=== PATIENT | male | born 1950 | race Caucasian/White ===

== ENCOUNTER 2016-08-31 18:59 | Emergency (ER) | payer MEDICARE, OTHER ==
[2016-08-31 19:30] LABS: Urine Bilirubin Negative (NEGATIVE); Urine Blood 250 /ul (NEGATIVE); Urine Ketone 5 mg/dL (NEGATIVE); Urine Nitrite Negative (NEGATIVE); Urine Protein 100 mg/dL (NEGATIVE); Urine Specific Gravity >=1.030 SP.GR. (1.005-1.030); Urine Urobilinogen Normal (NORMAL)
[2016-08-31 19:42] LABS: Urine Appearance Turbid; Urine Bacteria TRACE; Urine Color Yellow; Urine WBC >50 /hpf (0-5)
--- NOTE | 2016-08-31 19:43 | ERNOTE ---
ER Male HPI Date of Service: 08/31/16 Stated Complaint: UTI Time Seen by Provider: 08/31/16 19:22 Source: patient Exam Limitations: no limitations Immunizations: IMMUNIZATION HX Immunizations Up to Date Yes History of Influenza Vaccine No Hx Pneumococcal Vaccination No Allergies/Adverse Reactions: Allergies No Known Allergies Allergy (Verified 01/14/15 07:49) Home Medications: HOME MEDICATIONS Tamsulosin HCl [Flomax] 0.4 mg PO HS 11/07/13 [Last Taken Unknown] Propranolol HCl [Inderal] 15 mg PO BID 06/21/14 [Last Taken 01/14/15 05:00 10 mg ] Blood Sugar Diagnostic, Drum [Accu-Chek Compact] 1 each MC DAILY 01/08/15 [Last Taken Unknown] Primidone [Mysoline] 25 mg PO DAILY 01/08/15 [Last Taken Unknown] metFORMIN HCL [Glucophage] 850 mg PO BIDWM 01/08/15 [Last Taken Unknown] oxyCODONE HCL [Oxycontin] 10 mg PO BID #20 tab.sr.12h 01/17/15 [Last Taken Unknown] Sulfamethoxazole/Trimethoprim [Bactrim Ds] 1 tab PO BID #28 tab 08/31/16 [Last Taken Unknown] - History of Present Illness Narrative: Pt. comes in with c/o dysuria, frequency, and retention for four days. Pt. states that he has vague R flank pain since this morning as well. Pt. denies any SOB, wheezing, NVD, but does state that he has bladder pain that is unrelieved as he has difficulty urinating and states that if he could urinate it would be better. Review of Systems - Review of Systems Constitutional: Present: no symptoms reported. Absent: recent illness, fever, chills, fatigue, malaise EYE: Present: no symptoms reported ENT: Present: no symptoms reported Respiratory: Present: no symptoms reported. Absent: shortness of breath, cough , wheezing Cardiology: Present: no symptoms reported. Absent: chest pain, palpitations, edema Gastrointestinal/Abdominal: Present: no symptoms reported. Absent: nausea, vomiting, diarrhea, abdominal pain Genitourinary: Present: frequency, pain, dysuria, decreased urinary output, discharge. Absent: hematuria Musculoskeletal: Present: no symptoms reported. Absent: back pain, joint pain Skin: Present: no symptoms reported Neurological: Present: no symptoms reported All Other Systems: All systems neg except as marked - Patient's Past Medical History Patient History - Medical: Chronic Pain, Diabetes Type 2, Kidney stone, Osteoarthritis Patient History - Cancer: No Hx of Cancer Patient History - Surgical Procedures: Amputation, Gastric Bypass - Family History Mother Family History - Medical: Diabetes Type 2 Family History - Cardiac/Respiratory: No pertinent hx Father Family History - Medical: Family History - Cardiac/Respiratory: Coronary Heart Disease, COPD Grandmother-Paternal Family History - Medical: , Diabetes Type 2 Family History - Cardiac/Respiratory: No pertinent hx Grandmother-Maternal Family History - Medical: , Diabetes Type 2 Family History - Cardiac/Respiratory: No pertinent hx - Social History Living Situations: home Smoking Status: Former smoker Alcohol Use: rarely Physical Exam - Physical Exam General Appearance: Present: wd/wn, alert, no apparent distress Eye Exam: Normal inspection: bilateral, PERRL: bilateral, EOMI: bilateral Ears, Nose, Throat: Present: normal ENT inspection, hearing grossly normal, normal pharynx Neck: Present: normal inspection, nontender. Absent: lymphadenopathy (R), lymphadenopathy (L) Respiratory: Present: no respiratory distress, normal breath sounds, no accessory muscle use, chest nontender, lungs clear Cardiovascular/Chest: Present: regular rate, rhythm, normal peripheral pulses, systolic murmur Male Genitals Exam: Present: normal genitalia, no hernia, high riding prostate. Absent: epididymal tenderness, scrotum tenderness (R), scrotum tenderness (L) , testicular tenderness (R), testicular tenderness (L), urethral discharge Back Exam: Present: normal range of motion, no vertebral tenderness, CVA tenderness (R) Extremity Exam: Present: normal inspection Neurological Exam: Present: alert, oriented, normal mood/affect, no motor/ sensory deficits Skin Exam: Present: normal color, warm/dry. Absent: pallor, skin rash ED Progress - Results and Orders Patient's Lab Results:: I have reviewed the patient's lab results. - Vital Signs Patient's Vital Signs:: I have reviewed the patient's vital signs. Vital Signs: Vital Signs 08/31/16 19:17 Temperature 36.7 C Pulse Rate 71 Respiratory 16 Rate Blood Pressure 139/73 O2 Sat by Pulse 97 Oximetry - CT/Ultrasound CT/Ultrasound Narrative: CT scan notable to not have any renal stones but with R hydronephrosis and hydroureter with bladder wall thickening - Progress/Reassessment Chief Complaint: Genitourinary Problem Plan - Plan Plan: Cystitis- Will treat as infectious with Bactrim and have pt. follow up with his PCP for further evaluation of his urinary system Departure Clinical Impression: Cystitis, Pyelonephritis, acute Prostatitis Qualifiers: Prostatitis type: acute Qualified Code(s): N41.0 - Acute prostatitis - Departure Disposition: Home self-care Condition: Good Instructions: Prostatitis, [id number] Additional Instructions: Please follow up with primary provider in 2-3 days to discuss further workup. Referrals: Carlos Luo DO [Primary Care Provider] - Prescriptions: Sulfamethoxazole/Trimethoprim [Bactrim Ds] 1 tab PO BID #28 tab
[2016-08-31 20:14] LABS: Hemoglobin 11.4 gm/dL (13.5-18.0); Mean Cell Volume 77.1 fl (78-100); Mean Corpuscular Hemoglobin 24.4 pg (27-31); Mean Corpuscular Hgb Conc 31.7 g/dl (32-36); Mean Platelet Volume 8.1 fl (6.0-9.5); Neutrophil # 5.8 K/mm3 (1.3-6.0); Neutrophil % 66.9 % (42-75.0); Platelet Count 270 K/mm3 (150-450); Red Blood Count 4.67 M/mm3 (4.7-6.0); Red Cell Distribution Width 15.9 % (11.5-14.0); White Blood Count 8.6 K/mm3 (4.0-10.5)
[2016-08-31 20:27] LABS: Albumin * 3.3 gm/dl (3.4-5.0); Anion Gap 15.2 mmol/L (6.8-13.8); BUN/Creatinine Ratio 18.8 (9.0-21.6); Bilirubin, Total 0.2 mg/dL (0.0-1.1); Ca. Corrected For Albumin 8.6 mg/dL (8.4-10.2); Calcium * 8.4 mg/dL (7.9-10.9); Carbon Dioxide 27.5 mmol/L (24-32.6); Potassium 4.7 mmol/L (3.4-4.6); Total Protein 7.6 gm/dL (6.2-8.2)
[2016-08-31 20:51] VITALS: BP 127/71
[2016-08-31] MEDS ORDERED: SULFAMETHOXAZOLE/TRIMETHOPRIM 1 TAB TABLET PO ONE (21:31)
[2016-08-31] MEDS ORDERED: SULFAMETHOXAZOLE/TRIMETHOPRIM 1 TAB TABLET ONE (21:31)
== END 2016-08-31 21:36 | disposition home or self-care (01) ==
LOC: ER 18:59
PROC: BT40ZZZ Ultrasonography of Bladder (ICD-10-PCS; principal; 2016-08-31)
DX: N30.00 Acute cystitis without hematuria (principal); N10 Acute pyelonephritis; N41.0 Acute prostatitis; Z87.891 Personal history of nicotine dependence; E11.9 Type 2 diabetes mellitus without complications; Z87.442 Personal history of urinary calculi

== ENCOUNTER 2016-09-08 13:07 | Observation (INO) | payer MEDICARE, OTHER ==
[2016-09-08 13:48] LABS: Hemoglobin 10.5 gm/dL (13.5-18.0); Mean Cell Volume 77.8 fl (78-100); Mean Corpuscular Hgb Conc 30.9 g/dl (32-36); Mean Platelet Volume 8.2 fl (6.0-9.5); Neutrophil # 7.9 K/mm3 (1.3-6.0); Neutrophil % 72.9 % (42-75.0); Platelet Count 270 K/mm3 (150-450); Red Blood Count 4.37 M/mm3 (4.7-6.0); Red Cell Distribution Width 16.4 % (11.5-14.0); White Blood Count 10.8 K/mm3 (4.0-10.5)
[2016-09-08 14:02] LABS: Albumin * 3.4 gm/dl (3.4-5.0); Anion Gap 18.1 mmol/L (6.8-13.8); BUN/Creatinine Ratio 12.8 (9.0-21.6); Bilirubin, Total 0.2 mg/dL (0.0-1.1); Ca. Corrected For Albumin 9.2 mg/dL (8.4-10.2); Carbon Dioxide 21.6 mmol/L (24-32.6); Potassium 5.7 mmol/L (3.4-4.6); Total Protein 7.3 gm/dL (6.2-8.2)
[2016-09-08] MEDS ORDERED: NORMAL SALINE 1,000 ML IV ONE (14:36)
[2016-09-08] MEDS ORDERED: SODIUM POLYSTYRENE SULFON/SORB 15 G/60 ML BTL PO ONE ×2 (14:48→20:28)
--- NOTE | 2016-09-08 14:49 | ERNOTE ---
Medical Problem HPI - Narrative Date of Service: 09/08/16 - General Chief Complaint: General Assessment Time Seen by Provider: 09/08/16 14:15 Source: patient Exam Limitations: no limitations - Immun/Allergies/Home Medications Immunizations: IMMUNIZATION HX Immunizations Up to Date Yes History of Influenza Vaccine No Hx Pneumococcal Vaccination No Allergies/Adverse Reactions: Allergies Influenza Virus Vaccines Adverse Reaction (Verified 09/08/16 13:26) Vomiting Home Medications: HOME MEDICATIONS Tamsulosin HCl [Flomax] 0.4 mg PO HS 11/07/13 [Last Taken Unknown] Propranolol HCl [Inderal] 15 mg PO BID 06/21/14 [Last Taken 01/14/15 05:00 10 mg ] Blood Sugar Diagnostic, Drum [Accu-Chek Compact] 1 each MC DAILY 01/08/15 [Last Taken Unknown] Primidone [Mysoline] 25 mg PO DAILY 01/08/15 [Last Taken Unknown] metFORMIN HCL [Glucophage] 850 mg PO BIDWM 01/08/15 [Last Taken Unknown] oxyCODONE HCL [Oxycontin] 10 mg PO BID #20 tab.sr.12h 01/17/15 [Last Taken Unknown] Sulfamethoxazole/Trimethoprim [Bactrim Ds] 1 tab PO BID #28 tab 08/31/16 [Last Taken Unknown] - History of Present History Narrative: Pt. comes in with c/o being notified of an elevated potassium by his urology office during a follow up exam for catheter removal. Pt. was recently treated for acute urinary retention. Pt. denies any symptoms as CP, palpitations, SOB, NVD, dysuria but does state that he has had some blood in his urine since this morning when he had a catheter removed. Review of Systems - Review of Systems Constitutional: Present: no symptoms reported. Absent: recent illness, fever, chills, weakness, fatigue, malaise EYE: Present: no symptoms reported ENT: Present: no symptoms reported Respiratory: Present: no symptoms reported. Absent: shortness of breath, cough , wheezing Cardiology: Present: no symptoms reported. Absent: chest pain, palpitations, edema Gastrointestinal/Abdominal: Present: no symptoms reported. Absent: nausea, vomiting, diarrhea Genitourinary: Present: hematuria. Absent: frequency, pain, dysuria, decreased urinary output Musculoskeletal: Present: no symptoms reported. Absent: back pain, joint pain Skin: Present: no symptoms reported Neurological: Present: no symptoms reported. Absent: headache, dizziness/light- headedness, numbness, tingling All Other Systems: All systems neg except as marked - Patient's Past Medical History Patient History - Medical: Chronic Pain, Diabetes Type 2, Kidney stone, Osteoarthritis Patient History - Cancer: No Hx of Cancer Patient History - Surgical Procedures: Amputation, Gastric Bypass - Family History Mother Family History - Medical: Diabetes Type 2 Family History - Cardiac/Respiratory: No pertinent hx Father Family History - Medical: Family History - Cardiac/Respiratory: Coronary Heart Disease, COPD Grandmother-Paternal Family History - Medical: , Diabetes Type 2 Family History - Cardiac/Respiratory: No pertinent hx Grandmother-Maternal Family History - Medical: , Diabetes Type 2 Family History - Cardiac/Respiratory: No pertinent hx - Social History Living Situations: home Smoking Status: Former smoker Have you smoked in the past 12 months: No Alcohol Use: rarely Physical Exam - Physical Exam General Appearance: Present: wd/wn, alert, no apparent distress Eye Exam: Normal inspection: bilateral, PERRL: bilateral, EOMI: bilateral Ears, Nose, Throat: Present: normal ENT inspection, hearing grossly normal, normal pharynx Neck: Present: normal inspection, nontender. Absent: lymphadenopathy (R), lymphadenopathy (L) Respiratory: Present: no respiratory distress, normal breath sounds, no accessory muscle use, chest nontender, lungs clear Cardiovascular/Chest: Present: regular rate, rhythm, no murmur, normal peripheral pulses Gastrointestinal/Abdominal: Present: normal bowel sounds, nontender, nondistended, soft, no organomegaly Back Exam: Present: normal inspection, normal range of motion, no CVA tenderness , no vertebral tenderness Extremity Exam: Present: normal inspection, non-tender, no edema, normal range of motion Neurological Exam: Present: alert, oriented, normal mood/affect, no motor/ sensory deficits, 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 Absent: pallor, skin rash ED Progress - Date and Time Seen: Date and Time: 09/08/16 15:[address] Aldana and he would like us to re-CT pt. to evaluate for acute obstruction. Discussed results with Dr Aldana and he recommends admission to monitor for potassium levels and hydration. 09/08/16 16:[address] Luo and he accepts admission of pt. for hyperkalemia and AMBERLY - Results and Orders Patient's Lab Results:: I have reviewed the patient's lab results. - Vital Signs Patient's Vital Signs:: I have reviewed the patient's vital signs. Vital Signs: Vital Signs 09/08/16 09/08/16 13:23 14:08 Temperature 36.4 C L Pulse Rate 65 64 Respiratory 12 16 Rate Blood Pressure 102/59 O2 Sat by Pulse 97 98 Oximetry - EKG EKG: other - Sinus herlinda, no U waves or peaked Ts - CT/Ultrasound CT/Ultrasound Narrative: CT pelvis with resolving R sided hydronephrosis and new L sided pelviectasis. - Progress/Reassessment Chief Complaint: General Assessment Departure - Departure Clinical Impression: Hyperkalemia, Acute renal insufficiency Disposition: [facility] Condition: Fair
[2016-09-08] MEDS ORDERED: SODIUM POLYSTYRENE SULFON/SORB 15 G/60 ML BTL ONE (15:47)
[2016-09-08] MEDS: NORMAL SALINE 1,000 ML IV PRN (17:10)
[2016-09-08] MEDS ORDERED: TAMSULOSIN HCL 0.4 MG CAP.SR.24H PO SCH (21:00)
--- NOTE | 2016-09-08 21:23 | HP ---
Chief Complaint - Chief Complaint Date of Service: 09/08/16 Time of Service: 21:22 Chief Complaint: ' HOWARD, Hyperkalemia'. Source- Pt; reliable, ER provider notes , Pt's EMR. History of Present Illness: Mr. Bhandari is a 65-yr-old WM pt of Dr Carlos Luo with a PMH of: DM II, DVT, HTN, Kidney Stones, ALEJANDRO & Osteoathritis. Pt has been seeing Urology ( Dr. Soto) for urinary retention. He was treated recently for Hydronephrosis and his indwelling arias catheter was removed today at the urologist's office during a follow-up visit at the [facility]. Pt was referred to come to the [facility] ER today following abdominal labs that were drawn at Dr. Soto's office. His Potassium level was specifically found to be elevated at 5.7. The laboratory work in the ER showed HOWARD with a BUN/creatinine of 25/ 1.95. Pt denies fever & chills. He also denies n/v, diarrhea & Dysuria. Pt will be admitted under observation status due to HOWARD, & Hyperkalemia which will require correction with IVF hydration. 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 - Family History Mother Family History - Medical: , Diabetes Type 2 Family History - Cardiac/Respiratory: No pertinent hx Father Family History - Medical: Family History - Cardiac/Respiratory: Coronary Heart Disease, COPD Grandmother-Paternal Family History - Medical: , Diabetes Type 2 Family History - Cardiac/Respiratory: No pertinent hx Grandmother-Maternal Family History - Medical: , Diabetes Type 2 Family History - Cardiac/Respiratory: No pertinent hx - Social History Living Situations: home Smoking Status: Former smoker Have you smoked in the past 12 months: No Do you dip or chew tobacco: No Patient requests Smoking Cessation Consult: No Initiate information on Smoking Cessation: No Alcohol Use: rarely - Immunizations Immunizations Up to Date: Yes Hx Pneumococcal Vaccination: Yes History of Influenza Vaccine: Yes Review Of Systems (GEN) - Review of Systems Generalized/Overall Review: Absent: Weakness, Chills, Fever EENTM: Absent: Eye Pain, Blurred Vision, Double Vision, Nose Congestion Respiratory: Absent: Cough, Shortness of Breath Cardiac: Absent: Chest Pain, Edema, Palpitations Abdominal: Absent: Nausea, Vomiting, Abdominal Pain, Diarrhea Genitourinary: Absent: Burning, Itching Musculoskeletal: Absent: Joint Pain, Back Pain, Joint Swelling Neurological: Absent: Headache, Anxiety, Depressed, Tremors Skin: Absent: Dryness, Lesions, Lumps Endocrine: Absent: Intolerance to Cold, Intolerance to Heat, Increased Thirst Misc: All systems neg except as marked Allergies/Adverse Reactions: Allergies Allergy/AdvReac Type Severity Reaction Status Date / Time Influenza Virus Vaccines AdvReac Vomiting Verified 09/08/16 18:07 Home Medications: HOME MEDICATIONS Tamsulosin HCl [Flomax] 0.4 mg PO HS 11/07/13 [Last Taken Unknown] Propranolol HCl [Inderal] 15 mg PO BID 06/21/14 [Last Taken 09/08/16] Blood Sugar Diagnostic, Drum [Accu-Chek Compact] 1 each MC DAILY 01/08/15 [Last Taken Unknown] Primidone [Mysoline] 150 mg PO TID 01/08/15 [Last Taken 09/08/16] metFORMIN HCL [Glucophage] 850 mg PO BIDWM 01/08/15 [Last Taken 09/08/16] Sulfamethoxazole/Trimethoprim [Bactrim Ds] 1 tab PO BID #28 tab 08/31/16 [Last Taken 09/08/16] oxyCODONE HCL [Oxycontin] 10 mg PO BID PRN 09/08/16 [Last Taken Unknown] Exam - Exam Vital Signs: Vital Signs - Last Taken Temp 36.8 C 09/08/16 17:17 Pulse 71 09/08/16 17:17 Resp 16 09/08/16 17:17 BP 132/60 09/08/16 17:17 Pulse Ox 98 09/08/16 17:17 Constitutional: Present: Alert, Oriented x3, No distress ENT Exam: Present: normal ENT inspection, hearing grossly normal. Absent: nasal congestion, nasal drainage Eye Exam: bilateral eye: normal inspection, PERRL Neck: Present: full range of motion Back Exam: Present: normal inspection, no CVA tenderness Breasts: Present: Exam deferred Respiratory: Present: lungs clear, no accessory muscle use, No wheezing Cardiovascular/Chest: Present: regular rate, rhythm, no murmur Abdomen: Present: Normal bowel sounds, soft, nontender /Rectal: Present: Exam deferred Extremity: Present: normal range of motion, non-tender, no calf tenderness, other - RT AKA Skin Exam: Present: warm/dry, no cyanosis, cool/dry Neurologic: Present: no motor/sensory deficits, alert, oriented x 3 Appearance: Present: appropriate appearance, appropriate insight Eye contact: Present: cooperative, good eye contact, normal speech Thoughts: Present: normal thought pattern, no apparent hallucination Diagnostic Studies: Laboratory Results WBC 10.8 K/mm3 (4.0-10.5) H 09/08/16 13:44 Corrected WBC (auto) Ag[employer] 09/08/16 13:44 RBC 4.37 M/mm3 (4.7-6.0) L 09/08/16 13:44 Hgb 10.5 gm/dL (13.5-18.0) L 09/08/16 13:44 Hct 34.0 % (42.0-52.0) L 09/08/16 13:44 MCV 77.8 fl (78-100) L 09/08/16 13:44 MCH 24.0 pg (27-31) L 09/08/16 13:44 MCHC 30.9 g/dl (32-36) L 09/08/16 13:44 RDW 16.4 % (11.5-14.0) H 09/08/16 13:44 Plt Count 270 K/mm3 (150-450) 09/08/16 13:44 MPV 8.2 fl (6.0-9.5) 09/08/16 13:44 Immature Gran % (Auto) 0.60 % (0.001-0.429) H 09/08/16 13:44 Immature Gran # (Auto) 0.06 K/mm3 (0.000-0.0310) H 09/08/16 13:44 Add Manual Diff Cancelled 09/08/16 13:44 Neutrophils % 72.9 % (42-75.0) 09/08/16 13:44 Lymphocytes % 18.8 % (20-51) L 09/08/16 13:44 Monocytes % 4.5 % (0.0-9) 09/08/16 13:44 Eosinophils % 2.4 % (0.0-3.0) 09/08/16 13:44 Basophils % 0.8 % (0.0-1.0) 09/08/16 13:44 Nucleated RBC % 0.0 k/mm3 (0-1) 09/08/16 13:44 Neutrophils # 7.9 K/mm3 (1.3-6.0) H 09/08/16 13:44 Lymphocytes # 2.0 k/mm3 (1.5-3.5) 09/08/16 13:44 Monocytes # 0.5 k/mm3 (0.0-1.0) 09/08/16 13:44 Eosinophils # 0.3 k/mm3 (0.0-0.7) 09/08/16 13:44 Absolute Basophils 0.1 k/mm3 (0.0-0.1) 09/08/16 13:44 Sodium 132 mmol/L (132-142) 09/08/16 13:44 Plasma Sodium 132 mmol/L (130-142) 09/08/16 13:44 Potassium 5.7 mmol/L (3.4-4.6) H D 09/08/16 13:44 Chloride 98 mmol/L (97-106) 09/08/16 13:44 Carbon Dioxide 21.6 mmol/L (24-32.6) L 09/08/16 13:44 Anion Gap 18.1 mmol/L (6.8-13.8) H 09/08/16 13:44 BUN 25 mg/dL (6-23) H D 09/08/16 13:44 Creatinine 1.95 mg/dL (0.4-1.4) H D 09/08/16 13:44 Est GFR (Non-Af Amer) 37 mL/min (60-130) L D 09/08/16 13:44 BUN/Creatinine Ratio 12.8 (9.0-21.6) 09/08/16 13:44 Random Glucose 98 mg/dL (70-110) 09/08/16 13:44 Calcium 9.0 mg/dL (7.9-10.9) 09/08/16 13:44 Calcium Adj for Albumin 9.2 mg/dL (8.4-10.2) 09/08/16 13:44 Total Bilirubin 0.2 mg/dL (0.0-1.1) 09/08/16 13:44 AST 20 U/L (0-48) 09/08/16 13:44 ALT 20 U/L (19-67) 09/08/16 13:44 Alkaline Phosphatase 110 U/L (50-170) 09/08/16 13:44 Total Protein 7.3 gm/dL (6.2-8.2) 09/08/16 13:44 Albumin 3.4 gm/dl (3.4-5.0) 09/08/16 13:44 Assessment/Plan - Assessment/Plan (1) Acute kidney failure Assessment: Mr. Bhandari is a 65-yr-old WM with known history of Kidney stones who was seen recently by Urology for Hydronephrosis. I do not have access to the Urologist's notes to determine the course of events and interventions. It does appear from clinical presentation today that he had signs of HOWARD. His base line Cr is usually under 1.00, whereas with today's electrolyte labs, it was 1.95. He is not on any nephrotoxic drugs & he does not have any sign of volume overload. His HOWARD dose not seem to have any prerenal causes as is there is no volume depletion from diarrhea, or diuretics or signs of hemorrhage. I suspect that his HOWARD is likely post-renal but with his catheter being removed on by the urolology, am uncertain if there is extrarenal or intrarenal obstruction. Will provide aggressive hydration with IVF and consult Urology again in am. Monitor labs in am Problem: Acute (2) Hyperkalemia Assessment: Received Kayexalate in ER. Will place on Remote telemetry monitoring, IVF hydration. Labs in am. Problem: Acute (3) HTN (hypertension) Problem: Chronic Qualifiers: Hypertension type: essential hypertension Qualified Code(s): I10 - Essential (primary) hypertension (4) Diabetes mellitus Problem: Chronic Qualifiers: Diabetes mellitus type: type 2
[2016-09-08] MEDS: PRIMIDONE 50 MG TABLET PO SCH (21:25)
[2016-09-08] MEDS: PROPRANOLOL HCL 10 MG TABLET PO SCH (21:25)
[2016-09-08 23:25] LABS: Urine Bilirubin Negative (NEGATIVE); Urine Blood 250 /ul (NEGATIVE); Urine Ketone Negative (NEGATIVE); Urine Nitrite Negative (NEGATIVE); Urine Protein 100 mg/dL (NEGATIVE); Urine Specific Gravity 1.015 SP.GR. (1.005-1.030); Urine Urobilinogen Normal (NORMAL)
[2016-09-08 23:40] LABS: Urine Appearance Turbid; Urine Bacteria TRACE; Urine Color Red; Urine RBC >50 /hpf (0-5); Urine WBC 0-5 /hpf (0-5)
[2016-09-09] MEDS: NORMAL SALINE 1,000 ML IV PRN ×2 (01:22→09:30)
[2016-09-09 05:36] LABS: Hemoglobin 9.8 gm/dL (13.5-18.0); Mean Cell Volume 76.5 fl (78-100); Mean Corpuscular Hemoglobin 24.2 pg (27-31); Mean Corpuscular Hgb Conc 31.6 g/dl (32-36); Mean Platelet Volume 8.5 fl (6.0-9.5); Neutrophil # 4.6 K/mm3 (1.3-6.0); Neutrophil % 65.9 % (42-75.0); Platelet Count 228 K/mm3 (150-450); Red Blood Count 4.05 M/mm3 (4.7-6.0); Red Cell Distribution Width 16.1 % (11.5-14.0)
[2016-09-09 05:51] LABS: Anion Gap 12.7 mmol/L (6.8-13.8); BUN/Creatinine Ratio 15.1 (9.0-21.6); Calcium * 8.5 mg/dL (7.9-10.9); Carbon Dioxide 24.3 mmol/L (24-32.6); Estimated Creat Clear 78.3
[2016-09-09] MEDS: PROPRANOLOL HCL 10 MG TABLET PO SCH (09:31)
[2016-09-09] MEDS: PRIMIDONE 50 MG TABLET PO SCH ×3 (09:31→17:14)
--- NOTE | 2016-09-09 17:01 | DS ---
(1) Acute kidney failure Diagnosis(s): Secondary to prerenal dehydration. Corrected with IVF and normalized at discharge. Problem: Suspected (2) Hyperkalemia Diagnosis(s): Resolved with IVF. Problem: Acute Procedures Performed: none Discharge Disposition: Home self care Disposition: Home self-care Condition: Good Discharge Activity: Activity as tolerated Discharge Diet: Consistent carbs Referrals: Jovan Hamlin MD [Associate] - 09/22/16 ([facility] ( Already scheduled) They will call prior to appointment to report a time.) Problem Oriented Discharge Instructions to Patient/Family: Acute Kidney Injury , Hyperkalemia, [id number], Potassium Content of Foods Additional Patient Instructions (free text): 1) Limit foods high in potassium 2) Will recheck bloodwork 09/11/15 3) Drink lots of water LAB - BMP 09/11 Complete Home Medications List: Complete Home Medication List: Tamsulosin HCl [Flomax] 0.4 mg PO HS 11/07/13 Propranolol HCl [Inderal] 15 mg PO BID 06/21/14 Blood Sugar Diagnostic, Drum [Accu-Chek Compact] 1 each MC DAILY 01/08/15 Primidone [Mysoline] 150 mg PO TID 01/08/15 metFORMIN HCL [Glucophage] 850 mg PO BIDWM 01/08/15 Sulfamethoxazole/Trimethoprim [Bactrim Ds] 1 tab PO BID #28 tab 08/31/16 oxyCODONE HCL [Oxycontin] 10 mg PO BID PRN 09/08/16 Amb Orders for Discharge: Basic Metabolic Panel Time Frame: 09/11/16, Facility: [facility], Location: Laboratory
[2016-09-09 18:17] VITALS: BP 122/49
== END 2016-09-09 18:45 | disposition home or self-care (01) ==
LOC: ER 13:07 → MS 16:23
PROVIDERS: ADMIT Family Medicine; ATTEND Family Medicine
DX: N17.9 Acute kidney failure, unspecified (principal); E87.5 Hyperkalemia; E86.0 Dehydration; E11.9 Type 2 diabetes mellitus without complications; I10 Essential (primary) hypertension; Z87.442 Personal history of urinary calculi; Z87.891 Personal history of nicotine dependence
CPT/HCPCS: 36415; 74176; 80048; 80053; 81001; 85025; 87081; 87086; 93005; 99283; G0378

== ENCOUNTER 2016-09-11 22:53 | Emergency (ER) | payer MEDICARE, OTHER ==
[2016-09-11 23:41] LABS: Hematocrit 31.2 % (42.0-52.0); Hemoglobin 9.9 gm/dL (13.5-18.0); Mean Cell Volume 77.4 fl (78-100); Mean Corpuscular Hemoglobin 24.6 pg (27-31); Mean Corpuscular Hgb Conc 31.7 g/dl (32-36); Mean Platelet Volume 8.4 fl (6.0-9.5); Neutrophil # 5.2 K/mm3 (1.3-6.0); Neutrophil % 60.2 % (42-75.0); Platelet Count 276 K/mm3 (150-450); Red Blood Count 4.03 M/mm3 (4.7-6.0); Red Cell Distribution Width 16.5 % (11.5-14.0); White Blood Count 8.6 K/mm3 (4.0-10.5)
[2016-09-11 23:49] LABS: Urine Bilirubin 1 mg/dl (NEGATIVE); Urine Blood 250 /ul (NEGATIVE); Urine Ketone Negative (NEGATIVE); Urine Nitrite Negative (NEGATIVE); Urine Protein 100 mg/dL (NEGATIVE); Urine Specific Gravity >=1.030 SP.GR. (1.005-1.030); Urine Urobilinogen Normal (NORMAL)
[2016-09-11 23:54] LABS: BUN/Creatinine Ratio 11.4 (9.0-21.6); Carbon Dioxide 23.2 mmol/L (24-32.6); Potassium 4.7 mmol/L (3.4-4.6)
[2016-09-11 23:55] LABS: Albumin * 3.2 gm/dl (3.4-5.0); Anion Gap 6.5 mmol/L (6.8-13.8); Bilirubin, Total 0.2 mg/dL (0.0-1.1); Ca. Corrected For Albumin 9.2 mg/dL (8.4-10.2); Calcium * 8.9 mg/dL (7.9-10.9); Total Protein 7.2 gm/dL (6.2-8.2)
[2016-09-12 00:03] LABS: Urine Appearance Turbid; Urine Bacteria 2+; Urine Color Brown; Urine Hyaline Cast 0-5 /LPF; Urine Other Crystal Few - 1+ /hpf; Urine RBC >50 /hpf (0-5)
[2016-09-12] MEDS ORDERED: NORMAL SALINE 1,000 ML IV ONE ×2 (00:08→01:21)
--- NOTE | 2016-09-12 02:18 | ERNOTE ---
Medical Problem HPI - Narrative Date of Service: 09/12/16 - General Chief Complaint: General Assessment Time Seen by Provider: 09/11/16 23:35 Source: patient, family - Immun/Allergies/Home Medications Immunizations: IMMUNIZATION HX Immunizations Up to Date Yes History of Influenza Vaccine No Hx Pneumococcal Vaccination No Allergies/Adverse Reactions: Allergies Influenza Virus Vaccines Adverse Reaction (Verified 09/08/16 18:07) Vomiting Home Medications: HOME MEDICATIONS Tamsulosin HCl [Flomax] 0.4 mg PO HS 11/07/13 [Last Taken Unknown] Propranolol HCl [Inderal] 15 mg PO BID 06/21/14 [Last Taken 09/08/16] Blood Sugar Diagnostic, Drum [Accu-Chek Compact] 1 each MC DAILY 01/08/15 [Last Taken Unknown] Primidone [Mysoline] 150 mg PO TID 01/08/15 [Last Taken 09/08/16] metFORMIN HCL [Glucophage] 850 mg PO BIDWM 01/08/15 [Last Taken 09/08/16] Sulfamethoxazole/Trimethoprim [Bactrim Ds] 1 tab PO BID #28 tab 08/31/16 [Last Taken 09/08/16] oxyCODONE HCL [Oxycontin] 10 mg PO BID PRN 09/08/16 [Last Taken Unknown] - History of Present History Narrative: Here for feeling weak and dehydrated, also complains of Dysuria on BactrimDS Review of Systems - Review of Systems Constitutional: Present: fatigue, malaise EYE: Present: no symptoms reported ENT: Present: no symptoms reported Respiratory: Present: no symptoms reported Cardiology: Present: no symptoms reported Gastrointestinal/Abdominal: Present: no symptoms reported Skin: Present: no symptoms reported - Patient's Past Medical History Patient History - Medical: Chronic Pain, Diabetes Type 2, Kidney stone, Osteoarthritis, Other Patient History - Cardiac/Respiratory: Deep Vein Thrombosis, Hypertension, Other - Kidney Stones Patient History - Cancer: No Hx of Cancer Patient History - Surgical Procedures: Amputation, Gastric Bypass, Total Knee Replacement - Family History Mother Family History - Medical: , Diabetes Type 2 Family History - Cardiac/Respiratory: No pertinent hx Father Family History - Medical: Family History - Cardiac/Respiratory: Coronary Heart Disease, COPD Grandmother-Paternal Family History - Medical: , Diabetes Type 2 Family History - Cardiac/Respiratory: No pertinent hx Grandmother-Maternal Family History - Medical: , Diabetes Type 2 Family History - Cardiac/Respiratory: No pertinent hx - Social History Living Situations: home Smoking Status: Never smoker Have you smoked in the past 12 months: No Do you dip or chew tobacco: No Patient requests Smoking Cessation Consult: No Alcohol Use: rarely Drug Use: none Physical Exam - Physical Exam General Appearance: Present: wd/wn, alert, no apparent distress Neck: Present: normal inspection, nontender Respiratory: Present: no respiratory distress, normal breath sounds, no accessory muscle use, chest nontender, lungs clear Cardiovascular/Chest: Present: regular rate, rhythm, no murmur, normal peripheral pulses ED Progress - Results and Orders Patient's Lab Results:: I have reviewed the patient's lab results. - patient's urine is very concentrated and pt appears dehydrated - Vital Signs Patient's Vital Signs:: I have reviewed the patient's vital signs. Vital Signs: Vital Signs 09/11/16 09/12/16 22:57 00:57 Temperature 36.9 C Pulse Rate 67 55 L Respiratory 16 18 Rate Blood Pressure 114/68 136/76 O2 Sat by Pulse 97 100 Oximetry - Progress/Reassessment Chief Complaint: General Assessment Progress:: Improved Departure - Departure Clinical Impression: Dehydration Disposition: Home self-care Condition: Good Instructions: Rehydration, Adult
[2016-09-12 02:30] VITALS: BP 149/75
== END 2016-09-12 02:35 | disposition home or self-care (01) ==
LOC: ER 22:53
DX: E86.0 Dehydration (principal)

== ENCOUNTER 2016-12-28 15:26 | Emergency (ER) | payer MEDICARE, OTHER ==
[2016-12-28 15:26] VITALS: BP 149/75
--- OUTSIDE RECORDS SUMMARY | 2016-12-28 15:40 | XMS REPORT | Continuity of Care Document ---
:1950 Author Organization [facility] ([facility]) Address [address] [place] [address] Phone [phone] Care Team Providers Name Role Phone Carlos Luo Primary Care Provider [phone] Source Comments This disclosure is being made pursuant to the Care Everywhere program, applicable federal and state laws, and may not contain all informaitonavailable regarding this patient.[facility] ([facility]) Active Allergies and Adverse Reactions No Known Allergies Current Medications Prescription Sig. Disp. Refills Start End Date Status Date metFORMIN Take 850 mg by Active (GLUCOPHAGE) 850 mouth 2 times mg tablet daily. tamsulosin 0.4 mg Take 0.4 mg by Active ER capsule mouth at bedtime. sildenafil Take 1 Tab (100 mg 6 Tab Active (VIAGRA) 100 mg total) by mouth as 5 tablet needed Take 1 hour prior to sexual activity. primidone 50 mg Take 100 mg by Active tablet mouth 3 times daily. bacitracin topical Apply topically 3 15 g Active ointment times daily. 7 docusate 100 mg Take 1 capsule 60 capsule Active capsule (100 mg total) by 7 mouth 2 times daily. oxyCODONE 5 mg Take 1-2 tablets 90 tablet 0 Active immediate release (5-10 mg total) by 7 tablet mouth every 4 hours as needed for pain. sennosides 8.6 mg Take 1-2 tablets 60 tablet 10 Active tablet (8.6-17.2 mg 7 total) by mouth daily. oxyCODONE-acetamin Take 1-2 tablets 90 tablet 0 Active ophen 5-325 mg per by mouth every 4 7 tablet hours as needed. HYDROmorphone 2 mg Take 1-2 Tabs by 30 Tab 0 12/16/19 Discontinued tablet mouth 4 times 4 17 daily as needed (surgical pain). Indications: PAIN oxyCODONE-acetamin Take 1-2 Tabs by 40 Tab 0 12/16/19 Discontinued ophen 5-325 mg per mouth every 6 4 17 tablet hours as needed. Do Not exceed 4000 mg of acetaminophen per 24 hours. Indications: PAIN propranolol 10 mg Take 20 mg by 12/11/19 Discontinued tablet mouth 3 times 17 daily. cephalexin 500 mg Take 1 capsule 4 capsule 0 12/26/19 capsule (500 mg total) by 7 17 mouth 4 times daily for 1 day. Active Problems Problem Noted Date Essential tremor 11/26/2016 Bariatric surgery status 11/19/2016 Hypertension, essential, benign 03/05/2014 Overview: Chronic issue, monitoring Blood pressure, will restart home medications when able. Obstructive sleep apnea 03/05/2014 Hypercholesterolemia 03/05/2014 Overview: On medication Osteoarthrosis, localized, primary, involving lower leg 03/05/2014 Overview: Involved joints include hip and knee. On cymbalta Personal history of pulmonary embolism 03/05/2014 Overview: 2008 after multiple rib fractures, Urethral stricture 12/13/2013 DMII (diabetes mellitus, type 2) 12/13/2013 Overview: Chronic issue, monitoring Blood sugars, on sliding scale to control. S/P below knee amputation 03/04/2012 Resolved Problems Problem Noted Date Resolved Date Obesity (BMI 30-39.9) 03/27/2014 05/09/2015 Overview: Sp gastric bypass on 05/02/14. Obesity hypoventilation syndrome 03/05/2014 11/19/2016 Overview: Obstructive sleep apnea with need for BiPAP. Monitoring in hospital with spO2 and O2 PRN. Most Recent Encounters Date Type Specialty Providers Description 12/25/2016 Nurse Triage General Surgery Ramona Prater Chief Comp: IP Demetria, marketing analytics specialist Follow-up Call 12/24/2016 [facility] Ronny Chapa Dx: Essential tremor Encounter MD Treva (Primary Dx) 12/24/2016 [facility] Ronny Chapa DEEP BRAIN STIMULATOR MD Treva GENERATOR IMPLANTATION (STAGE 2) 12/19/2016 [facility] Emergency Medicine Gayatri Smith MD Dx: Head injury, Encounter initial encounter (Primary Dx) 12/19/2016 Telephone Neurosurgery Tad Mendez, Chief Comp: Advice Only 12/16/2016 Anesthesia Event General Surgery Joycelyn Farnsworth, [place]QU[place] 12/16/2016 Pharmacy Visit 12/15/2016 [facility] Radiology Ronny Chapa Dx: Essential tremor Encounter [facility]il[facility]: [facility] 12/16/2016 Encounter Inpatient - Adult MD Treva (Primary Dx) 12/15/2016 Surgery General Surgery Ronny Chapa STEREOTAXIC DEEP MD Treva BRAIN STIMULATOR, VIM THALAMUS (STAGE 1) 12/14/2016 [facility] Radiology Ernesto Jang Dx: Essential tremor Polina Augustin MD 12/10/2016 Anesthesia Event General Surgery Joycelyn Farnsworth, PASQUALE 12/02/2016 Office Visit Neurosurgery Ronny Chapa Subj: Appointment MD Treva Scheduled 11/26/2016 Office Visit Neurosurgery Ronny Chapa Dx: Essential tremor MD Treva 11/26/2016 Office Visit Neurology Paola Flores, Dx: Essential tremor (Primary Dx) 11/19/2016 Office Visit [facility], Subj: Upcoming Appt Jana Hardin PA-C Reminder Nathalia Garcia MD 11/19/2016 Office Visit [facility], Dx: Bariatric surgery Jana Hardin PA-C status (Primary Dx) Nathalia Garcia MD 10/28/2016 Office Visit Urology René, Subj: Upcoming Appt Amber Augustin MD Reminder 10/15/2016 Office Visit [facility], Dx: Postsurgical Jana Hardin PA-C malabsorption, not Nathalia Garcia MD (Primary Dx) 10/15/2016 Office Visit [facility], Subj: Upcoming Appt Jana Hardin PA-C Reminder Nathalia Garcia MD 10/12/2016 [facility] Radiology René, Subj: Appointment Encounter Amber Augustin MD Scheduled 10/12/2016 Office Visit Urology René, Dx: Hydronephrosis, Amber Augustin MD unspecified hydronephrosis type (Primary Dx) 09/30/2016 Hospital Radiology Brant Orourke, Dx: Hydronephrosis, Encounter unspecified hydronephrosis type 09/30/2016 Office Visit Pathology Allen Young, Dx: Hydronephrosis, JOB PLACEMENT SPECIALIST unspecified Lab Services, hydronephrosis type Irl 09/30/2016 Office Visit Urology René, Dx: Urethral Amber Augustin MD stricture (Primary Dx) Social History Tobacco Use Types Packs/Day Years Used Date Former Smoker Cigarettes, Pipe, Cigars 1.5 27 Quit: 07/28/1997 Smokeless Tobacco: Never Used Tobacco Cessation:Counseling Given: Yes Comments: Alcohol Use Drinks/Week oz/Week Comments Yes rarely Last Filed Vital Signs Vital Sign Reading Time Taken Blood Pressure 132/59 12/24/2016 1:45 PM CDT Pulse 77 12/24/2016 8:35 AM CDT Temperature 36.4 C (97.5 F) 12/24/2016 12:06 PM CDT Respiratory Rate 18 12/24/2016 8:35 AM CDT Height 1.829 m (6' 0.01") 12/24/2016 8:35 AM CDT Weight 94.7 kg (208 lb 12.4 oz) 12/24/2016 8:35 AM CDT Body Mass Index 28.31 12/24/2016 8:35 AM CDT Oxygen Saturation 96% 12/24/2016 12:30 PM CDT Plan of Care Date Type Specialty Providers Description 01/07/2017 Appointment Neurology Paola Flores MD Subj: Appointment [address] [facility] [place] [address] [phone] (Fax) 02/11/2017 Appointment Neurology Paola Flores MD Subj: Appointment Scheduled [address] [place] [address] [phone] (Fax) 11/17/2017 Appointment Nathalia Olson MD Subj: Appointment Scheduled [address] [place] [address] [phone] (Fax) 11/17/2017 Appointment Nathalia Olson MD [address] [place] [address] [phone] (Fax) Subj: Appointment Scheduled Lilliam Gates, JOB PLACEMENT SPECIALIST [address] [place] [address] [phone] (Fax) Health Maintenance Due Date Last Done Comments HCV Screening 1950 Hepatitis B Vaccine (1 of 3 - 1950 Primary Series) Tdap Vaccine 1963 DIABETIC: Microalbumin 1970 Td Vaccine 1970 Pneumococcal Vaccine (1 of 1 1971 - PPSV23) Colonoscopy 2002 Prostate Cancer Screening 2002 Zoster Vaccine 2012 DIABETIC: Foot Exam 12/13/2013 DIABETIC: Retinal Eye Exam 12/13/2013 Influenza Vaccine: Seasonal 03/30/2017 (Season Ended) DIABETIC: Hemoglobin A1C 05/22/2017 11/19/2016, Additional history exists 11/01/2014, 08/02/2014 DIABETIC: Cholesterol 11/19/2017 11/19/2016, Additional history exists 11/01/2014, 08/02/2014 Diabetic: Hdl 11/19/2017 11/19/2016, Additional history exists 11/01/2014, 08/02/2014 Diabetic: Ldl 11/19/2017 11/19/2016, Additional history exists 11/01/2014, 08/02/2014 DIABETIC: Triglycerides 11/19/2017 11/19/2016, Additional history exists 11/01/2014, 08/02/2014 Procedures from Last 3 Months Procedure Name Priority Date/Time Associated Comments Diagnosis ABSTRACTED BY Routine 12/27/2016 8:14 Essential tremor Results for this BILLING STAFF PM CDT procedure are in the results section. ABSTRACTED BY Routine 12/27/2016 6:58 Essential tremor Results for this BILLING STAFF PM CDT procedure are in the results section. STEREOTAXIC DEEP Req for 12/15/2016 8:15 Essential tremor BRAIN STIMULATOR, Additional Time AM CDT VIM THALAMUS (STAGE 1) Case Notes Implant B VIM DBS leads for ET, coil on L HB INJ FOR CYSTOGRAPHY OR Routine 10/13/2016 12:41 Urethral Results for VOIDING PM HOLISTIC SPECIALIST stricture this procedure URETHROCYSTOGRAPHY-URODYN are in the results section. NC COMPLEX CYSTOMETROGRAM Routine 10/13/2016 12:41 Urethral Results for VOIDING PRESSURE STUDIES PM HOLISTIC SPECIALIST stricture this procedure are in the results section. EMG STDS ANAL/URTL SPHNCTR Routine 10/13/2016 12:41 Urethral Results for OTH/THN NDL PM HOLISTIC SPECIALIST stricture this procedure are in the results section. NC VOIDING PRESS STUDY Routine 10/13/2016 12:41 Urethral Results for INTRA-ABDOMINAL VOID PM HOLISTIC SPECIALIST stricture this procedure are in the results section. NC COMPLEX UROFLOWMETRY Routine 10/13/2016 12:41 Urethral Results for PM HOLISTIC SPECIALIST stricture this procedure are in the results section. NC COMPLEX UROFLOWMETRY Routine 10/02/2016 8:59 Urethral Results for AM HOLISTIC SPECIALIST stricture this procedure are in the results section. Results from Last 3 Months NSG OR CASE (12/27/2016 8:14 PM) Ronny Pittman MD 12/27/20168:14 PM Post-Op Procedure Note Operation/Procedure: Procedure(s) (LRB): DEEP BRAIN STIMULATOR GENERATOR IMPLANTATION (STAGE 2) (Left) PREOPERATIVE DIAGNOSIS: Essential tremors, medically refractory POSTOPERATIVE DIAGNOSIS: Essential tremors, medically refractory General Information: Date: 12/24/16 Time: 1018 Location: MAIN OR OR Room: [place] [address] Service: Neurosurgery Log ID: [id number] Surgeon: Surgeon(s) and Role: * Ronny Chapa MD - Primary * Dalton Degroot MD - Resident - Assisting Staff Information: Scrub Nurse: Nalini Shoemaker RN Circulating Nurse: Claudia Geller, [place]; Kanchan Sutton, [place]; Gretchen Nolen RN Heating Technician- Scrub: Lolly Calixto Anesthesia: General Findings: No Unusual Findings Blood Loss: None Implants: Implant Name Type Inv. Item Serial No. Clinical Editor Lot No. LRB No. Used Action EXTENSION ACTIVA 40CM W/O TUNNELER MEDTRONIC 24792-69 - [id number] ACTIVA 40CM W/O TUNNELER [employer]IC 50222-47 [id number] MEDTRONIC_NEUROLOGICLeft 1 Implanted EXTENSION ACTIVA 40CM W/O TUNNELER MEDTRONIC 59766-74 - [id number] ACTIVA 40CM W/O TUNNELER MED[employer]IC 54166-51 [id number] MEDTRONIC_NEUROLOGICLeft 1 Implanted GENERATOR ACTIVA PC DUAL CHANNEL MED[employer]ONIC 13306 - [id number] GENERATOR ACTIVA PC DUAL CHANNEL MED[employer]ONIC 70191 [id number] MEDTRONIC_NEUROLOGICLeft 1 Implanted CONTRACTS SPECIALIST ACTIVA PC PATIENT MED[employer]ONIC 93695 - [id number] CONTRACTS SPECIALIST ACTIVA PC PATIENT MEDTRONIC 79767 [id number] [employer]ONIC_NEUROLOGIC Left 1 Implanted Specimens: * No specimens in log * Complications: None, patient tolerated the procedure well Condition: Stable Operative Report Completion LOCATION: Main OR ATTENDING STAFF SURGEON: Ronny Chapa MD RESIDENT/FELLOW: Dalton Degroot MD PREOPERATIVE DIAGNOSIS: Essential tremors, medically refractory OPERATION/PROCEDURE PERFORMED: Stage 2, Deep Brain Stimulator Implantation, generator on the LEFT POSTOPERATIVE DIAGNOSIS: Essential tremors, medically refractory INDICATIONS: Mr. Hernandez Bhandari is a 66 y.o. male with essential tremors, medically refractory who underwent Stage 1 DBS implantation - electrode placement. Patient indicated for Stage 2, Deep Brain Stimulator Implantation, generator on the LEFT. The patient understands the procedure, its need and the risks, including: Pain, bleeding, infection, stroke, coma, persistent vegetative state, paralysis, neuropraxia, seizures, heart attack, , failure of procedure, inability to do the procedure, and need for additional procedures. PROCEDURE DETAILS: The patient was brought to the main operating room and placed under general endotracheal anesthesia by the Anesthesia Team. The patient was placed on the operative table with head on a horseshoe head rest. The prior rohini hole incisions were identified and the proposed re-incision verified on palpation to have the leads underneath. The proposed incision sites were identified including the LEFT hole incision, an incision medial and above to theear and another incision in the anterior chest wall incision 1 fingerbreadth below the clavicle. Hair was clipped. The prior sutures were removed. Surgical timeout was performed. These sites were cleaned sterilely and infiltrated with local anesthetic, 0.5% Marcaine 1:200,000 epinephrine. The patient was prepped and draped in the usual sterile fashion. The cranial incision was opened bluntly and the prior sutures were removed using forceps. The leads were identified. An incision was then made in the proposed posterior auricular incision with a #10 blade down to the calvarium while maintaining hemostasis and a hemostat was used to create a tunnel for the leads from the rohini hole incision down through the loose connective tissue to the posterior auricular incision. Turning to the anterior chest wall incision, a #10 scalpel blade was used to make a skin incision down to the subcutaneous tissue, above the muscle fascia, and a pocket was then created in the subcutaneous tissues using a pair of scissors. The pocket was irrigated with Bacitracin-containing saline. The extension tunneler was then tunneled from the posterior auricular incision to the anterior chest wall. The extension leads were marked (right lead was marked) and identified and secured to the distal aspect of the lead extension passer and the passer was pulled superiorly. The extensor leads were removed from the tunneler. The leads were passed from the cranial incision down to the posterior auricular incision and connected to the extension leads using plastic boots (the right lead was connected to a white boot, and the left to a transparent boot) and secured with tevdek ties. The leads were gently tucked in the subcutaneous layer at the burrhole and posterior auricular incisions. The incisions were irrigated with bacitracin saline. Vancomycin powder was applied. The prior burrhole incision was closed by reapproximating the galea using 3-0 interrupted Vicryl sutures and the skin was closed with 3-0 nylon suture. The posterior auricular incision was also closed using 3-0 interrupted Vicryl sutures for the galea and the skin was closed with a running 3-0 nylon suture in running manner. At the anterior chest wall incision, the pulse generator and the lead extensions were attached and secured. The generator was then placed into the pocket and secured to the muscle fascia with 2-0 nurolon sutures. Impedance was evaluated and found to be adequate. The subcutaneous tissue was then closed with 2-0 interrupted Vicryl sutures and skin was closed with a running 3-0 nylon suture. There were no immediate complications noted. Blood loss was minimal and all sponge and needle counts were accurate. The patient was extubated and taken to the PACU. Dr. Ronny Chapa was present for the entire procedure. Attending Attestation: I was present for and participated in the entire procedure. MD Ronny Borges MD [facility] [place] [facility] (12/27/2016 6:58 PM) Ronny Pittman MD 12/27/20166:58 PM Post-Op Procedure Note Operation/Procedure: Procedure(s) (LRB): STEREOTAXIC DEEP BRAIN STIMULATOR, VIM THALAMUS (STAGE 1) (Bilateral) PREOPERATIVE DIAGNOSIS: Essential Tremor POSTOPERATIVE DIAGNOSIS: Same. General Information: Date: 12/15/16 Time: 814 Location: MAIN OR OR Room: MAIN OR 19 Service: Neurosurgery Log ID: [id number] Surgeon: Surgeon(s) and Role: * Ronny Chapa MD - Primary * Ashutosh Hernández MD - Resident - Assisting Staff Information: Scrub Nurse: Kanchan Sutton RN; Carmencita Hager RN Circulating Nurse: Candy Swenson RN; Chuyita Chavez RN Anesthesia: Monitored Anesthesia Care Findings: No Unusual Findings Blood Loss: Minimal Implants: Implant Name Type Inv. Item Serial No. Clinical Editor Lot No. LRB No. Used Action LEAD [employer] DEEP BRAIN STIMULATION ELECTRODE KIT #3387-40 - [id number] MED[employer]ONIC DEEP BRAIN STIMULATION ELECTRODE KIT #3387-40MEDTRONIC_NEUROLOGIC [id number] Left 1 Implanted LEAD [employer] DEEP BRAIN STIMULATION ELECTRODE KIT #3387-40 - [id number] LEAD [employer] DEEP BRAIN STIMULATION ELECTRODE KIT #3387-40 [employer]IC_NEUROLOGIC [id number] Right 1 Implanted Specimens: * No specimens in log * Complications: None, patient tolerated the procedure well Condition: Stable Operative Report Completion LOCATION: Main OR #*19. STAFF/ATTENDING SURGEON: Ronny Chapa MD. RESIDENT/VIDEOTAPE RECORDING ENGINEER: Ashutosh Hernández MD PREOPERATIVE DIAGNOSIS: Essential Tremor POSTOPERATIVE DIAGNOSIS: Same. PROCEDURES PERFORMED: 1. Bilateral stereotactic deep brain stimulator lead implantation in the ViM with tunneling of bilateral leads over to the left side. 2. Use of intraoperative fluoroscopy. Indications: Mr. Bhandari is a 66-year-old right-handed male patient presenting with severe right-handed tremors. He describes that the tremors are affecting his quality of life and giving him difficulty taking care of himself, feeding himself as well as doing his activities of daily living and hobbies. The patient understands the procedure, its need and the risks, including: pain, bleeding, infection, stroke, coma, persistent vegetative state, paralysis, neuropraxia, seizures, heart attack, , failure of procedure, inability to do the procedure, and need for additional procedures. PROCEDURE DETAILS: The patient was brought to the Day of Surgery Area where he underwent placement of the CRW ring under local anesthesia. Subsequently, he was taken to the Radiology suite where he underwent a Stealth head CT scan. In the meantime, his preoperative MRI and CT scan were loaded onto the [place] station where they were merged. The coordinates for the ViM nucleus relative to the AC-PC were extrapolated and recorded. Preoperative DBS planning trajectories were made as to avoid cerebral sulci, major blood vessels, lateral ventricles, and the head of the caudate nucleus. The patient was subsequently transferred to the operating room, where hewas placed supine onto the operating table. Appropriate monitoring lines were placed and the pressure points were appropriately padded. his CRW ring was secured onto the operating table using a Clark head of sales. Proposed incisional markings were placed and hair was minimally clipped. A timeout confirmation was performed. Local anesthetic was injected and the area was then prepped and draped in the usual and sterile fashion per protocol using Ioban and sterile drape. Using a #10 blade scalpel, an incision was made starting on the right side down to bone, exposing the underlying cranium. The coronal suture was easily visualized. Self-retaining Paparella retractors were placed. Similarly, an incision was made on the contralateral side. Using a high speed electric drill a perforating 5 bit, a rohini hole was made, exposing the underlying dura. Punch rongeurs were used to undermine the inner table of the skull and increase our exposure. On the left side, a sprinkler inspector was used for rohini hole exposure. The dura was cauterized. The dura was then incised and opened using a #15 blade in a cruciate fashion and the leaflets were cauterized to expose the underlying brain. Plastic Medtronic rohini hole covers were fastened with screws onto the calvarium. As per pre-planned coordinates, the phantom frame was placed along with the microelectrode drive over the sterile field and secured onto the ring. Bipolar cautery and a #11 scalpel blade was used to perform a small linear corticectomy. Cannulae with obturators were placed and tracked along the preplanned trajectory. Subsequently, the obturators were removed and the lead was placed to 5mm above target (25mm). Impedences were titrated up starting at 1V to 5 Volts and pulse width at 90 to 120 microseconds advanced to 27mm on the right and 29mm on the left; transient hand numbess was noted with perioral numbness at higher voltages that also were transient and the patient demonstrated good clinical response with hand opening and closing and mimicking drinking from a glass. A Pac-man circular plastic platform was then secured onto the Stimloc caps. The permanent electrode was marked and fluoroscopy was done to document good placement. The electrode guidewire was then removed the permanent lead was retracted from the cannula and tunneled to the contralateral side. The distal portion was secured with a plastic cap and boot, locked with a torque wrench screw, and secured with Tevdek ties. A smoothe-domed transparent cap was snapped and secured onto the Stimloc rohini hole cover and the area was copiously irrigated with normal saline. Vancomycin powder was applied and self-retaining retractors were removed. In a similar fashion a permanentl lead was placed over the contralateral rohini hole as we sequentially advanced the microelectrode starting at 5 mm above target, all the way down to 29mm. There were no other noted adverse symptoms such as contractions,mood changes, eye deviation, or other ill or adverse effects. Similarly, the distal end of the lead was secured with plastic cap and boot and secured with torque wrench screws. Tevdek ties were placed. Both leads were coiled in a subgaleal pocket on the left side and copious irrigation was applied. Vancomycin powder was applied bilaterally. The galea over both incisions was then approximated using inverted interrupted 3-0 Vicryl sutures. The skin was approximated using a running nylon suture. All final sponge and needle counts were correct x 2. The patient tolerated the procedure well and there were no immediate complications noted.He was transferred to recovery in stable condition. Dr. Chapa scrubbed in the entire procedure. Attending Attestation: I was present for and participated in the entire procedure. MD Ronny Perez MD BLOOD GLUCOSE, BEDSIDE (12/24/2016 12:27 PM)Only the most recent of8 resultswithin the time period is included. Component Value Range Glucose, Accu-Chek 108(H) 65-99 mg/dL Specimen Blood, capillary CT BRAIN WO CONTRAST (02985) (12/19/2016 7:56 PM) Impressions Impression: Expected postoperative changes as above. This final report is in agreement with the critical and emergent preliminary findings reported by the radiology scheduler concrete analyst. Narrative Procedure: CT BRAIN WO CONTRAST (12224) Indication: Recent DBS placement. Hit head today. Evaluate for hemorrhage. Technique: Axial CT of the brain without IV contrast. Sagittal and coronal reformations are also provided for review. Comparison: Brain MR dated 12/14/2016 Findings: No acute hemorrhage or vascular territory ischemic infarct. Interval placement of deep brain stimulator devices, with leads terminating in the bilateral thalami. Small amount of postoperative pneumocephalus and subdural fluid over the prefrontal regions. No evidence of intracranial hemorrhage or significant mass effect. Multifocal white matter hypodensities consistent with chronic ischemic changes. The ventricles, cortical sulci and basal cisterns are symmetric and age appropriate. Normal brainstem and posterior fossa. Postoperative change in the calvarium from brain stimulator placement. Procedure Note Aime, Incoming Imaging Results - Sun Dec 20, 2016 9:44 AM CDT Procedure: CT BRAIN WO CONTRAST ([id number]) Indication: Recent DBS placement. Hit head today. Evaluate for hemorrhage. Technique: Axial CT of the brain without IV contrast. Sagittal and coronal reformations are also provided for review. Comparison: Brain MR dated 12/14/2016 Findings: No acute hemorrhage or vascular territory ischemic infarct. Interval placement of deep brain stimulator devices, with leads terminating in the bilateral thalami. Small amount of postoperative pneumocephalus and subdural fluid over the prefrontal regions. No evidence of intracranial hemorrhage or significant mass effect. Multifocal white matter hypodensities consistent with chronic ischemic changes. The ventricles, cortical sulci and basal cisterns are symmetric and age appropriate. Normal brainstem and posterior fossa. Postoperative change in the calvarium from brain stimulator placement. IMPRESSION Impression: Expected postoperative changes as above. This final report is in agreement with the critical and emergent preliminary findings reported by the radiology scheduler concrete analyst. BASIC METABOLIC PANEL W/ CALCIUM (CHEM 8) (12/16/2016 7:21 AM) Component Value Range Sodium 136 135-145 mEq/L Potassium 4.2 3.5-5.0 mEq/L Chloride 100 95-107 mEq/L CO2 24 22-29 mEq/L BUN 12 10-20 mg/dL Creatinine 0.6Comment: 0.6-1.2 mg/dL Creatinine switched to enzymatic method on 01/06/2011.GFR equation switched to IDMS-traceable MDRD equation on 01/06/2011. Calculated GFR values are not valid in clinical settings where serum creatinine is changing. Glucose 120(H)Comment: 65-99 mg/dL The Expert Committee on the Diagnosis and Classification of Diabetes has defined impaired fasting glucose as greater than or equal to 100 mg/dL but less than 126 mg/dL.(Diabetes Care 28 (Suppl 1)S41,2005) Calcium 8.5 8.5-10.5 mg/dL Anion Gap 12 mEq/L Calculated GFR >90 >60 mL/min/1.73 m2 Specimen Blood MRSA/SA PCR (12/15/2016 2:59 PM)Only the most recent of2 resultswithin the time period is included. Component Value Range MRSA by PCR Negative Negative S. AUREUS by PCR NegativeComment:Negative for SA Negative Specimen Nasal Swab (MRSA) - Nasal Swab Narrative Test methodology:PCR amplification; Xpert SA Test ([employer]) DIFFERENTIAL (12/15/2016 2:52 PM)Only the most recent of2 resultswithin the time period is included. Component Value Range % Neutrophils-Auto Diff 58.5 % Neutrophils-Auto Diff 3880 6977-6294 /MM3 % Lymphocytes-Auto Diff 32.6 % Lymphocytes-Auto Diff 2160 875-3300 /MM3 % Monocytes-Auto Diff 7.1 % Monocytes-Auto Diff 470 130-860 /MM3 % Eosinophils-Auto Diff 0.9 % Eosinophils-Auto Diff 60 40-390 /MM3 % Basophils 0.6 % Basophils-Auto Diff 40 10-136 /MM3 % Immature Granulocytes-Auto Diff 0.3 % Immature Granulocytes-Auto Diff 20 /MM3 Specimen Whole Blood CBC (COMPLETE BLOOD COUNT) (12/15/2016 2:52 PM)Only the most recent of2 resultswithin the time period is included. Component Value Range WBC Count 6.6 3.7-10.5 K/MM3 RBC Count 4.19(L) 4.50-6.20 M/MM3 Hemoglobin 9.7(L) 13.2-17.7 g/dL Hematocrit 32(L) 40-52 % MCV (Mean Corpuscular Volume) 75(L) 82-99 FL MCH (Mean Corpuscular Hemoglobin) 23(L) 25-35 PG MCHC (Mean Corpuscular Hemoglobin Concentration) 31(L) 32-36 % Platelet Count 209 150-400 K/MM3 MPV (Mean Platelet Volume) 9.1(L) 9.4-12.3 FL RBC Dist Width-STD 42.5 35.1-43.9 FL RBC Distrib Width 15.7(H) 9.0-14.5 % Nucleated RBC 0 /100 WBC Specimen Whole Blood CBC WITH DIFFERENTIAL (12/15/2016 2:52 PM)Only the most recent of2 resultswithin the time period is included. Specimen Whole Blood Narrative The following orders were created for panel order CBC WITH DIFFERENTIAL. Procedure Abnormality Status --------- ------ CBC (COMPLETE BLOOD COUNT)[[id number]] AbnormalFinal result DIFFERENTIAL[[id number]] Final result Please view results for these tests on the individual orders. FLUORO C-ARM: LESS THAN ONE HOUR (12/15/2016 11:00 AM)CT STEALTH BRAIN ([id number]) (12/15/2016 7:46 AM)MRI STEALTH WITHOUT CONTRAST ([id number]) (12/14/2016 6:31 PM) Impressions impression: Exam was performed for pretreatment planning. There are no acute findings. Narrative Procedure: MRI STEALTH WITHOUT CONTRAST ([id number]) Indication: Lead implantation of deep brain stimulator. Essential tremor. Technique: Axial SPGR volumetric MRI of the brain performed without IV contrast. Exam is performed for evaluation of deep brain stimulator surgical planning. Comparison: None. Findings/ Procedure Note Aime, Incoming Imaging Results - WedDec 15, 2016 12:22 PM CDT Procedure: MRI STEALTH WITHOUT CONTRAST ([id number]) Indication: Lead implantation of deep brain stimulator. Essential tremor. Technique: Axial SPGR volumetric MRI of the brain performed without IV contrast. Exam is performed for evaluation of deep brain stimulator surgical planning. Comparison: None. Findings/ IMPRESSION impression: Exam was performed for pretreatment planning. There are no acute findings. URINE MICROSCOPIC (11/26/2016 12:24 PM) Component Value Range White Blood Cells, Urine 34(H) 0-5 /HPF Red Blood Cells, Urine 10(H) 0-2 /HPF Squamous Epithelial Cells, Urine 50(H) <=10 /LPF Transitional Epithelial Cells, Urine 3 <=10 /LPF Renal Tubular Cells, Urine 3(H) <1 /LPF Mucous-Urine Rare None, Rare Specimen Urine URINALYSIS (11/26/2016 12:24 PM) Component Value Range Color, Urine Yellow Straw, Pale Yellow, Yellow, Clear, None Clarity, Urine Slightly Cloudy(A) Clear pH, Urine 5.0 <9.0 Glucose, Urine 1+(A) Negative Blood, Urine 2+(A) Negative Ketones, Urine Negative Negative Protein, Urine Negative Negative Urobilinogen, Urine Normal Normal Bilirubin, Urine Negative Negative Leukocyte Esterase, Urine 3+(A) Negative Nitrite, Urine Negative Negative Spec [place], Urine 1.015 1.000-1.030 Specimen Urine GLUCOSE (11/26/2016 12:18 PM)Only the most recent of2 resultswithin the time period is included. Component Value Range Glucose 96Comment: 65-99 mg/dL The Expert Committee on the Diagnosis and Classification of Diabetes has defined impaired fasting glucose as greater than or equal to 100 mg/dL but less than 126 mg/dL.(Diabetes Care 28 (Suppl 1)S41,2005) Specimen Blood CREATININE (11/26/2016 12:18 PM)Only the most recent of2 resultswithin the time period is included. Component Value Range Creatinine 0.6Comment: 0.6-1.2 mg/dL Creatinine switched to enzymatic method on 01/06/2011.GFR equation switched to IDMS-traceable MDRD equation on 01/06/2011. Calculated GFR values are not valid in clinical settings where serum creatinine is changing. Calculated GFR >90 >60 mL/min/1.73 m2 Specimen Blood BLOOD UREA NITROGEN (11/26/2016 12:18 PM) Component Value Range BUN 10 10-20 mg/dL Specimen Blood CO2 (11/26/2016 12:18 PM) Component Value Range CO2 26 22-29 mEq/L Anion Gap 13 8-18 mEq/L Specimen Blood CHLORIDE (11/26/2016 12:18 PM) Component Value Range Chloride 102 95-107 mEq/L Specimen Blood POTASSIUM (11/26/2016 12:18 PM) Component Value Range Potassium 4.4 3.5-5.0 mEq/L Specimen Blood SODIUM (11/26/2016 12:18 PM) Component Value Range Sodium 141 135-145 mEq/L Specimen Blood PTT (PARTIAL THROMBOPLASTIN TIME) (11/26/2016 12:18 PM) Component Value Range PTT 23 22-31 secs Specimen Blood PT/INR (PROTHROMBIN TIME/INR) VENOUS (11/26/2016 12:18 PM) Component Value Range PT (Prothrombin Time) 11 9-12 secs INR 1.0 <4.0 Specimen Blood VITAMIN D, 25-HYDROXY (11/19/2016 1:28 PM) Component Value Range Vitamin D, 25-OH 7(L)Comment: 20-80 ng/mL This assay accurately quantifies the sum of 25-hydroxyvitamin D3 and 25- hydroxyvitamin D2. Endocrine Society, [place] of Medicine (IOM), and World Health Organization (WHO) guidelines designate 25-h ydroxyvitamin D plasma concentrations below 20 ng/mL as deficient, based on increased frequency of adverse outcomes (e.g., osteoporotic fractures). 25-Hydroxyvitamin D reference ranges are a controversial topic, with some authorities suggesting optimal concentrations should be 30 ng/mL or higher based on correlations of 25-hydroxyvitamin D plasma concentrations with physiological parameters such as parathyroid hormone or calcium concentrations. However, optimal 25-hydroxyvitamin D concentrations greater than 20 ng/mL may be considered for specific disease conditions. Vitamin D toxicity is uncommon but may be seen at 25-hydroxyvitamin D concentrations greater than 150 ng/mL. Specimen Blood VITAMIN B12 (11/19/2016 1:28 PM) Component Value Range Vitamin B12 211Comment: 211-946 pg/mL New analytical immunoassay with different reference range instituted 07/25/2013 AT 830AM Normal 211 - 946 pg/mL [id number] - 210 pg/mL Deficient<150pg/mL Specimen Blood VITAMIN B1, WHOLE BLOOD (11/19/2016 1:28 PM) Component Value Range Vitamin B1 (Thiamine) 52(L)Comment: 70-180 nmol/L INTERPRETIVE INFORMATION: Vitamin B1, Whole Blood This assay measures the concentration of thiamine diphosphate (TDP), the primary active form of vitamin B1. Approximately 90 percent of vitamin B1 present in whole blood is TDP. Thiamine and thiamine monophosphate, which comprise the remaining 10 percent, are not measured. Test developed and characteristics determined by [facility]. See Compliance Statement B: [facility] Performed by [facility], [address] [place] [address] [email or web address], Jona Hook MD, Lab. Director Specimen Blood Narrative Specimen Source: Specimen Start Date: [id number] PREALBUMIN (11/19/2016 1:28 PM) Component Value Range Prealbumin 20 18-45 mg/dL Specimen Blood PARATHYROID HORMONE (11/19/2016 1:28 PM) Component Value Range PTH 76.0(H) 10.0-65.0 pg/mL Specimen Blood LIVER PANEL (11/19/2016 1:28 PM) Component Value Range Bilirubin Total 0.2 <=1.2 mg/dL AST 20Comment: 0-40 U/L Adult reference ranges updated on 07/25/13 at 830am ALT 12Comment: 0-41 U/L The upper limit of normal for alanine aminotransferase (ALT) reference ranges for adults is controversial with some authorities recommending limit as low as 30 U/L for males and 19 U/L for females. Th ere is increased incidence of subclinical liver disease (e.g., early steatohepatitis) in patients with ALT values in the range of 31-41 U/L for males and 20-33 U/L for females. ALT values should alway s be interpreted in conjunction with clinical history, physical examination findings, and, if applicable, data from other diagnostic tests. ALP 85 40-129 U/L GGT 14 8-61 U/L Albumin 4.0 3.4-4.8 g/dL Total Protein 7.5 6.0-8.0 g/dL Specimen Blood LIPID PANEL (11/19/2016 1:28 PM) Component Value Range Specimen Type Non-fasting Cholesterol 190Comment: mg/dL Reference Range: Less than 200 mg/dL - desirable 200 - 240 mg/dL - increased risk Above 240 mg/dL - significant risk Triglycerides 89Comment: 0-150 mg/dL Reference Ranges: Normal:<150 mg/dL Borderline-high:150-199 mg/dL High: 200-499 mg/dL Very high: > sp=303 mg/dL HDL Cholesterol 68 >=41 mg/dL LDL - Calculated 104 <=130 mg/dL Non-HDL Cholesterol (Calc) 122 mg/dL Specimen Blood HEMOGLOBIN A1C (11/19/2016 1:28 PM) Component Value Range Hemoglobin A1c 5.9Comment: 4.8-6.0 % Glycemic Control Guidelines: Non-diabetic <6% Goal <7% Therapeutic Action >8% Estimated Average Glucose 123Comment: mg/dL The estimated average glucose (eAG) calculated from the HbA1c changed on 18/04.See Laboratory Bulletins in the Department of Pathology Laboratory Services Handbook for a full discussion.Not e that the new calculated glucose will now be lower.The A1c result is unchanged. Specimen Whole Blood HEMOGLOBIN (11/19/2016 1:28 PM) Component Value Range Hemoglobin 11.5(L) 13.2-17.7 g/dL Specimen Whole Blood FERRITIN (11/19/2016 1:28 PM) Component Value Range Ferritin 12.7(L) 30.0-400.0 ng/mL Specimen Blood CALCIUM (11/19/2016 1:28 PM) Component Value Range Calcium 9.2 8.5-10.5 mg/dL Specimen Blood URODYNAMICS (10/13/2016 12:41 PM) Amber Raygoza MD 10/13/2016 12:41 PM Urology Procedure Note: Urodynamic Test Procedure Date: 10/12/2016 Pre-procedure Diagnosis: Detrusor [id number] Brief History History (document those sections reviewed, i.e., HPI, ROS, Medical, Family, Social): Patient with prior history of anterior urethroplasty. His flow is excellent, but recently had acute fungal (??) cystitis that was treated with diflucan. He is overall doing better since treatment, but strangely, had bilateral hydronephrosis from this that was managed only with ureteral stents (that have since been removed). His CT scan from today shows the following: IMPRESSION Impression: 1. Mild bilateral hydroureter proximally and markedly thickened bladder wall. 2. No hydronephrosis noted. 3. Status post gastric bypass. 4. Mild liver steatosis. Current Meds: flomax Urinalysis Leukos positive Nitrites negative Prot negative Heme positive Urodynamics Performed by: JUAN PABLO LUU Ordered by: AMBER OLSON Procedure(s) performed: CMG voiding trial EMG Uroflow Voiding study - intra-abdominal Cystogram Noninvasive Uroflometry Voided volume:675 ml PVR: 550 ml Maximum flow rate:36 ml/sec Pattern: intermittent Multi-Channel Filling Cystometry Cystometry performed in standing position with initial fill rate 60 ml/min Bladder Sensation First sensation of fillin ml First desire to void:357 ml Strong desire to void:758 ml Cystometric capacity:825 ml Detrusor Pressures and Activity during Filling Detrusor pressure at onset of fillin cm H20 Detrusor pressure at cystometric capacity?20 cm H20 Detrusor contraction: Absent Voiding Cystometry (Pressure-Flow Study) Voided volume:225 ml PVR:600 ml Maximum flow rate:17 ml/sec Opening pressure: 25 cm H20 Pressure at maximum flow:19 cm H20 Pattern: intermittent Abdominal strain: throughout EMG: Urethral sphincter active. RN Comments A 14fr red rubber catheter was used to empty bladder pre and post testing. Urodynamic Summary: Bladder sensation: normal Bladder capacity: increased Detrusor function during filling: normal Bladder compliance during filling: normal Detrusor function during void/leak: underactive Urethral sphincter function during void: normal Bladder emptying: incomplete Vesicoureteral reflux: absent Fluoroscopy: The bladder was filled with Diatrizoate Meglumine Injection [facility] 30% and fluoroscopic imaging revealed elevated bladder capacity. There is no evidence of vesicoureteral reflux in today's study. Post void imaging revealed incomplete bladder emptying. Urodynamic Impression: Post-procedure Diagnosis: Urinary retention R33.9 I have personally viewed the results of the study and provided the above interpretation. FL< 1 HOUR (DONE IN UROLOGY CLINIC) (10/12/2016 11:30 AM)UROFLOW, COMPLEX (10/02 8:59 AM) Narrative Amber Olson MD 10/02/20168:59 AM Urology Clinic Note Encounter Date: 09/30/2016 Subjective: Chief Complaint Chief Complaint Patient presents with Patient Reported Reason For Visit referral from Dr. Aleman, new records to be faxed - stricture ALSO - [address] Olson with uroflow and bvi History of Present Illness: Hernandez Bhandari is a 66 y.o. male from [facility] referred by Dr. Aleman for urethral reconstruction. The patient underwent urethral reconstruction on 03/26/14. The procedure details are as follows: 6 cm proximal penile/distal bulbar urethral stricture. Performed a dorsal inlay of 6x2 cm buccal graft. . The final pathology showed: N/A The pre-operative stricture details were as follows: Stricture length: 6 cm Location of stricture: distal bulbar Etiology of stricture: idiopathic Since the last visit: The patient has not been diagnosed with recurrence of their urethral stricture. The patient notes the strength of the urinary flow, as compared tot he flow he experienced before surgery, to be. The patient notes the strength of the urinary flow, as compared to the flow he experienced immediately after surgery, to be the same. The patient had 1 urinary tract infections since their last visit. The patient does not believe that their urethral stricture has returned. The patient does not have wound complaints. The patient does not have perineal numbness. The patient does not have perineal pain. The patient does not have lower extremity pain. The patient does not have buccal graft site complaints. The patient does have urinary tract infection symptoms. The patient does not have bladder spasms. The patient is not requiring narcotic pain medications. The patient did not take prophylactic antibiotics while the catheter was in place. The patient states their current pain on a scale of 1 to 10 is 0/10. The patients goals for today are as follows: 1) Continue with improved urination 2) Determine origin of bilateral hydro Pertinent Interval Medical Events include: He recently had an episode of difficulty urinating and went to the local [facility] where he was found to have a UTI which grew fungus.He was also found to have bilateral hydroureteronephrosis.He was evaluated by Dr. Aleman who performed a cystoscopy and a retrograde urethrogram and found that the urethra was open but was unsure of the origin of his hydronephrosis.He had stents placed but they were removed approximately 8 days ago.He is currently taking antibiotics for his infection but does not recall what antibiotics he has been taking.Currently he feels as though his urinary stream has greatly improved and is back to baseline.He denies hematuria, dysuria, fever, chills, nausea, or vomiting. Active Problem List with Overview Notes Diagnosis Date Noted Hypertension, essential, benign 03/05/2014 Chronic issue, monitoring Blood pressure, will restart home medications when able. Obstructive sleep apnea 03/05/2014 Obesity hypoventilation syndrome 03/05/2014 Obstructive sleep apnea with need for BiPAP. Monitoring in hospital with spO2 and O2 PRN. Hypercholesterolemia 03/05/2014 On medication Osteoarthrosis, localized, primary, involving lower leg 03/05/2014 Involved joints include hip and knee. On cymbalta Personal history of pulmonary embolism 03/05/20142007 after multiple rib fractures, Urethral stricture 12/13/2013 DMII (diabetes mellitus, type 2) 12/13/2013 Chronic issue, monitoring Blood sugars, on sliding scale to control. S/P below knee amputation 03/04/2012 Past Surgical History Procedure Laterality Date Tibia, fibula, ankle area: amputation leg, through tibia and fibula;03/04/2012 Procedure: AMPUTATION LEG BELOW KNEE;Surgeon: Miriam Shields MD;Location: MAIN OR;Service: Orthopaedics Urethra [id number] Shoulder surgery Left 2005 bone infection Suprapubic catheter~2004 Tonsillectomy Orchidectomy Right 1983 injury Adenoidectomy Orthopedic surgery Colonoscopy Bladder surgery Orchiectomy Urtp transpubic/prnl 1 stg rcnstj/rpr urt N/A 03/26/2014 Procedure: URETHROPLASTY, ADULT BUCCAL MUCOSA;Surgeon: Amber Olson MD;Location: MAIN OR;Service: Urology Exc mucosa vestibule mouth as don grf N/A 03/26/2014 Procedure: CYSTOSCOPY W OR W/O STENT PLACEMENT/REMOVAL; Surgeon: Amber Olson MD;Location: MAIN OR;Service: Urology Family History Problem Relation Age of Onset Heart Disease Father Emphysema Father Diabetes Mother Social History Social History Marital Status: Spouse Name: Vianca Bhandari Number of Children: 2 Years of Education: 12 Occupational History Not on file. Social History Main Topics Smoking status: Former Smoker -- 1.50 packs/day for 27 years Types: Cigarettes, Pipe, Cigars Quit date: 07/28/1997 Smokeless tobacco: Never Used Alcohol Use: No Drug Use: No Sexual Activity: No Other Topics Concern Not on file Social History Narrative Medication List with Changes/Refills Current Medications HYDROMORPHONE 2 MG TABLETTake 1-2 Tabs by mouth 4 times daily as needed (surgical pain). Indications: PAIN METFORMIN (GLUCOPHAGE) 850 MG TABLETTake 850 mg by mouth 2 times daily with meals. NITROFURANTOIN MACROCRYSTAL (MACRODANTIN) 100 MG CAPSULE OXYCODONE-ACETAMINOPHEN 5-325 MG PER TABLETTake 1-2 Tabs by mouth every 6 hours as needed. Do Not exceed 4000 mg of acetaminophen per 24 hours.Indications: PAIN PROPRANOLOL 10 MG TABLETTake 10 mg by mouth daily. SILDENAFIL (VIAGRA) 100 MG TABLETTake 1 Tab (100 mg total) by mouth as needed Take 1 hour prior to sexual activity. SIMVASTATIN 10 MG TABLETTake 10 mg by mouth every evening. TAMSULOSIN 0.4 MG ER CAPSULETake 0.4 mg by mouth at bedtime. URSODIOL 300 MG CAPSULETake 1 Cap by mouth 3 times daily. Indications: CHOLELITHIASIS PREVENTION No Known Allergies Review of Systems: Review of Systems All other systems reviewed and are negative. An 11-point ROS was performed and all were negative except for what is reported in the HPI. Objective: BP 126/78 mmHg | Pulse 91 | Temp(Src) 37.3 C (99.1 F) (Tympanic) | Ht 1.829 m (6') | Wt 95.255 kg (210 lb) | BMI 28.47 kg/m2 Physical Exam Constitutional: He is oriented to person, place, and time and well-developed, well-nourished, and in no distress. Neck: Normal range of motion. Pulmonary/Chest: Effort normal. Abdominal: Soft. Musculoskeletal: Normal range of motion. Neurological: He is alert and oriented to person, place, and time. Skin: Skin is warm and dry. Psychiatric: Affect and judgment normal. Vitals reviewed. Uroflow, complex Supervision type: Direct Data Review: Results for orders placed or performed in visit on 09/30/16 UROFLOW, POINT OF CARE Result Value Ref Range VOLUME 339 ml FLOW TIME38.8 s QMAX 23.7 ml/s QMEAN 8.8 ml/s TQMAX 3.0 s TOTAL TIME 45.0 s Results for orders placed or performed in visit on 03/12/15 UROFLOW, POINT OF CARE Result Value Ref Range TOTAL TIME 24.7 s FLOW TIME26 s TQMAX 7.0 s QMAX 26.7 ml/s QMEAN 14.3 ml/s VOLUME 370 ml Results for orders placed or performed in visit on 06/22/14 UROFLOW, POINT OF CARE Result Value Ref Range TOTAL TIME 45.3 s FLOW TIME39.3 s TQMAX 1.0 s QMAX 19.4 ml/s QMEAN 6.0 ml/s VOLUME 235 ml Results for orders placed or performed in visit on 09/30/16 POST-VOID RESIDUAL (BVI), POINT OF CARE Result Value Ref Range VOLUME 339 ml POST-VOID RESIDUAL 180 ml Results for orders placed or performed in visit on 03/12/15 POST-VOID RESIDUAL (BVI), POINT OF CARE Result Value Ref Range VOLUMEml POST-VOID RESIDUAL 195 ml Results for orders placed or performed in visit on 06/22/14 POST-VOID RESIDUAL (BVI), POINT OF CARE Result Value Ref Range VOLUMEml POST-VOID RESIDUAL 132 ml Recent Results (from the past 24 hour(s)) POST-VOID RESIDUAL (BVI), POINT OF CARE Result Value Ref Range VOLUME 339 ml POST-VOID RESIDUAL 180 ml UROFLOW, POINT OF CARE Result Value Ref Range VOLUME 339 ml FLOW TIME38.8 s QMAX 23.7 ml/s QMEAN 8.8 ml/s TQMAX 3.0 s TOTAL TIME 45.0 s URINALYSIS, POINT OF CARE Result Value Ref Range LEUKOCYTE MODERATE Trace - Large NITRITE NEGATIVE Negative - Positive UROBILINOGEN 0.2 Normal 0.2 - 1-8 mg/dl PROTEIN 100 Negative - 30-300 mg/dl PH 6.0 5.0-6.0 - 7.0-9.0 BLOOD LARGE Negative - Sm+ - lg+++ SPECIFIC GRAVITY 1.020 1.020-1.030 - 1.005-1.015 KETONES NEGATIVE Negative - 5(tr) - 80(lg) mg/dl BILIRUBIN NEGATIVE Negative - Sm+ - lg+++ GLUCOSE NEGATIVE Negative - 100 tr - 1000 mg/dl WHITE BLOOD CELL (WBC), URINE0 - 2 cells/HPF RED BLOOD CELL (RBC), URINE0 - 2 cells/HPF BACTERIA-URINENegative - Negative CASTNegative - Negative OTHER MICROSCOPIC FINDINGS CREATININE Result Value Ref Range Creatinine 0.7 0.6-1.2 mg/dL Calculated GFR >90 >60 mL/min/1.73 m2 IRL RADIOLOGY CREATININE, POINT OF CARE Result Value Ref Range IRL Radiology Creatinine, Point of Care 0.6 0.6-1.2 mg/dL Calculated GFR >90 >60 mL/min/1.73 m2 Recent Results (from the past 168 hour(s)) -CT ABDOMEN & PELVIS W CONTRAST ([id number]) Narrative Procedure: CT ABDOMEN & PELVIS W CONTRAST ([id number]) Clinical Indication: History of bilateral hydronephrosis with stents recently removed Technique: CT exam of the abdomen and pelvis is performed following the uneventful administration of 96 cc Isovue-370 IV contrast. Comparison: None. Findings: Lower chest: The visualized lung bases are clear. Liver: Diffuse steatosis. Bile ducts: Not dilated. Gallbladder: Normal. Pancreas: Normal Spleen: Normal Adrenal glands: Normal Kidneys: Mild bilateral renal scarring. No hydronephrosis. Ureters: Proximal bilateral hydroureter Bladder: Markedly thickened and irregular bladder wall especially the left side. Aorta: Normal Retroperitoneum: No lymphadenopathy. Peritoneum: No ascites. Mesentery: Normal Stomach: Status post gastric surgery for bypass with excluded portion of the lumen Small bowel: Not distended. Colon: Mildly distended, redundant sigmoid colon Appendix: No pathology identified Extraperitoneal pelvis: No lymphadenopathy. Prostate: Mildly enlarged Abdominal wall: Intact Bones: No acute fracture or destructive bone lesion. Mild to moderate degenerative disc disease multilevel Impression Impression: 1. Mild bilateral hydroureter proximally and markedly thickened bladder wall. 2. No hydronephrosis noted. 3. Status post gastric bypass. 4. Mild liver steatosis. Assessment and Plan: Mr. Hernandez Bhandari is a 66 y.o. male now status post bulbar urethral urethroplasty. Mr. Hernandez Bhandari is a 66 y.o. male now status post anterior urethroplasty. Patient has no evidence of anatomic recurrence today. Patient has no evidence of functional recurrence today. Patient is satisfied with the outcome of the operation. Plan: Surgical intervention is not required. Discussed the bladder wall thickness that is markedly present and difficult to know why there is bilateral hydroureter.Will plan on obtaining UDS to determine if there is an obstructive component.UA + Micro today showed a tremendous amount RBC's and WBC's.He likely has a continued infection but will wait for urine culture to determine appropriate treatment. RTC in 2-4 weeks with UDS Staff Physician Comments Staff Involved Staff and PA/JOB PLACEMENT SPECIALIST/PNP/NM (team effort NPP & Faculty documentation) Staff Physician Statement I have discussed the case with the non-physician provider and have personally documented the History, Physical Exam, and Assessment and Plan in the Staff Physician Note section as noted below. Staff Physician Note History (document those sections reviewed, i.e., HPI, ROS, Medical, Family, Social): Patient with prior history of anterior urethroplasty. His flow is excellent, but recently had acute fungal (??) cystitis that was treated with diflucan. He is overall doing better since treatment, but strangely, had bilateral hydronephrosis from this that was managed only with ureteral stents (that have since been removed). His CT scan from today shows the following: IMPRESSION Impression: 1. Mild bilateral hydroureter proximally and markedly thickened bladder wall. 2. No hydronephrosis noted. 3. Status post gastric bypass. 4. Mild liver steatosis. Physical Exam: NAD I personally reviewed the Uroflow which showed: Max flow of 23.7 mL/sec. Good voiding curve Amber Olson MD, MS Supervisor Taping Department of Urology Assessment: S/p anterior urethroplasty with acute cystitis and abnormal thickening of his bladder wall with bilateral hydro of unclear etiology Plan: - will do UDS in coming weeks - I feel he may require either 1) intravesical treatment of antifungal and/or 2) repeat bladder biopsy. This may all be infectious, but the etiology is strange. - f/u after UDS Amber Olson MD, MS Supervisor Taping Department of Urology MIHAI Fiore Research data/Patient Reported Questionnaire Data: URINE CULTURE, ROUTINE AEROBIC (09/30/2016 10:30 AM) Component Value Range Quantitative Culture No growth at 08/999 dilution Specimen Culture - Urine, Midstream clean catch CT ABDOMEN& PELVIS W CONTRAST ([id number]) (09/30/2016 10:16 AM) Impressions Impression: 1. Mild bilateral hydroureter proximally and markedly thickened bladder wall. 2. No hydronephrosis noted. 3. Status post gastric bypass. 4. Mild liver steatosis. Narrative Procedure: CT ABDOMEN & PELVIS W CONTRAST ([id number]) Clinical Indication: History of bilateral hydronephrosis with stents recently removed Technique: CT exam of the abdomen and pelvis is performed following the uneventful administration of 96 cc Isovue-370 IV contrast. Comparison: None. Findings: Lower chest: The visualized lung bases are clear. Liver: Diffuse steatosis. Bile ducts: Not dilated. Gallbladder: Normal. Pancreas: Normal Spleen: Normal Adrenal glands: Normal Kidneys: Mild bilateral renal scarring. No hydronephrosis. Ureters: Proximal bilateral hydroureter Bladder: Markedly thickened and irregular bladder wall especially the left side. Aorta: Normal Retroperitoneum: No lymphadenopathy. Peritoneum: No ascites. Mesentery: Normal Stomach: Status post gastric surgery for bypass with excluded portion of the lumen Small bowel: Not distended. Colon: Mildly distended, redundant sigmoid colon Appendix: No pathology identified Extraperitoneal pelvis: No lymphadenopathy. Prostate: Mildly enlarged Abdominal wall: Intact Bones: No acute fracture or destructive bone lesion. Mild to moderate degenerative disc disease multilevel Procedure Note Aime, Incoming Imaging Results - WedSep 30, 2016 1:05 PM HOLISTIC SPECIALIST Procedure: CT ABDOMEN & PELVIS W CONTRAST ([id number]) Clinical Indication: History of bilateral hydronephrosis with stents recently removed Technique: CT exam of the abdomen and pelvis is performed following the uneventful administration of 96 cc Isovue-370 IV contrast. Comparison: None. Findings: Lower chest: The visualized lung bases are clear. Liver: Diffuse steatosis. Bile ducts: Not dilated. Gallbladder: Normal. Pancreas: Normal Spleen: Normal Adrenal glands: Normal Kidneys: Mild bilateral renal scarring. No hydronephrosis. Ureters: Proximal bilateral hydroureter Bladder: Markedly thickened and irregular bladder wall especially the left side. Aorta: Normal Retroperitoneum: No lymphadenopathy. Peritoneum: No ascites. Mesentery: Normal Stomach: Status post gastric surgery for bypass with excluded portion of the lumen Small bowel: Not distended. Colon: Mildly distended, redundant sigmoid colon Appendix: No pathology identified Extraperitoneal pelvis: No lymphadenopathy. Prostate: Mildly enlarged Abdominal wall: Intact Bones: No acute fracture or destructive bone lesion. Mild to moderate degenerative disc disease multilevel IMPRESSION Impression: 1. Mild bilateral hydroureter proximally and markedly thickened bladder wall. 2. No hydronephrosis noted. 3. Status post gastric bypass. 4. Mild liver steatosis. IRL RADIOLOGY CREATININE, POINT OF CARE (09/30/2016 9:35 AM) Component Value Range IRL Radiology Creatinine, Point of Care 0.6 0.6-1.2 mg/dL Calculated GFR >90 >60 mL/min/1.73 m2 Specimen Blood UROFLOW, POINT OF CARE (09/30/2016) Component Value Range VOLUME 339 ml FLOW TIME 38.8 s QMAX 23.7 ml/s QMEAN 8.8 ml/s TQMAX 3.0 s TOTAL TIME 45.0 s POST-VOID RESIDUAL (BVI), POINT OF CARE (09/30/2016) Component Value Range VOLUME 339 ml POST-VOID RESIDUAL 180 ml
--- OUTSIDE RECORDS SUMMARY | 2016-12-28 15:40 | XMS REPORT | Summary of Care ---
:1950 Author Organization [facility] Address [address] [place] [address] Care Team Providers Name Role Phone Carlos Luo Primary Care Physician Encounter Date(s): 09/21/16 - 09/21/16 [facility], [address] [place], [place] [address] Discharge Diagnosis: Kisha UTI Discharge Diagnosis: HOWARD (acute kidney injury) Discharge Disposition: Discharged to Home or Self Care Attending Physician: Micheal Deal MD Referring Physician: Jovan Hamlin MD Vital Signs Most recent to oldest [Reference Range]: 1 Temperature Tympanic [36.6-38.1 DegC] 37.1 DegC (09/21/16 9:50 AM) Temperature C to F 98.8 (09/21/16 9:50 AM) Peripheral Pulse Rate [60-100 bpm] 76 bpm (09/21/16 9:50 AM) SpO2 97 % (09/21/16 9:50 AM) SpO2 Location Right hand (09/21/16 9:50 AM) Blood Pressure [90-130/60-90 mmHg] 128/67mmHg (09/21/16 9:50 AM) Mean Arterial Pressure, Cuff 87 mmHg (09/21/16 9:50 AM) Height/Length Measured 184 cm (09/21/16 9:50 AM) Weight Dosing 96.20 kg1 (09/21/16 9:53 AM) Weight Measured 96.2 kg (09/21/16 9:50 AM) BSA Measured 2.19 m2 (09/21/16 9:50 AM) Body Mass Index Measured 28.41 kg/m2 (09/21/16 9:50 AM) 1Result Comment: This result was because the dosing weight was either not entered or it is>30 days old. This result is based off: Weight Measured September 21, 2016 09:50:00 PARENTING SKILLS INSTRUCTOR by Amber Montilla Problem List Condition Effective Dates Status Health Status Informant Fungus present in urine(Confirmed) Active Hematospermia(Confirmed) Active Other hydronephrosis(Confirmed) Active Encounter for screening for malignant Active neoplasm of prostate(Confirmed) Other urethral stricture(Confirmed) Active Allergies, Adverse Reactions, Alerts No Known Medication Allergies Medications Diflucan 150 mg oral tablet 1 tab(s), Oral, Daily, start this prescription ., # 3 tab(s), 0 Refill( s), Start Date: 09/10/16 13:41:00 PARENTING SKILLS INSTRUCTOR, [facility] [place] Start Date: 09/10/16 Stop Date: 09/13/16 Status: OrderedDiflucan 150 mg oral tablet 1 tab(s), Oral, Daily, START ON WednesdayMARCH 23, # 3 tab(s), 0 Refill(s), Start Date: 02/18/16 11:09:00 CDT, [facility] [facility] [place] Start Date: 02/18/16 Stop Date: 09/04/16 Status: DiscontinuedDiflucan 150 mg oral tablet 1 tab(s), Oral, Daily, # 7 tab(s), 0 Refill(s), Start Date: 09/08/16 11:19:00 PARENTING SKILLS INSTRUCTOR, [facility] [place] Start Date: 09/08/16 Stop Date: 09/21/16 Status: CompletedDiflucan 150 mg oral tablet 1 tab(s), Oral, Daily, # 3 tab(s), 0 Refill(s), Start Date: 09/04/16 17:56:00 PARENTING SKILLS INSTRUCTOR, [facility] [place] Start Date: 09/04/16 Stop Date: 09/21/16 Status: CompletedDitropan 5 mg oral tablet 1 tab(s), Oral, q12hr, PRN bladder spasm, cramping, severe stent pain, # 30 tab( s), 1 Refill(s), Start Date: 09/04/16 17:57:00 PARENTING SKILLS INSTRUCTOR, [facility]acy: [facility] [place], [place] Start Date: 09/04/16 Status: OrderedHYDROcodone-acetaminophen 5mg-325mg oral tablet 1 tab(s), Oral, q6hr, # 30 tab(s), 0 Refill(s), Start Date: 09/04/16 17:57:00 PARENTING SKILLS INSTRUCTOR, [facility]: [facility] [place] [place] Start Date: 09/04/16 Status: OrderedmetFORMIN 850 mg oral tablet 1 tab(s), Oral, BID, # 180 tab(s), 0 Refill(s), Start Date: 09/04/16 15:25:00 PARENTING SKILLS INSTRUCTOR Start Date: 09/04/16 Status: OrderedMiraLax oral powder for reconstitution 17 gm=, Oral, Daily, # 527 gm, 0 Refill(s), Start Date: 09/04/16 17:57:00 PARENTING SKILLS INSTRUCTOR, [facility]acy: [facility] [place] [place] Start Date: 09/04/16 Status: Orderednitrofurantoin macrocrystals 100 mg oral capsule 1 cap(s), Oral, BID, Start this prescription and complete, # 28 cap(s ), 0 Refill(s), Start Date: 09/10/16 13:41:00 PARENTING SKILLS INSTRUCTOR, [facility]acy: [facility] [place] [place] Start Date: 09/10/16 Stop Date: 09/24/16 Status: Orderednitrofurantoin macrocrystals 100 mg oral capsule 1 cap(s), Oral, Daily, Start this prescription after you've completed the 14 day treatment course, # 30 cap(s), 11 Refill(s), Start Date: 09/10/16 13:41:00 PARENTING SKILLS INSTRUCTOR, [facility]acy: [facility] [place] [place] Start Date: 09/10/16 Status: OrderedoxyCODONE-acetaminophen 5mg-325mg oral tablet 1 tab(s), Oral, q6hr interval, 0 Refill(s), Start Date: 09/04/16 15:25:00 PARENTING SKILLS INSTRUCTOR Start Date: 09/04/16 Status: Orderedprimidone 50 mg oral tablet 1 tab(s), Oral, TID, # 90 tab(s), 0 Refill(s), Start Date: 09/21/16 9:49:00 PARENTING SKILLS INSTRUCTOR Start Date: 09/21/16 Status: Orderedpropranolol 10 mg oral tablet 1 tab(s), Oral, TID, # 90 tab(s), 0 Refill(s), Start Date: 09/04/16 15:25:00 PARENTING SKILLS INSTRUCTOR Start Date: 09/04/16 Status: Orderedsulfamethoxazole-trimethoprim 400 mg-80 mg oral tablet 2 tab(s), Oral, Daily, Take twice a day for 7 days then daily until completed, # 30 tab(s), 0 Refill(s), Start Date: 09/04/16 17:57:00 PARENTING SKILLS INSTRUCTOR, [facility]acy: [facility] [place] [place] Start Date: 09/04/16 Stop Date: 09/21/16 Status: Completedsulfamethoxazole-trimethoprim 800 mg-160 mg oral tablet 0 Refill(s), Start Date: 09/04/16 15:24:00 PARENTING SKILLS INSTRUCTOR Start Date: 09/04/16 Stop Date: 09/04/16 Status: Discontinuedtamsulosin 0.4 mg oral capsule 1 cap(s), Oral, HS, # 30 cap(s), 6 Refill(s), Start Date: 01/01/15 15:15:00 CDT , [facility]acy: [facility] [place] [place] Start Date: 01/01/15 Stop Date: 08/07/15 Status: Completedtamsulosin 0.4 mg oral capsule 1 cap(s), Oral, HS, # 30 cap(s), 11 Refill(s), Start Date: 12/08/13 14:23:00 CDT , [facility]acy: [facility] [place], [place] Start Date: 12/08/13 Stop Date: 01/01/15 Status: Completedtamsulosin 0.4 mg oral capsule 1 cap(s), Oral, HS, # 30 cap(s), 11 Refill(s), Start Date: 08/07/15 12:22:23 PARENTING SKILLS INSTRUCTOR , [facility]acy: [facility] [place], [place] Start Date: 08/07/15 Stop Date: 08/11/16 Status: Completedtamsulosin 0.4 mg oral capsule 1 cap(s), Oral, HS, # 30 cap(s), 11 Refill(s), Start Date: 08/11/16 10:56:09 PARENTING SKILLS INSTRUCTOR , [facility]acy: [facility], [place] Start Date: 08/11/16 Status: Ordered Results No data available for this section Immunizations No data available for this section Procedures Procedure Date Related Diagnosis Body Site Cystoscopy - SN (Bilateral)1 09/04/16 Amputation2 Foot3 Shoulder4 Skin5 Urethral6 1auto-populated from documented surgical [id number] lower fwe5Liael bdkw8bzny shoulder euokqbp3ahpi dsqkx0miqzbng dilation Social History No data available for this section Assessment and Plan No data available for this section
--- OUTSIDE RECORDS SUMMARY | 2016-12-28 15:40 | XMS REPORT | Summary of Care ---
:1950 Author Organization [facility] Address [address] [place] [address] Care Team Providers Name Role Phone Carlos Luo Demetria Primary Care Physician Encounter Date(s): [facility]16[facility] [address] [place], [place] [address] Discharge Disposition: Discharged to Home or Self Care Attending Physician: Jovan Hamlin MD Referring Physician: Jovan Hamlin MD Vital Signs Most recent to oldest [Reference Range]: 1 Temperature Temporal Artery [36.0-38.0 DegC] 37.2 DegC (10/16/16 3:34 PM) Peripheral Pulse Rate [60-100 bpm] 63 bpm (10/16/16 3:34 PM) Blood Pressure [90-130/60-90 mmHg] 115/58mmHg (10/16/16 3:34 PM) Mean Arterial Pressure, Cuff 77 mmHg (10/16/16 3:34 PM) Most recent to oldest [Reference Range]: 1 Weight Dosing 90.7 kg (10/16/16 3:34 PM) Weight Measured 90.7 kg (10/16/16 3:34 PM) Problem List Condition Effective Dates Status Health Status Informant Fungus present in urine(Confirmed) Active Other hydronephrosis(Confirmed) Active Encounter for screening for malignant Active neoplasm of prostate(Confirmed) Other urethral stricture(Confirmed) Active Allergies, Adverse Reactions, Alerts No Known Medication Allergies Medications Diflucan 150 mg oral tablet 1 tab(s), Oral, Daily, start this prescription ., # 3 tab(s), 0 Refill( s), Start Date: 09/10/16 13:41:00 BUSINESS DEPARTMENT CHAIR, [facility] [place] Special Instructions: start this prescription . Start Date: 09/10/16 Stop Date: 10/07/16 Status: DiscontinuedDiflucan 150 mg oral tablet 1 tab(s), Oral, Daily, START ON WednesdayMARCH 23, # 3 tab(s), 0 Refill(s), Start Date: 02/18/16 11:09:00 CDT, [facility] [facility] [place] Special Instructions: START ON WednesdayMARCH 23 Start Date: 02/18/16 Stop Date: 09/04/16 Status: DiscontinuedDiflucan 150 mg oral tablet 1 tab(s), Oral, Daily, # 7 tab(s), 0 Refill(s), Start Date: 09/08/16 11:19:00 BUSINESS DEPARTMENT CHAIR, [facility] [place] Start Date: 09/08/16 Stop Date: 09/21/16 Status: CompletedDiflucan 150 mg oral tablet 1 tab(s), Oral, Daily, # 3 tab(s), 0 Refill(s), Start Date: 09/04/16 17:56:00 BUSINESS DEPARTMENT CHAIR, [facility]acy: [facility] [place] [place] Start Date: 09/04/16 Stop Date: 09/21/16 Status: CompletedDitropan 5 mg oral tablet 1 tab(s), Oral, q12hr, PRN bladder spasm, cramping, severe stent pain, # 30 tab( s), 1 Refill(s), Start Date: 09/04/16 17:57:00 BUSINESS DEPARTMENT CHAIR, [facility] Start Date: 09/04/16 Status: Orderedfluconazole 200 mg oral tablet 2 tab(s), Oral, Daily, # 28 tab(s), 0 Refill(s), Start Date: 10/07/16 9:54:00 BUSINESS DEPARTMENT CHAIR, [facility] Start Date: 10/07/16 Stop Date: 10/21/16 Status: OrderedHYDROcodone-acetaminophen 5mg-325mg oral tablet 1 tab(s), Oral, q6hr, # 30 tab(s), 0 Refill(s), Start Date: 09/04/16 17:57:00 BUSINESS DEPARTMENT CHAIR, [facility]acy: [facility] [place] [place] Start Date: 09/04/16 Status: OrderedmetFORMIN 850 mg oral tablet 1 tab(s), Oral, BID, # 180 tab(s), 0 Refill(s), Start Date: 09/04/16 15:25:00 BUSINESS DEPARTMENT CHAIR Start Date: 09/04/16 Status: OrderedMiraLax oral powder for reconstitution 17 gm=, Oral, Daily, # 527 gm, 11 Refill(s), Start Date: 10/05/16 8:44:31 BUSINESS DEPARTMENT CHAIR, [facility]acy: [facility] [place] [place] Start Date: 10/05/16 Status: OrderedMiraLax oral powder for reconstitution 17 gm=, Oral, Daily, # 527 gm, 0 Refill(s), Start Date: 09/04/16 17:57:00 BUSINESS DEPARTMENT CHAIR, [facility]acy: [facility] [place] [place] Start Date: 09/04/16 Stop Date: 10/05/16 Status: Completednitrofurantoin macrocrystals 100 mg oral capsule 1 cap(s), Oral, BID, Start this prescription and complete, # 28 cap(s ), 0 Refill(s), Start Date: 09/10/16 13:41:00 BUSINESS DEPARTMENT CHAIR, [facility]: [facility] [place], [place] Special Instructions: Start this prescription and complete Start Date: 09/10/16 Stop Date: 10/07/16 Status: Discontinuednitrofurantoin macrocrystals 100 mg oral capsule 1 cap(s), Oral, Daily, Start this prescription after you've completed the 14 day treatment course, # 30 cap(s), 11 Refill(s), Start Date: 09/10/16 13:41:00 BUSINESS DEPARTMENT CHAIR, [facility]acy: [facility] [place] [place] Special Instructions: Start this prescription after you've completed the 14 day treatment course Start Date: 09/10/16 Stop Date: 10/07/16 Status: DiscontinuedoxyCODONE-acetaminophen 5mg-325mg oral tablet 1 tab(s), Oral, q6hr interval, 0 Refill(s), Start Date: 09/04/16 15:25:00 BUSINESS DEPARTMENT CHAIR Start Date: 09/04/16 Status: Orderedprimidone 50 mg oral tablet 1 tab(s), Oral, TID, # 90 tab(s), 0 Refill(s), Start Date: 09/21/16 9:49:00 BUSINESS DEPARTMENT CHAIR Start Date: 09/21/16 Status: Orderedpropranolol 10 mg oral tablet 1 tab(s), Oral, TID, # 90 tab(s), 0 Refill(s), Start Date: 09/04/16 15:25:00 BUSINESS DEPARTMENT CHAIR Start Date: 09/04/16 Status: Orderedsulfamethoxazole-trimethoprim 400 mg-80 mg oral tablet 2 tab(s), Oral, Daily, Take twice a day for 7 days then daily until completed, # 30 tab(s), 0 Refill(s), Start Date: 09/04/16 17:57:00 BUSINESS DEPARTMENT CHAIR, [facility] [place] [place] Special Instructions: Take twice a day for 7 days then daily until completed Start Date: 09/04/16 Stop Date: 09/21/16 Status: Completedsulfamethoxazole-trimethoprim 800 mg-160 mg oral tablet 0 Refill(s), Start Date: 09/04/16 15:24:00 BUSINESS DEPARTMENT CHAIR Start Date: 09/04/16 Stop Date: 09/04/16 Status: Discontinuedtamsulosin 0.4 mg oral capsule 1 cap(s), Oral, HS, # 30 cap(s), 6 Refill(s), Start Date: 01/01/15 15:15:00 CDT , [facility]acy: [facility] [place], [place] Start Date: 01/01/15 Stop Date: 08/07/15 Status: Completedtamsulosin 0.4 mg oral capsule 1 cap(s), Oral, HS, # 30 cap(s), 11 Refill(s), Start Date: 12/08/13 14:23:00 CDT , [facility]acy: [facility] [place], [place] Start Date: 12/08/13 Stop Date: 01/01/15 Status: Completedtamsulosin 0.4 mg oral capsule 1 cap(s), Oral, HS, # 30 cap(s), 11 Refill(s), Start Date: 08/07/15 12:22:23 BUSINESS DEPARTMENT CHAIR , [facility]acy: [facility] [place] [place] Start Date: 08/07/15 Stop Date: 08/11/16 Status: Completedtamsulosin 0.4 mg oral capsule 1 cap(s), Oral, HS, # 30 cap(s), 11 Refill(s), Start Date: 08/11/16 10:56:09 BUSINESS DEPARTMENT CHAIR , [facility]acy: [facility] [place], [place] Start Date: 08/11/16 Status: Ordered Results No data available for this section Immunizations No data available for this section Procedures Procedure Date Related Diagnosis Body Site Cystoscopy - SN (Bilateral)1 09/22/16 Cystoscopy - SN (Bilateral)2 09/04/16 Amputation3 Foot4 Shoulder5 Skin6 Urethral7 1auto-populated from documented surgical [id number] from documented surgical ytqu3Gurpn lower kca7Ucywm fvsb3ncig shoulder blpainu1hinx upbim6syhrddl dilation Social History No data available for this section Assessment and Plan No data available for this section
--- OUTSIDE RECORDS SUMMARY | 2016-12-28 15:40 | XMS REPORT | Summary of Care ---
:1950 Author Organization [facility] Address [address] [place] [address] Care Team Providers Name Role Phone Carlos Luo Demetria Primary Care Physician Encounter Date(s): [facility]/15/16 [facility] [address] [place], [place] [address] Discharge Disposition: Discharged to Home or Self Care Attending Physician: Jovan Hamlin MD Referring Physician: Jovan Hamlin MD Vital Signs Most recent to oldest [Reference Range]: 1 Temperature Temporal Artery [36.0-38.0 DegC] 36.5 DegC (10/15/16 9:18 AM) Peripheral Pulse Rate [60-100 bpm] 61 bpm (10/15/16 9:18 AM) Blood Pressure [90-130/60-90 mmHg] 150/82mmHg *HI* (10/15/16 9:18 AM) Mean Arterial Pressure, Cuff 105 mmHg (10/15/16 9:18 AM) Most recent to oldest [Reference Range]: 1 Height/Length Measured 184 cm (10/15/16 9:18 AM) Weight Dosing 95.6 kg (10/15/16 9:18 AM) Problem List Condition Effective Dates Status Health Status Informant 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 Start Date: 09/10/16 Stop Date: 10/07/16 Status: DiscontinuedDiflucan 150 mg oral tablet 1 tab(s), Oral, Daily, START ON WednesdayMARCH 23, # 3 tab(s), 0 Refill(s), Start Date: 02/18/16 11:09:00 CDT, [place] [facility] [place] Special Instructions: START ON WednesdayMARCH 23 Start Date: 02/18/16 Stop Date: 09/04/16 Status: DiscontinuedDiflucan 150 mg oral tablet 1 tab(s), Oral, Daily, # 7 tab(s), 0 Refill(s), Start Date: 09/08/16 11:19:00 PERMIT REVIEW ASSISTANT, [facility] [facility] [place] Start Date: 09/08/16 Stop Date: 09/21/16 Status: CompletedDiflucan 150 mg oral tablet 1 tab(s), Oral, Daily, # 3 tab(s), 0 Refill(s), Start Date: 09/04/16 17:56:00 PERMIT REVIEW ASSISTANT, [facility] [facility] [place] Start Date: 09/04/16 Stop Date: 09/21/16 Status: CompletedDitropan 5 mg oral tablet 1 tab(s), Oral, q12hr, PRN bladder spasm, cramping, severe stent pain, # 30 tab( s), 1 Refill(s), Start Date: 09/04/16 17:57:00 PERMIT REVIEW ASSISTANT, [place] [facility] [place] Start Date: 09/04/16 Status: Orderedfluconazole 200 mg oral tablet 2 tab(s), Oral, Daily, # 28 tab(s), 0 Refill(s), Start Date: 10/07/16 9:54:00 PERMIT REVIEW ASSISTANT, [facility] [facility] [place] Start Date: 10/07/16 Stop Date: 10/21/16 Status: OrderedHYDROcodone-acetaminophen 5mg-325mg oral tablet 1 tab(s), Oral, q6hr, # 30 tab(s), 0 Refill(s), Start Date: 09/04/16 17:57:00 PERMIT REVIEW ASSISTANT, Pharmacy: [facility] [place] [place] Start Date: 09/04/16 Status: OrderedmetFORMIN 850 mg oral tablet 1 tab(s), Oral, BID, # 180 tab(s), 0 Refill(s), Start Date: 09/04/16 15:25:00 PERMIT REVIEW ASSISTANT Start Date: 09/04/16 Status: OrderedMiraLax oral powder for reconstitution 17 gm=, Oral, Daily, # 527 gm, 11 Refill(s), Start Date: 10/05/16 8:44:31 PERMIT REVIEW ASSISTANT, Pharmacy: [facility] [place] [place] Start Date: 10/05/16 Status: OrderedMiraLax oral powder for reconstitution 17 gm=, Oral, Daily, # 527 gm, 0 Refill(s), Start Date: 09/04/16 17:57:00 PERMIT REVIEW ASSISTANT, Pharmacy: [facility] [place] [place] Start Date: 09/04/16 Stop Date: 10/05/16 Status: Completednitrofurantoin macrocrystals 100 mg oral capsule 1 cap(s), Oral, BID, Start this prescription and complete, # 28 cap(s ), 0 Refill(s), Start Date: 09/10/16 13:41:00 PERMIT REVIEW ASSISTANT, Pharmacy: [facility] [place] [place] Special Instructions: Start this prescription and complete Start Date: 09/10/16 Stop Date: 10/07/16 Status: Discontinuednitrofurantoin macrocrystals 100 mg oral capsule 1 cap(s), Oral, Daily, Start this prescription after you've completed the 14 day treatment course, # 30 cap(s), 11 Refill(s), Start Date: 09/10/16 13:41:00 PERMIT REVIEW ASSISTANT, Pharmacy: [facility] [place] [place] Special Instructions: Start this prescription after you've completed the 14 day treatment course Start Date: 09/10/16 Stop Date: 10/07/16 Status: DiscontinuedoxyCODONE-acetaminophen 5mg-325mg oral tablet 1 tab(s), Oral, q6hr interval, 0 Refill(s), Start Date: 09/04/16 15:25:00 PERMIT REVIEW ASSISTANT Start Date: 09/04/16 Status: Orderedprimidone 50 mg oral tablet 1 tab(s), Oral, TID, # 90 tab(s), 0 Refill(s), Start Date: 09/21/16 9:49:00 PERMIT REVIEW ASSISTANT Start Date: 09/21/16 Status: Orderedpropranolol 10 mg oral tablet 1 tab(s), Oral, TID, # 90 tab(s), 0 Refill(s), Start Date: 09/04/16 15:25:00 PERMIT REVIEW ASSISTANT Start Date: 09/04/16 Status: Orderedsulfamethoxazole-trimethoprim 400 mg-80 mg oral tablet 2 tab(s), Oral, Daily, Take twice a day for 7 days then daily until completed, # 30 tab(s), 0 Refill(s), Start Date: 09/04/16 17:57:00 PERMIT REVIEW ASSISTANT, [facility] [place] [place] Special Instructions: Take twice a day for 7 days then daily until completed Start Date: 09/04/16 Stop Date: 09/21/16 Status: Completedsulfamethoxazole-trimethoprim 800 mg-160 mg oral tablet 0 Refill(s), Start Date: 09/04/16 15:24:00 PERMIT REVIEW ASSISTANT Start Date: 09/04/16 Stop Date: 09/04/16 Status: Discontinuedtamsulosin 0.4 mg oral capsule 1 cap(s), Oral, HS, # 30 cap(s), 6 Refill(s), Start Date: 01/01/15 15:15:00 CDT , [facility] [place] [place] Start Date: 01/01/15 Stop Date: 08/07/15 Status: Completedtamsulosin 0.4 mg oral capsule 1 cap(s), Oral, HS, # 30 cap(s), 11 Refill(s), Start Date: 12/08/13 14:23:00 CDT , [facility]acy: [facility] [place], [place] Start Date: 12/08/13 Stop Date: 01/01/15 Status: Completedtamsulosin 0.4 mg oral capsule 1 cap(s), Oral, HS, # 30 cap(s), 11 Refill(s), Start Date: 08/07/15 12:22:23 PERMIT REVIEW ASSISTANT , [facility]acy: [facility] [place], [place] Start Date: 08/07/15 Stop Date: 08/11/16 Status: Completedtamsulosin 0.4 mg oral capsule 1 cap(s), Oral, HS, # 30 cap(s), 11 Refill(s), Start Date: 08/11/16 10:56:09 PERMIT REVIEW ASSISTANT , Pharmacy: [facility] [place], [place] Start Date: 08/11/16 Status: Ordered Results No data available for this section Immunizations No data available for this section Procedures Procedure Date Related Diagnosis Body Site Cystoscopy - SN (Bilateral)1 09/22/16 Cystoscopy - SN (Bilateral)2 09/04/16 Amputation3 Foot4 Shoulder5 Skin6 Urethral7 1auto-populated from documented surgical [id number] from documented surgical bnxt8Csdzo lower lec7Ftekl ksnt7nlps shoulder vjpynas5euya yoljf8laivfrm dilation Social History No data available for this section Assessment and Plan No data available for this section
--- OUTSIDE RECORDS SUMMARY | 2016-12-28 15:41 | XMS REPORT | Summary of Care ---
:1950 Author Organization [facility] Address [address] [place] [address] Care Team Providers Name Role Phone Carlos Luo Primary Care Physician Encounter Date(s): 10/20/16 - 10/20/16 [facility], [address] [place], [place] [address] Discharge Disposition: Discharged to Home or Self Care Attending Physician: Jovan Hamlin MD Referring Physician: Jovan Hamlin MD Vital Signs Most recent to oldest [Reference Range]: 1 Temperature Temporal Artery [36.0-38.0 DegC] 36.8 DegC (10/20/16 10:25 AM) Peripheral Pulse Rate [60-100 bpm] 66 bpm (10/20/16 10:25 AM) Blood Pressure [90-130/60-90 mmHg] 96/56mmHg (10/20/16 10:25 AM) Mean Arterial Pressure, Cuff 69 mmHg (10/20/16 10:25 AM) Problem List Condition Effective Dates Status Health Status Informant 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 Start Date: 09/10/16 Stop Date: 10/07/16 Status: DiscontinuedDiflucan 150 mg oral tablet 1 tab(s), Oral, Daily, START ON WednesdayMARCH 23, # 3 tab(s), 0 Refill(s), Start Date: 02/18/16 11:09:00 CDT, [facility] [facility] Special Instructions: START ON WednesdayMARCH 23 Start Date: 02/18/16 Stop Date: 09/04/16 Status: DiscontinuedDiflucan 150 mg oral tablet 1 tab(s), Oral, Daily, # 7 tab(s), 0 Refill(s), Start Date: 09/08/16 11:19:00 PUBLISHER ASSISTANT, [place] [facility] [place] Start Date: 09/08/16 Stop Date: 09/21/16 Status: CompletedDiflucan 150 mg oral tablet 1 tab(s), Oral, Daily, # 3 tab(s), 0 Refill(s), Start Date: 09/04/16 17:56:00 PUBLISHER ASSISTANT, [facility]acy: [facility] [place] [place] Start Date: 09/04/16 Stop Date: 09/21/16 Status: CompletedDitropan 5 mg oral tablet 1 tab(s), Oral, q12hr, PRN bladder spasm, cramping, severe stent pain, # 30 tab( s), 1 Refill(s), Start Date: 09/04/16 17:57:00 PUBLISHER ASSISTANT, Pharmacy: [facility] [place] [place] Start Date: 09/04/16 Status: Orderedfluconazole 200 mg oral tablet 2 tab(s), Oral, Daily, # 28 tab(s), 0 Refill(s), Start Date: 10/07/16 9:54:00 PUBLISHER ASSISTANT, Pharmacy: [facility] [place] [place] Start Date: 10/07/16 Stop Date: 10/21/16 Status: OrderedHYDROcodone-acetaminophen 5mg-325mg oral tablet 1 tab(s), Oral, q6hr, # 30 tab(s), 0 Refill(s), Start Date: 09/04/16 17:57:00 PUBLISHER ASSISTANT, [facility]acy: [facility] [place] [place] Start Date: 09/04/16 Status: OrderedmetFORMIN 850 mg oral tablet 1 tab(s), Oral, BID, # 180 tab(s), 0 Refill(s), Start Date: 09/04/16 15:25:00 PUBLISHER ASSISTANT Start Date: 09/04/16 Status: OrderedMiraLax oral powder for reconstitution 17 gm=, Oral, Daily, # 527 gm, 11 Refill(s), Start Date: 10/05/16 8:44:31 PUBLISHER ASSISTANT, Pharmacy: [facility] [place] [place] Start Date: 10/05/16 Status: OrderedMiraLax oral powder for reconstitution 17 gm=, Oral, Daily, # 527 gm, 0 Refill(s), Start Date: 09/04/16 17:57:00 PUBLISHER ASSISTANT, [facility] [place] [place] Start Date: 09/04/16 Stop Date: 10/05/16 Status: Completednitrofurantoin macrocrystals 100 mg oral capsule 1 cap(s), Oral, BID, Start this prescription and complete, # 28 cap(s ), 0 Refill(s), Start Date: 09/10/16 13:41:00 PUBLISHER ASSISTANT, [facility] [place] [place] Special Instructions: Start this prescription and complete Start Date: 09/10/16 Stop Date: 10/07/16 Status: Discontinuednitrofurantoin macrocrystals 100 mg oral capsule 1 cap(s), Oral, Daily, Start this prescription after you've completed the 14 day treatment course, # 30 cap(s), 11 Refill(s), Start Date: 09/10/16 13:41:00 PUBLISHER ASSISTANT, [facility] [place] [place] Special Instructions: Start this prescription after you've completed the 14 day treatment course Start Date: 09/10/16 Stop Date: 10/07/16 Status: DiscontinuedoxyCODONE-acetaminophen 5mg-325mg oral tablet 1 tab(s), Oral, q6hr interval, 0 Refill(s), Start Date: 09/04/16 15:25:00 PUBLISHER ASSISTANT Start Date: 09/04/16 Status: Orderedprimidone 50 mg oral tablet 1 tab(s), Oral, TID, # 90 tab(s), 0 Refill(s), Start Date: 09/21/16 9:49:00 PUBLISHER ASSISTANT Start Date: 09/21/16 Status: Orderedpropranolol 10 mg oral tablet 1 tab(s), Oral, TID, # 90 tab(s), 0 Refill(s), Start Date: 09/04/16 15:25:00 PUBLISHER ASSISTANT Start Date: 09/04/16 Status: Orderedsulfamethoxazole-trimethoprim 400 mg-80 mg oral tablet 2 tab(s), Oral, Daily, Take twice a day for 7 days then daily until completed, # 30 tab(s), 0 Refill(s), Start Date: 09/04/16 17:57:00 PUBLISHER ASSISTANT, [facility]acy: [facility] [place] Special Instructions: Take twice a day for 7 days then daily until completed Start Date: 09/04/16 Stop Date: 09/21/16 Status: Completedsulfamethoxazole-trimethoprim 800 mg-160 mg oral tablet 0 Refill(s), Start Date: 09/04/16 15:24:00 PUBLISHER ASSISTANT Start Date: 09/04/16 Stop Date: 09/04/16 Status: Discontinuedtamsulosin 0.4 mg oral capsule 1 cap(s), Oral, HS, # 30 cap(s), 6 Refill(s), Start Date: 01/01/15 15:15:00 CDT , [facility]acy: [facility] [place], [place] Start Date: 01/01/15 Stop Date: 08/07/15 Status: Completedtamsulosin 0.4 mg oral capsule 1 cap(s), Oral, HS, # 30 cap(s), 11 Refill(s), Start Date: 12/08/13 14:23:00 CDT , Pharmacy: [facility] [place], [place] Start Date: 12/08/13 Stop Date: 01/01/15 Status: Completedtamsulosin 0.4 mg oral capsule 1 cap(s), Oral, HS, # 30 cap(s), 11 Refill(s), Start Date: 08/07/15 12:22:23 PUBLISHER ASSISTANT , Pharmacy: [facility] [place], [place] Start Date: 08/07/15 Stop Date: 08/11/16 Status: Completedtamsulosin 0.4 mg oral capsule 1 cap(s), Oral, HS, # 30 cap(s), 11 Refill(s), Start Date: 08/11/16 10:56:09 PUBLISHER ASSISTANT , [facility] [facility] [place] Start Date: 08/11/16 Status: Ordered Results No data available for this section Immunizations No data available for this section Procedures Procedure Date Related Diagnosis Body Site Cystoscopy - SN (Bilateral)1 09/22/16 Cystoscopy - SN (Bilateral)2 09/04/16 Amputation3 Foot4 Shoulder5 Skin6 Urethral7 1auto-populated from documented surgical [id number] from documented surgical krbl3Phmii lower njn1Rlbik hbmh3mopc shoulder gdtoxpm6zfxc wshos4ytsolzq dilation Social History No data available for this section Assessment and Plan No data available for this section
--- OUTSIDE RECORDS SUMMARY | 2016-12-28 15:41 | XMS REPORT | Summary of Care ---
:1950 Author Organization [facility] Address [address] [place] [address] Care Team Providers Name Role Phone Carlos Luo Demetria Primary Care Physician Encounter Date(s): 10/23/16 - [facility] [address] [place], [place] [address] Discharge Disposition: Discharged to Home or Self Care Attending Physician: Jovan Hamlin MD Referring Physician: Jovan Hamlin MD Vital Signs Most recent to oldest [Reference Range]: 1 Temperature Temporal Artery [36.0-38.0 DegC] 36.9 DegC (10/23/16 2:54 PM) Peripheral Pulse Rate [60-100 bpm] 62 bpm (10/23/16 2:54 PM) Blood Pressure [90-130/60-90 mmHg] 121/61mmHg (10/23/16 2:54 PM) Mean Arterial Pressure, Cuff 81 mmHg (10/23/16 2:54 PM) Most recent to oldest [Reference Range]: 1 Weight Dosing 93.1 kg (10/23/16 2:54 PM) Weight Measured 93.1 kg (10/23/16 2:54 PM) Problem List Condition Effective Dates Status Health Status Informant 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 Start Date: 09/10/16 Stop Date: 10/07/16 Status: DiscontinuedDiflucan 150 mg oral tablet 1 tab(s), Oral, Daily, START ON WednesdayMARCH 23, # 3 tab(s), 0 Refill(s), Start Date: 02/18/16 11:09:00 CDT, [facility] [facility] Special Instructions: START ON WednesdayMARCH 23 Start Date: 02/18/16 Stop Date: 09/04/16 Status: DiscontinuedDiflucan 150 mg oral tablet 1 tab(s), Oral, Daily, # 7 tab(s), 0 Refill(s), Start Date: 09/08/16 11:19:00 MEDICAL OPERATIONS SUPERVISOR, [place] [facility] [place] Start Date: 09/08/16 Stop Date: 09/21/16 Status: CompletedDiflucan 150 mg oral tablet 1 tab(s), Oral, Daily, # 3 tab(s), 0 Refill(s), Start Date: 09/04/16 17:56:00 MEDICAL OPERATIONS SUPERVISOR, Pharmacy: [facility] [place], [place] Start Date: 09/04/16 Stop Date: 09/21/16 Status: CompletedDitropan 5 mg oral tablet 1 tab(s), Oral, q12hr, PRN bladder spasm, cramping, severe stent pain, # 30 tab( s), 1 Refill(s), Start Date: 09/04/16 17:57:00 MEDICAL OPERATIONS SUPERVISOR, [place] [facility] [place] Start Date: 09/04/16 Status: Orderedfluconazole 200 mg oral tablet 2 tab(s), Oral, Daily, # 28 tab(s), 0 Refill(s), Start Date: 10/07/16 9:54:00 MEDICAL OPERATIONS SUPERVISOR, [place] [facility] [place] Start Date: 10/07/16 Stop Date: 10/21/16 Status: OrderedHYDROcodone-acetaminophen 5mg-325mg oral tablet 1 tab(s), Oral, q6hr, # 30 tab(s), 0 Refill(s), Start Date: 09/04/16 17:57:00 MEDICAL OPERATIONS SUPERVISOR, Pharmacy: [facility] [place] Start Date: 09/04/16 Status: OrderedmetFORMIN 850 mg oral tablet 1 tab(s), Oral, BID, # 180 tab(s), 0 Refill(s), Start Date: 09/04/16 15:25:00 MEDICAL OPERATIONS SUPERVISOR Start Date: 09/04/16 Status: OrderedMiraLax oral powder for reconstitution 17 gm=, Oral, Daily, # 527 gm, 11 Refill(s), Start Date: 10/05/16 8:44:31 MEDICAL OPERATIONS SUPERVISOR, Pharmacy: [facility] [place], [place] Start Date: 10/05/16 Status: OrderedMiraLax oral powder for reconstitution 17 gm=, Oral, Daily, # 527 gm, 0 Refill(s), Start Date: 09/04/16 17:57:00 MEDICAL OPERATIONS SUPERVISOR, Pharmacy: [facility] [place], [place] Start Date: 09/04/16 Stop Date: 10/05/16 Status: Completednitrofurantoin macrocrystals 100 mg oral capsule 1 cap(s), Oral, BID, Start this prescription and complete, # 28 cap(s ), 0 Refill(s), Start Date: 09/10/16 13:41:00 MEDICAL OPERATIONS SUPERVISOR, Pharmacy: [facility] [place], [place] Special Instructions: Start this prescription and complete Start Date: 09/10/16 Stop Date: 10/07/16 Status: Discontinuednitrofurantoin macrocrystals 100 mg oral capsule 1 cap(s), Oral, Daily, Start this prescription after you've completed the 14 day treatment course, # 30 cap(s), 11 Refill(s), Start Date: 09/10/16 13:41:00 MEDICAL OPERATIONS SUPERVISOR, Pharmacy: [facility] [place], [place] Special Instructions: Start this prescription after you've completed the 14 day treatment course Start Date: 09/10/16 Stop Date: 10/07/16 Status: DiscontinuedoxyCODONE-acetaminophen 5mg-325mg oral tablet 1 tab(s), Oral, q6hr interval, 0 Refill(s), Start Date: 09/04/16 15:25:00 MEDICAL OPERATIONS SUPERVISOR Start Date: 09/04/16 Status: Orderedprimidone 50 mg oral tablet 1 tab(s), Oral, TID, # 90 tab(s), 0 Refill(s), Start Date: 09/21/16 9:49:00 MEDICAL OPERATIONS SUPERVISOR Start Date: 09/21/16 Status: Orderedpropranolol 10 mg oral tablet 1 tab(s), Oral, TID, # 90 tab(s), 0 Refill(s), Start Date: 09/04/16 15:25:00 MEDICAL OPERATIONS SUPERVISOR Start Date: 09/04/16 Status: Orderedsulfamethoxazole-trimethoprim 400 mg-80 mg oral tablet 2 tab(s), Oral, Daily, Take twice a day for 7 days then daily until completed, # 30 tab(s), 0 Refill(s), Start Date: 09/04/16 17:57:00 MEDICAL OPERATIONS SUPERVISOR, [facility] [place] [place] Special Instructions: Take twice a day for 7 days then daily until completed Start Date: 09/04/16 Stop Date: 09/21/16 Status: Completedsulfamethoxazole-trimethoprim 800 mg-160 mg oral tablet 0 Refill(s), Start Date: 09/04/16 15:24:00 MEDICAL OPERATIONS SUPERVISOR Start Date: 09/04/16 Stop Date: 09/04/16 Status: Discontinuedtamsulosin 0.4 mg oral capsule 1 cap(s), Oral, HS, # 30 cap(s), 6 Refill(s), Start Date: 01/01/15 15:15:00 CDT , Pharmacy: [facility] [place] [place] Start Date: 01/01/15 Stop Date: 08/07/15 Status: Completedtamsulosin 0.4 mg oral capsule 1 cap(s), Oral, HS, # 30 cap(s), 11 Refill(s), Start Date: 12/08/13 14:23:00 CDT , Pharmacy: [facility] [place] [place] Start Date: 12/08/13 Stop Date: 01/01/15 Status: Completedtamsulosin 0.4 mg oral capsule 1 cap(s), Oral, HS, # 30 cap(s), 11 Refill(s), Start Date: 08/07/15 12:22:23 MEDICAL OPERATIONS SUPERVISOR , Pharmacy: [facility] [place] [place] Start Date: 08/07/15 Stop Date: 08/11/16 Status: Completedtamsulosin 0.4 mg oral capsule 1 cap(s), Oral, HS, # 30 cap(s), 11 Refill(s), Start Date: 08/11/16 10:56:09 MEDICAL OPERATIONS SUPERVISOR , Pharmacy: [facility] [place] [place] Start Date: 08/11/16 Status: Ordered Results No data available for this section Immunizations No data available for this section Procedures Procedure Date Related Diagnosis Body Site Cystoscopy - SN (Bilateral)1 09/22/16 Cystoscopy - SN (Bilateral)2 09/04/16 Amputation3 Foot4 Shoulder5 Skin6 Urethral7 1auto-populated from documented surgical fjah2qinx-ppjlrnxdx from documented surgical cqtr1Cpgfl lower ijw0Xbmxa nodw8xlys shoulder ryrwzcd9xqpf dnzep5zhjefie dilation Social History No data available for this section Assessment and Plan No data available for this section
--- OUTSIDE RECORDS SUMMARY | 2016-12-28 15:41 | XMS REPORT | Summary of Care ---
:1950 Author Organization [facility] Address [address] [place] [id number]- Care Team Providers Name Role Phone Carlos Luo Primary Care Physician Encounter Date(s): 09/22/16 - 09/22/[address] [address]- [facility] Discharge Disposition: 01 Discharged to Home or Self Care Attending Physician: Jovan Hamlin MD Admitting Physician: Jovan Hamlin MD Vital Signs Most recent to oldest 1 2 3 [Reference Range]: Temperature Temporal Artery 36.6 DegC 36.5 DegC 36.7 DegC [36-38 DegC] (09/22/16 10:00 AM) (09/22/16 8:54 AM) (09/22/16 7:29 AM) Heart Rate Monitored [60-100 58 bpm 77 bpm 78 bpm bpm] *LOW* (09/22/16 8:54 AM) (09/22/16 8:25 AM) (09/22/16 10:00 AM) Respiratory Rate [12-20 16 br/min 16 br/min 16 br/min br/min] (09/22/16 10:00 AM) (09/22/16 8:54 AM) (09/22/16 8:25 AM) SpO2 97 % 97 % 99 % (09/22/16 10:00 AM) (09/22/16 8:54 AM) (09/22/16 8:25 AM) SpO2 Location Left hand (09/22/16 7:29 AM) Blood Pressure [90-130/60-90 139/63mmHg 128/65mmHg 128/69mmHg mmHg] *HI* (09/22/16 8:54 AM) (09/22/16 8:25 AM) (09/22/16 10:00 AM) Height/Length Measured 184 cm (09/22/16 5:56 AM) Height/Length Estimated 184 cm 184 cm (09/22/16 5:56 AM) (09/21/16 8:04 AM) Weight Estimated 94.9 kg 94 kg (09/22/16 5:56 AM) (09/21/16 8:04 AM) Weight Dosing 94.9 kg (09/22/16 5:56 AM) Weight Measured 94.9 kg (09/22/16 5:56 AM) BSA Measured 2.18 m2 (09/22/16 5:56 AM) BSA Estimated 2.2 m2 (09/22/16 5:56 AM) Body Mass Index Measured 28.03 kg/m2 (09/22/16 5:56 AM) Body Mass Index Estimated 28.03 kg/m2 (09/22/16 5:56 AM) Problem List Condition Effective Dates Status [...] 0 Refill( s), Start Date: 09/10/16 13:41:00 HAND PLUG SHAPER, [facility]: [facility] [place] [place] Start Date: 09/10/16 Stop Date: 09/13/16 Status: OrderedDiflucan 150 mg oral tablet 1 tab(s), Oral, Daily, START ON WednesdayMARCH 23, # 3 tab(s), 0 Refill(s), Start Date: 02/18/16 11:09:00 CDT, [facility]acy: [facility] [place], [place] Start Date: 02/18/16 Stop Date: 09/04/16 Status: DiscontinuedDiflucan 150 mg oral tablet 1 tab(s), Oral, Daily, # 7 tab(s), 0 Refill(s), Start Date: 09/08/16 11:19:00 HAND PLUG SHAPER, [facility]acy: [facility] [place] [place] Start Date: 09/08/16 Stop Date: 09/21/16 Status: CompletedDiflucan 150 mg oral tablet 1 tab(s), Oral, Daily, # 3 tab(s), 0 Refill(s), Start Date: 09/04/16 17:56:00 HAND PLUG SHAPER, [facility]acy: [facility] [place] [place] Start Date: 09/04/16 Stop Date: 09/21/16 Status: CompletedDitropan 5 mg oral tablet 1 tab(s), Oral, q12hr, PRN bladder spasm, cramping, severe stent pain, # 30 tab( s), 1 Refill(s), Start Date: 09/04/16 17:57:00 HAND PLUG SHAPER, [facility] [place] Start Date: 09/04/16 Status: OrderedHYDROcodone-acetaminophen 5mg-325mg oral tablet 1 tab(s), Oral, q6hr, # 30 tab(s), 0 Refill(s), Start Date: 09/04/16 17:57:00 HAND PLUG SHAPER, [facility]acy: [facility] [place] [place] Start Date: 09/04/16 Status: OrderedmetFORMIN 850 mg oral tablet 1 tab(s), Oral, BID, # 180 tab(s), 0 Refill(s), Start Date: 09/04/16 15:25:00 HAND PLUG SHAPER Start Date: 09/04/16 Status: OrderedMiraLax oral powder for reconstitution 17 gm=, Oral, Daily, # 527 gm, 0 Refill(s), Start Date: 09/04/16 17:57:00 HAND PLUG SHAPER, [facility]acy: [facility] [place] [place] Start Date: 09/04/16 Status: Orderednitrofurantoin macrocrystals 100 mg oral capsule 1 cap(s), Oral, BID, Start this prescription and complete, # 28 cap(s ), 0 Refill(s), Start Date: 09/10/16 13:41:00 HAND PLUG SHAPER, [facility] [place] Start Date: 09/10/16 Stop Date: 09/24/16 Status: Orderednitrofurantoin macrocrystals 100 mg oral capsule 1 cap(s), Oral, Daily, Start this prescription after you've completed the 14 day treatment course, # 30 cap(s), 11 Refill(s), Start Date: 09/10/16 13:41:00 HAND PLUG SHAPER, [facility] Start Date: 09/10/16 Status: OrderedoxyCODONE-acetaminophen 5mg-325mg oral tablet 1 tab(s), Oral, q6hr interval, 0 Refill(s), Start Date: 09/04/16 15:25:00 HAND PLUG SHAPER Start Date: 09/04/16 Status: Orderedprimidone 50 mg oral tablet 1 tab(s), Oral, TID, # 90 tab(s), 0 Refill(s), Start Date: 09/21/16 9:49:00 HAND PLUG SHAPER Start Date: 09/21/16 Status: Orderedpropranolol 10 mg oral tablet 1 tab(s), Oral, TID, # 90 tab(s), 0 Refill(s), Start Date: 09/04/16 15:25:00 HAND PLUG SHAPER Start Date: 09/04/16 Status: Orderedsulfamethoxazole-trimethoprim 400 mg-80 mg oral tablet 2 tab(s), Oral, Daily, Take twice a day for 7 days then daily until completed, # 30 tab(s), 0 Refill(s), Start Date: 09/04/16 17:57:00 HAND PLUG SHAPER, [facility]acy: [facility] [place] [place] Start Date: 09/04/16 Stop Date: 09/21/16 Status: Completedsulfamethoxazole-trimethoprim 800 mg-160 mg oral tablet 0 Refill(s), Start Date: 09/04/16 15:24:00 HAND PLUG SHAPER Start Date: 09/04/16 Stop Date: 09/04/16 Status: Discontinuedtamsulosin 0.4 mg oral capsule 1 cap(s), Oral, HS, # 30 cap(s), 6 Refill(s), Start Date: 01/01/15 15:15:00 CDT , [facility] [place] Start Date: 01/01/15 Stop Date: 08/07/15 Status: Completedtamsulosin 0.4 mg oral capsule 1 cap(s), Oral, HS, # 30 cap(s), 11 Refill(s), Start Date: 12/08/13 14:23:00 CDT , [facility] [place] [place] Start Date: 12/08/13 Stop Date: 01/01/15 Status: Completedtamsulosin 0.4 mg oral capsule 1 cap(s), Oral, HS, # 30 cap(s), 11 Refill(s), Start Date: 08/07/15 12:22:23 HAND PLUG SHAPER , [facility]acy: [facility] [place] [place] Start Date: 08/07/15 Stop Date: 08/11/16 Status: Completedtamsulosin 0.4 mg oral capsule 1 cap(s), Oral, HS, # 30 cap(s), 11 Refill(s), Start Date: 08/11/16 10:56:09 HAND PLUG SHAPER , [facility]acy: [facility] [place] [place] Start Date: 08/11/16 Status: Ordered Results Patient Viewable Results Most recent to oldest 1 2 3 [Reference Range]: AN - Fi O2 93 % % 97 % % 95 % % (09/22/16 7:25 AM) (09/22/16 7:20 AM) (09/22/16 7:15 AM) Estimated Creatinine Clearance 118.23 mL/min (09/22/16 6:01 AM) Whole Blood Glucose [70-108 100 mg/dL1 mg/dL] (09/22/16 5:53 AM) 1Result Comment: Pension Consultant: [id number] Vega LPNMicrobiology Reports TEST:Fungus Culture with smear STATUS:Order in Progress BODY SITE: SOURCE:Urine COLLECTED DATE/TIME:09/22/16 7:20 AMSTAIN REPORTYeast cells seen Immunizations No data available for this section Procedures Procedure Date Related Diagnosis Body Site Cystoscopy - SN (Bilateral)1 09/22/16 Cystoscopy - SN (Bilateral)2 09/04/16 Amputation3 Foot4 Shoulder5 Skin6 Urethral7 1auto-populated from documented surgical [id number] from documented surgical hlbi7Tamry lower teh3Pxxhj qpdo2ndzp shoulder uyaocfz4zhlt wtjwd7fdetgrl dilation Social History No data available for this section Assessment and Plan No data available for this section
--- OUTSIDE RECORDS SUMMARY | 2016-12-28 15:41 | XMS REPORT | Summary of Care ---
:1950 Author Organization [facility] Address [address] [place] [address] Care Team Providers Name Role Phone Carlos Luo Primary Care Physician Encounter Date(s): 10/07/16 - 10/07/16 [facility], [address] [place], [place] [address] Discharge Diagnosis: Kisha UTI Discharge Disposition: Discharged to Home or Self Care Attending Physician: Micheal Deal MD Referring Physician: Jovan Hamlin MD Vital Signs Most recent to oldest [Reference Range]: 1 Temperature Tympanic [36.6-38.1 DegC] 36.7 DegC (10/07/16 9:33 AM) Temperature C to F 98.1 (10/07/16 9:33 AM) Peripheral Pulse Rate [60-100 bpm] 62 bpm (10/07/16 9:33 AM) SpO2 96 % (10/07/16 9:33 AM) SpO2 Location Right hand (10/07/16 9:33 AM) Blood Pressure [90-130/60-90 mmHg] 113/53mmHg (10/07/16 9:33 AM) Mean Arterial Pressure, Cuff 73 mmHg (10/07/16 9:33 AM) Most recent to oldest [Reference Range]: 1 Height/Length Measured 184 cm (10/07/16 9:33 AM) Weight Dosing 96.10 kg1 (10/07/16 9:36 AM) Weight Measured 96.1 kg (10/07/16 9:33 AM) BSA Measured 2.19 m2 (10/07/16 9:33 AM) Body Mass Index Measured 28.38 kg/m2 (10/07/16 9:33 AM) 1Result Comment: This result was because the dosing weight was either not entered or it is>30 days old. This result is based off: Weight Measured October 07, 2016 09:33:00 COMMERCIAL LINES UNDERWRITER by Amber Montilla Problem List Condition Effective [...] 0 Refill( s), Start Date: 09/10/16 13:41:00 COMMERCIAL LINES UNDERWRITER, [facility]: [facility] [place] [place] Special Instructions: start this prescription . Start Date: 09/10/16 Stop Date: 10/07/16 Status: DiscontinuedDiflucan 150 mg oral tablet 1 tab(s), Oral, Daily, START ON WednesdayMARCH 23, # 3 tab(s), 0 Refill(s), Start Date: 02/18/16 11:09:00 CDT, [facility]acy: [facility] [place], [place] Special Instructions: START ON WednesdayMARCH 23 Start Date: 02/18/16 Stop Date: 09/04/16 Status: DiscontinuedDiflucan 150 mg oral tablet 1 tab(s), Oral, Daily, # 7 tab(s), 0 Refill(s), Start Date: 09/08/16 11:19:00 COMMERCIAL LINES UNDERWRITER, [facility]acy: [facility] [place] [place] Start Date: 09/08/16 Stop Date: 09/21/16 Status: CompletedDiflucan 150 mg oral tablet 1 tab(s), Oral, Daily, # 3 tab(s), 0 Refill(s), Start Date: 09/04/16 17:56:00 COMMERCIAL LINES UNDERWRITER, [facility]acy: [facility] [place] [place] Start Date: 09/04/16 Stop Date: 09/21/16 Status: CompletedDitropan 5 mg oral tablet 1 tab(s), Oral, q12hr, PRN bladder spasm, cramping, severe stent pain, # 30 tab( s), 1 Refill(s), Start Date: 09/04/16 17:57:00 COMMERCIAL LINES UNDERWRITER, [facility]acy: [facility] [place], [place] Start Date: 09/04/16 Status: Orderedfluconazole 200 mg oral tablet 2 tab(s), Oral, Daily, # 28 tab(s), 0 Refill(s), Start Date: 10/07/16 9:54:00 COMMERCIAL LINES UNDERWRITER, [facility]acy: [facility] [place] [place] Start Date: 10/07/16 Stop Date: 10/21/16 Status: OrderedHYDROcodone-acetaminophen 5mg-325mg oral tablet 1 tab(s), Oral, q6hr, # 30 tab(s), 0 Refill(s), Start Date: 09/04/16 17:57:00 COMMERCIAL LINES UNDERWRITER, [facility]acy: [facility] [place] [place] Start Date: 09/04/16 Status: OrderedmetFORMIN 850 mg oral tablet 1 tab(s), Oral, BID, # 180 tab(s), 0 Refill(s), Start Date: 09/04/16 15:25:00 COMMERCIAL LINES UNDERWRITER Start Date: 09/04/16 Status: OrderedMiraLax oral powder for reconstitution 17 gm=, Oral, Daily, # 527 gm, 11 Refill(s), Start Date: 10/05/16 8:44:31 COMMERCIAL LINES UNDERWRITER, Pharmacy: [facility] [place] [place] Start Date: 10/05/16 Status: OrderedMiraLax oral powder for reconstitution 17 gm=, Oral, Daily, # 527 gm, 0 Refill(s), Start Date: 09/04/16 17:57:00 COMMERCIAL LINES UNDERWRITER, [facility]acy: [facility] [place] [place] Start Date: 09/04/16 Stop Date: 10/05/16 Status: Completednitrofurantoin macrocrystals 100 mg oral capsule 1 cap(s), Oral, BID, Start this prescription and complete, # 28 cap(s ), 0 Refill(s), Start Date: 09/10/16 13:41:00 COMMERCIAL LINES UNDERWRITER, [facility]acy: [facility] [place] [place] Special Instructions: Start this prescription and complete Start Date: 09/10/16 Stop Date: 10/07/16 Status: Discontinuednitrofurantoin macrocrystals 100 mg oral capsule 1 cap(s), Oral, Daily, Start this prescription after you've completed the 14 day treatment course, # 30 cap(s), 11 Refill(s), Start Date: 09/10/16 13:41:00 COMMERCIAL LINES UNDERWRITER, [facility]acy: [facility] [place] [place] Special Instructions: Start this prescription after you've completed the 14 day treatment course Start Date: 09/10/16 Stop Date: 10/07/16 Status: DiscontinuedoxyCODONE-acetaminophen 5mg-325mg oral tablet 1 tab(s), Oral, q6hr interval, 0 Refill(s), Start Date: 09/04/16 15:25:00 COMMERCIAL LINES UNDERWRITER Start Date: 09/04/16 Status: Orderedprimidone 50 mg oral tablet 1 tab(s), Oral, TID, # 90 tab(s), 0 Refill(s), Start Date: 09/21/16 9:49:00 COMMERCIAL LINES UNDERWRITER Start Date: 09/21/16 Status: Orderedpropranolol 10 mg oral tablet 1 tab(s), Oral, TID, # 90 tab(s), 0 Refill(s), Start Date: 09/04/16 15:25:00 COMMERCIAL LINES UNDERWRITER Start Date: 09/04/16 Status: Orderedsulfamethoxazole-trimethoprim 400 mg-80 mg oral tablet 2 tab(s), Oral, Daily, Take twice a day for 7 days then daily until completed, # 30 tab(s), 0 Refill(s), Start Date: 09/04/16 17:57:00 COMMERCIAL LINES UNDERWRITER, [facility]acy: [facility] [place] [place] Special Instructions: Take twice a day for 7 days then daily until completed Start Date: 09/04/16 Stop Date: 09/21/16 Status: Completedsulfamethoxazole-trimethoprim 800 mg-160 mg oral tablet 0 Refill(s), Start Date: 09/04/16 15:24:00 COMMERCIAL LINES UNDERWRITER Start Date: 09/04/16 Stop Date: 09/04/16 Status: Discontinuedtamsulosin 0.4 mg oral capsule 1 cap(s), Oral, HS, # 30 cap(s), 6 Refill(s), Start Date: 01/01/15 15:15:00 CDT , [facility]acy: [facility] [place] [place] Start Date: 01/01/15 Stop Date: 08/07/15 Status: Completedtamsulosin 0.4 mg oral capsule 1 cap(s), Oral, HS, # 30 cap(s), 11 Refill(s), Start Date: 12/08/13 14:23:00 CDT , [facility]acy: [facility] [place] [place] Start Date: 12/08/13 Stop Date: 01/01/15 Status: Completedtamsulosin 0.4 mg oral capsule 1 cap(s), Oral, HS, # 30 cap(s), 11 Refill(s), Start Date: 08/07/15 12:22:23 COMMERCIAL LINES UNDERWRITER , [facility]acy: [facility] [place] [place] Start Date: 08/07/15 Stop Date: 08/11/16 Status: Completedtamsulosin 0.4 mg oral capsule 1 cap(s), Oral, HS, # 30 cap(s), 11 Refill(s), Start Date: 08/11/16 10:56:09 COMMERCIAL LINES UNDERWRITER , [facility]acy: [facility] [place], [place] Start Date: 08/11/16 Status: Ordered Results No data available for this section Immunizations No data available for this section Procedures Procedure Date Related Diagnosis Body Site Cystoscopy - SN (Bilateral)1 09/22/16 Cystoscopy - SN (Bilateral)2 09/04/16 Amputation3 Foot4 Shoulder5 Skin6 Urethral7 1auto-populated from documented surgical [id number] from documented surgical zufg8Qdxeb lower ror4Wyksl qmob0eooy shoulder kenzbaf4rqzv xmuqw1sbrencz dilation Social History No data available for this section Assessment and Plan No data available for this section
--- OUTSIDE RECORDS SUMMARY | 2016-12-28 15:41 | XMS REPORT | Summary of Care ---
:1950 Author Organization [facility] Address [address] [place] [address] Care Team Providers Name Role Phone Carlos Luo Demetria Primary Care Physician Encounter Date(s): 10/14/16 - 10/14/16 [facility] [address] [place], [place] [address] Discharge Disposition: Discharged to Home or Self Care Attending Physician: Jovan Hamlin MD Referring Physician: Jovan Hamlin MD Vital Signs Most recent to oldest [Reference Range]: 1 Temperature Temporal Artery [36.0-38.0 DegC] 36.8 DegC (10/14/16 3:12 PM) Peripheral Pulse Rate [60-100 bpm] 65 bpm (10/14/16 3:12 PM) Blood Pressure [90-130/60-90 mmHg] 116/55mmHg (10/14/16 3:12 PM) Mean Arterial Pressure, Cuff 75 mmHg (10/14/16 3:12 PM) Most recent to oldest [Reference Range]: 1 Height/Length Measured 184 cm (10/14/16 3:12 PM) Weight Dosing 95.1 kg (10/14/16 3:12 PM) Problem List Condition Effective Dates Status Health Status Informant 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 Start Date: 09/10/16 Stop Date: 10/07/16 Status: DiscontinuedDiflucan 150 mg oral tablet 1 tab(s), Oral, Daily, START ON WednesdayMARCH 23, # 3 tab(s), 0 Refill(s), Start Date: 02/18/16 11:09:00 CDT, [facility] [facility] [place] Special Instructions: START ON WednesdayMARCH 23 Start Date: 02/18/16 Stop Date: 09/04/16 Status: DiscontinuedDiflucan 150 mg oral tablet 1 tab(s), Oral, Daily, # 7 tab(s), 0 Refill(s), Start Date: 09/08/16 11:19:00 KEYCASE ASSEMBLER, [facility] Start Date: 09/08/16 Stop Date: 09/21/16 Status: CompletedDiflucan 150 mg oral tablet 1 tab(s), Oral, Daily, # 3 tab(s), 0 Refill(s), Start Date: 09/04/16 17:56:00 KEYCASE ASSEMBLER, [facility]acy: [facility] [place] [place] Start Date: 09/04/16 Stop Date: 09/21/16 Status: CompletedDitropan 5 mg oral tablet 1 tab(s), Oral, q12hr, PRN bladder spasm, cramping, severe stent pain, # 30 tab( s), 1 Refill(s), Start Date: 09/04/16 17:57:00 KEYCASE ASSEMBLER, [facility] [facility] Start Date: 09/04/16 Status: Orderedfluconazole 200 mg oral tablet 2 tab(s), Oral, Daily, # 28 tab(s), 0 Refill(s), Start Date: 10/07/16 9:54:00 KEYCASE ASSEMBLER, [facility] Start Date: 10/07/16 Stop Date: 10/21/16 Status: OrderedHYDROcodone-acetaminophen 5mg-325mg oral tablet 1 tab(s), Oral, q6hr, # 30 tab(s), 0 Refill(s), Start Date: 09/04/16 17:57:00 KEYCASE ASSEMBLER, [facility]acy: [facility] [place] [place] Start Date: 09/04/16 Status: OrderedmetFORMIN 850 mg oral tablet 1 tab(s), Oral, BID, # 180 tab(s), 0 Refill(s), Start Date: 09/04/16 15:25:00 KEYCASE ASSEMBLER Start Date: 09/04/16 Status: OrderedMiraLax oral powder for reconstitution 17 gm=, Oral, Daily, # 527 gm, 11 Refill(s), Start Date: 10/05/16 8:44:31 KEYCASE ASSEMBLER, [facility]acy: [facility] [place] [place] Start Date: 10/05/16 Status: OrderedMiraLax oral powder for reconstitution 17 gm=, Oral, Daily, # 527 gm, 0 Refill(s), Start Date: 09/04/16 17:57:00 KEYCASE ASSEMBLER, [facility]acy: [facility] [place] [place] Start Date: 09/04/16 Stop Date: 10/05/16 Status: Completednitrofurantoin macrocrystals 100 mg oral capsule 1 cap(s), Oral, BID, Start this prescription and complete, # 28 cap(s ), 0 Refill(s), Start Date: 09/10/16 13:41:00 KEYCASE ASSEMBLER, [facility]acy: [facility] [place] [place] Special Instructions: Start this prescription and complete Start Date: 09/10/16 Stop Date: 10/07/16 Status: Discontinuednitrofurantoin macrocrystals 100 mg oral capsule 1 cap(s), Oral, Daily, Start this prescription after you've completed the 14 day treatment course, # 30 cap(s), 11 Refill(s), Start Date: 09/10/16 13:41:00 KEYCASE ASSEMBLER, [facility]acy: [facility] [place] [place] Special Instructions: Start this prescription after you've completed the 14 day treatment course Start Date: 09/10/16 Stop Date: 10/07/16 Status: DiscontinuedoxyCODONE-acetaminophen 5mg-325mg oral tablet 1 tab(s), Oral, q6hr interval, 0 Refill(s), Start Date: 09/04/16 15:25:00 KEYCASE ASSEMBLER Start Date: 09/04/16 Status: Orderedprimidone 50 mg oral tablet 1 tab(s), Oral, TID, # 90 tab(s), 0 Refill(s), Start Date: 09/21/16 9:49:00 KEYCASE ASSEMBLER Start Date: 09/21/16 Status: Orderedpropranolol 10 mg oral tablet 1 tab(s), Oral, TID, # 90 tab(s), 0 Refill(s), Start Date: 09/04/16 15:25:00 KEYCASE ASSEMBLER Start Date: 09/04/16 Status: Orderedsulfamethoxazole-trimethoprim 400 mg-80 mg oral tablet 2 tab(s), Oral, Daily, Take twice a day for 7 days then daily until completed, # 30 tab(s), 0 Refill(s), Start Date: 09/04/16 17:57:00 KEYCASE ASSEMBLER, [facility] [place] [place] Special Instructions: Take twice a day for 7 days then daily until completed Start Date: 09/04/16 Stop Date: 09/21/16 Status: Completedsulfamethoxazole-trimethoprim 800 mg-160 mg oral tablet 0 Refill(s), Start Date: 09/04/16 15:24:00 KEYCASE ASSEMBLER Start Date: 09/04/16 Stop Date: 09/04/16 Status: Discontinuedtamsulosin 0.4 mg oral capsule 1 cap(s), Oral, HS, # 30 cap(s), 6 Refill(s), Start Date: 01/01/15 15:15:00 CDT , [facility]acy: [facility] [place], [place] Start Date: 01/01/15 Stop Date: 08/07/15 Status: Completedtamsulosin 0.4 mg oral capsule 1 cap(s), Oral, HS, # 30 cap(s), 11 Refill(s), Start Date: 12/08/13 14:23:00 CDT , [facility]acy: [facility] [place], [place] Start Date: 12/08/13 Stop Date: 01/01/15 Status: Completedtamsulosin 0.4 mg oral capsule 1 cap(s), Oral, HS, # 30 cap(s), 11 Refill(s), Start Date: 08/07/15 12:22:23 KEYCASE ASSEMBLER , [facility]acy: [facility] [place], [place] Start Date: 08/07/15 Stop Date: 08/11/16 Status: Completedtamsulosin 0.4 mg oral capsule 1 cap(s), Oral, HS, # 30 cap(s), 11 Refill(s), Start Date: 08/11/16 10:56:09 KEYCASE ASSEMBLER , [facility]acy: [facility] [place], [place] Start Date: 08/11/16 Status: Ordered Results No data available for this section Immunizations No data available for this section Procedures Procedure Date Related Diagnosis Body Site Cystoscopy - SN (Bilateral)1 09/22/16 Cystoscopy - SN (Bilateral)2 09/04/16 Amputation3 Foot4 Shoulder5 Skin6 Urethral7 1auto-populated from documented surgical [id number] from documented surgical ohjc6Ctvjs lower xpp1Gdtfb htcg8spih shoulder peacsfw0cbfi gtjzp2wptvhzq dilation Social History No data available for this section Assessment and Plan No data available for this section
--- OUTSIDE RECORDS SUMMARY | 2016-12-28 15:42 | XMS REPORT | Summary of Care ---
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 Start Date: 09/10/16 Stop Date: 10/07/16 Status: DiscontinuedDiflucan 150 mg oral tablet 1 tab(s), Oral, Daily, START ON WednesdayMARCH 23, # 3 tab(s), 0 Refill(s), Start Date: 02/18/16 11:09:00 CDT, [facility] [place] [place] Special Instructions: START ON WednesdayMARCH 23 Start Date: 02/18/16 Stop Date: 09/04/16 Status: DiscontinuedDiflucan 150 mg oral tablet 1 tab(s), Oral, Daily, # 7 tab(s), 0 Refill(s), Start Date: 09/08/16 11:19:00 GARMENT TURNER, Pharmacy: [facility] [place], [place] Start Date: 09/08/16 Stop Date: 09/21/16 Status: CompletedDiflucan 150 mg oral tablet 1 tab(s), Oral, Daily, # 3 tab(s), 0 Refill(s), Start Date: 09/04/16 17:56:00 GARMENT TURNER, Pharmacy: [facility] [place] [place] Start Date: 09/04/16 Stop Date: 09/21/16 Status: CompletedDitropan 5 mg oral tablet 1 tab(s), Oral, q12hr, PRN bladder spasm, cramping, severe stent pain, # 30 tab( s), 1 Refill(s), Start Date: 09/04/16 17:57:00 GARMENT TURNER, Pharmacy: [facility] [place], [place] Start Date: 09/04/16 Status: Orderedfluconazole 200 mg oral tablet 2 tab(s), Oral, Daily, # 28 tab(s), 0 Refill(s), Start Date: 10/07/16 9:54:00 GARMENT TURNER, Pharmacy: [facility] [place], [place] Start Date: 10/07/16 Stop Date: 10/21/16 Status: OrderedHYDROcodone-acetaminophen 5mg-325mg oral tablet 1 tab(s), Oral, q6hr, # 30 tab(s), 0 Refill(s), Start Date: 09/04/16 17:57:00 GARMENT TURNER, Pharmacy: [facility] [place], [place] Start Date: 09/04/16 Status: OrderedmetFORMIN 850 mg oral tablet 1 tab(s), Oral, BID, # 180 tab(s), 0 Refill(s), Start Date: 09/04/16 15:25:00 GARMENT TURNER Start Date: 09/04/16 Status: OrderedMiraLax oral powder for reconstitution 17 gm=, Oral, Daily, # 527 gm, 11 Refill(s), Start Date: 10/05/16 8:44:31 GARMENT TURNER, Pharmacy: [facility] [place], [place] Start Date: 10/05/16 Status: OrderedMiraLax oral powder for reconstitution 17 gm=, Oral, Daily, # 527 gm, 0 Refill(s), Start Date: 09/04/16 17:57:00 GARMENT TURNER, Pharmacy: [facility] [place] Start Date: 09/04/16 Stop Date: 10/05/16 Status: Completednitrofurantoin macrocrystals 100 mg oral capsule 1 cap(s), Oral, BID, Start this prescription and complete, # 28 cap(s ), 0 Refill(s), Start Date: 09/10/16 13:41:00 GARMENT TURNER, Pharmacy: [facility] [place], [place] Special Instructions: Start this prescription and complete Start Date: 09/10/16 Stop Date: 10/07/16 Status: Discontinuednitrofurantoin macrocrystals 100 mg oral capsule 1 cap(s), Oral, Daily, Start this prescription after you've completed the 14 day treatment course, # 30 cap(s), 11 Refill(s), Start Date: 09/10/16 13:41:00 GARMENT TURNER, Pharmacy: [facility] [place], [place] Special Instructions: Start this prescription after you've completed the 14 day treatment course Start Date: 09/10/16 Stop Date: 10/07/16 Status: DiscontinuedoxyCODONE-acetaminophen 5mg-325mg oral tablet 1 tab(s), Oral, q6hr interval, 0 Refill(s), Start Date: 09/04/16 15:25:00 GARMENT TURNER Start Date: 09/04/16 Status: Orderedprimidone 50 mg oral tablet 1 tab(s), Oral, TID, # 90 tab(s), 0 Refill(s), Start Date: 09/21/16 9:49:00 GARMENT TURNER Start Date: 09/21/16 Status: Orderedpropranolol 10 mg oral tablet 1 tab(s), Oral, TID, # 90 tab(s), 0 Refill(s), Start Date: 09/04/16 15:25:00 GARMENT TURNER Start Date: 09/04/16 Status: Orderedsulfamethoxazole-trimethoprim 400 mg-80 mg oral tablet 2 tab(s), Oral, Daily, Take twice a day for 7 days then daily until completed, # 30 tab(s), 0 Refill(s), Start Date: 09/04/16 17:57:00 GARMENT TURNER, Pharmacy: [facility] [place], [place] Special Instructions: Take twice a day for 7 days then daily until completed Start Date: 09/04/16 Stop Date: 09/21/16 Status: Completedsulfamethoxazole-trimethoprim 800 mg-160 mg oral tablet 0 Refill(s), Start Date: 09/04/16 15:24:00 GARMENT TURNER Start Date: 09/04/16 Stop Date: 09/04/16 Status: Discontinuedtamsulosin 0.4 mg oral capsule 1 cap(s), Oral, HS, # 30 cap(s), 6 Refill(s), Start Date: 01/01/15 15:15:00 CDT , Pharmacy: [facility] [place], [place] Start Date: 01/01/15 Stop Date: 08/07/15 Status: Completedtamsulosin 0.4 mg oral capsule 1 cap(s), Oral, HS, # 30 cap(s), 11 Refill(s), Start Date: 12/08/13 14:23:00 CDT , Pharmacy: [facility] [place], [place] Start Date: 12/08/13 Stop Date: 01/01/15 Status: Completedtamsulosin 0.4 mg oral capsule 1 cap(s), Oral, HS, # 30 cap(s), 11 Refill(s), Start Date: 08/07/15 12:22:23 GARMENT TURNER , Pharmacy: [facility] [place], [place] Start Date: 08/07/15 Stop Date: 08/11/16 Status: Completedtamsulosin 0.4 mg oral capsule 1 cap(s), Oral, HS, # 30 cap(s), 11 Refill(s), Start Date: 08/11/16 10:56:09 GARMENT TURNER , Pharmacy: [facility] [place], [place] Start Date: 08/11/16 Status: Ordered Results No data available for this section Immunizations No data available for this section Procedures Procedure Date Related Diagnosis Body Site Cystoscopy - SN (Bilateral)1 09/22/16 Cystoscopy - SN (Bilateral)2 09/04/16 Amputation3 Foot4 Shoulder5 Skin6 Urethral7 1auto-populated from documented surgical [id number] from documented surgical judw6Ybxyr lower mzb8Iibum rvmp6uuul shoulder sfjzphz2npug drxky1hfkifep dilation Social History No data available for this section Assessment and Plan No data available for this section
--- OUTSIDE RECORDS SUMMARY | 2016-12-28 15:42 | XMS REPORT | Summary of Care ---
:1950 Author Organization [facility] Address [address] [place] [id number]- Care Team Providers Name Role Phone Carlos Luo Primary Care Physician Encounter Date(s): 10/01/16 - 10/01/[address] [address] Discharge Disposition: Discharged to Home or Self Care Attending Physician: Jovan Hamlin MD Admitting Physician: Jovan Hamlin MD Vital Signs No [...] 0 Refill( s), Start Date: 09/10/16 13:41:00 MAIL READER, Pharmacy: [place], [place] Special Instructions: start this prescription . Start Date: 09/10/16 Stop Date: 09/13/16 Status: OrderedDiflucan 150 mg oral tablet 1 tab(s), Oral, Daily, START ON WednesdayMARCH 23, # 3 tab(s), 0 Refill(s), Start Date: 02/18/16 11:09:00 CDT, Pharmacy: [place], [place] Special Instructions: START ON WednesdayMARCH 23 Start Date: 02/18/16 Stop Date: 09/04/16 Status: DiscontinuedDiflucan 150 mg oral tablet 1 tab(s), Oral, Daily, # 7 tab(s), 0 Refill(s), Start Date: 09/08/16 11:19:00 MAIL READER, [facility] [facility] Start Date: 09/08/16 Stop Date: 09/21/16 Status: CompletedDiflucan 150 mg oral tablet 1 tab(s), Oral, Daily, # 3 tab(s), 0 Refill(s), Start Date: 09/04/16 17:56:00 MAIL READER, [facility] [facility] Start Date: 09/04/16 Stop Date: 09/21/16 Status: CompletedDitropan 5 mg oral tablet 1 tab(s), Oral, q12hr, PRN bladder spasm, cramping, severe stent pain, # 30 tab( s), 1 Refill(s), Start Date: 09/04/16 17:57:00 MAIL READER, [place] [facility] [place] Start Date: 09/04/16 Status: OrderedHYDROcodone-acetaminophen 5mg-325mg oral tablet 1 tab(s), Oral, q6hr, # 30 tab(s), 0 Refill(s), Start Date: 09/04/16 17:57:00 MAIL READER, Pharmacy: [facility] [place], [place] Start Date: 09/04/16 Status: OrderedmetFORMIN 850 mg oral tablet 1 tab(s), Oral, BID, # 180 tab(s), 0 Refill(s), Start Date: 09/04/16 15:25:00 MAIL READER Start Date: 09/04/16 Status: OrderedMiraLax oral powder for reconstitution 17 gm=, Oral, Daily, # 527 gm, 0 Refill(s), Start Date: 09/04/16 17:57:00 MAIL READER, [facility] [facility] Start Date: 09/04/16 Status: Orderednitrofurantoin macrocrystals 100 mg oral capsule 1 cap(s), Oral, BID, Start this prescription and complete, # 28 cap(s ), 0 Refill(s), Start Date: 09/10/16 13:41:00 MAIL READER, Pharmacy: [facility] [place], [place] Special Instructions: Start this prescription and complete Start Date: 09/10/16 Stop Date: 09/24/16 Status: Orderednitrofurantoin macrocrystals 100 mg oral capsule 1 cap(s), Oral, Daily, Start this prescription after you've completed the 14 day treatment course, # 30 cap(s), 11 Refill(s), Start Date: 09/10/16 13:41:00 MAIL READER, Pharmacy: [facility] [place], [place] Special Instructions: Start this prescription after you've completed the 14 day treatment course Start Date: 09/10/16 Status: OrderedoxyCODONE-acetaminophen 5mg-325mg oral tablet 1 tab(s), Oral, q6hr interval, 0 Refill(s), Start Date: 09/04/16 15:25:00 MAIL READER Start Date: 09/04/16 Status: Orderedprimidone 50 mg oral tablet 1 tab(s), Oral, TID, # 90 tab(s), 0 Refill(s), Start Date: 09/21/16 9:49:00 MAIL READER Start Date: 09/21/16 Status: Orderedpropranolol 10 mg oral tablet 1 tab(s), Oral, TID, # 90 tab(s), 0 Refill(s), Start Date: 09/04/16 15:25:00 MAIL READER Start Date: 09/04/16 Status: Orderedsulfamethoxazole-trimethoprim 400 mg-80 mg oral tablet 2 tab(s), Oral, Daily, Take twice a day for 7 days then daily until completed, # 30 tab(s), 0 Refill(s), Start Date: 09/04/16 17:57:00 MAIL READER, Pharmacy: [facility] [place], [place] Special Instructions: Take twice a day for 7 days then daily until completed Start Date: 09/04/16 Stop Date: 09/21/16 Status: Completedsulfamethoxazole-trimethoprim 800 mg-160 mg oral tablet 0 Refill(s), Start Date: 09/04/16 15:24:00 MAIL READER Start Date: 09/04/16 Stop Date: 09/04/16 Status: Discontinuedtamsulosin 0.4 mg oral capsule 1 cap(s), Oral, HS, # 30 cap(s), 6 Refill(s), Start Date: 01/01/15 15:15:00 CDT , Pharmacy: [facility] [place], [place] Start Date: 01/01/15 Stop Date: 08/07/15 Status: Completedtamsulosin 0.4 mg oral capsule 1 cap(s), Oral, HS, # 30 cap(s), 11 Refill(s), Start Date: 12/08/13 14:23:00 CDT , [facility] [facility] Start Date: 12/08/13 Stop Date: 01/01/15 Status: Completedtamsulosin 0.4 mg oral capsule 1 cap(s), Oral, HS, # 30 cap(s), 11 Refill(s), Start Date: 08/07/15 12:22:23 MAIL READER , Pharmacy: [facility] [place], [place] Start Date: 08/07/15 Stop Date: 08/11/16 Status: Completedtamsulosin 0.4 mg oral capsule 1 cap(s), Oral, HS, # 30 cap(s), 11 Refill(s), Start Date: 08/11/16 10:56:09 MAIL READER , Pharmacy: [facility] [place], [place] Start Date: 08/11/16 Status: Ordered Results Patient Viewable Results Most recent to oldest [Reference Range]: 1 Sodium Lvl [135-144 mEq/L] 140 mEq/L (10/01/16 9:03 AM) Potassium Lvl [3.3-4.8 mEq/L] 4.5 mEq/L (10/01/16 9:03 AM) Chloride Lvl [98-107 mEq/L] 100 mEq/L (10/01/16 9:03 AM) Bicarbonate Lvl [22-30 mmol/L] 30 mmol/L (10/01/16 9:03 AM) Anion Gap [10.0-20.0] 14.5 (10/01/16 9:03 AM) Glucose Lvl [70-108 mg/dL] 111 mg/dL *HI* (10/01/16 9:03 AM) BUN [7-21 mg/dL] 10 mg/dL (10/01/16 9:03 AM) Creatinine Lvl [0.50-1.20 mg/dL] 0.55 mg/dL (10/01/16 9:03 AM) BUN/Creat Ratio 18.2 *NA* (10/01/16 9:03 AM) eGFR AA [>=60] >60 (10/01/16 9:03 AM) eGFR ELLIS [>=60] >60 (10/01/16 9:03 AM) Calcium Lvl [8.6-10.2 mg/dL] 8.8 mg/dL (10/01/16 9:03 AM) Estimated Creatinine Clearance 163.38 mL/min (10/01/16 10:00 AM) UA Color Yellow *NA* (10/01/16 8:55 AM) Urine Clarity Hazy *NA* (10/01/16 8:55 AM) Specific [place] [1.000-1.060] 1.015 (10/01/16 8:55 AM) Urine pH [5-8] 6 (10/01/16 8:55 AM) Ketones Negative (10/01/16 8:55 AM) Bilirubin [Negative] Negative (10/01/16 8:55 AM) Urine Protein [Negative] 2+ *ABN* (10/01/16 8:55 AM) Glucose [Negative] Negative (10/01/16 8:55 AM) Urine HGB [Negative] 2+ *ABN* (10/01/16 8:55 AM) Urobilinogen <2.0 *NA* (10/01/16 8:55 AM) Nitrite [Negative] Negative (10/01/16 8:55 AM) Leuk Esterase [Negative] 2+ *ABN* (10/01/16 8:55 AM) UA Ascorbic Acid [Negative] Negative (10/01/16 8:55 AM) Urine WBC [0-5] >50 *ABN* (10/01/16 8:55 AM) Urine RBC [0-2] >50 *ABN* (10/01/16 8:55 AM) Squamous Epi [0-5] 0-5 (10/01/16 8:55 AM) Mucus Trace (10/01/16 8:55 AM) Hyaline Casts 0-2 (10/01/16 8:55 AM) Yeast 1+ *ABN* (10/01/16 8:55 AM) Immunizations No data available for this section Procedures Procedure Date Related Diagnosis Body Site Cystoscopy - SN (Bilateral)1 09/22/16 Cystoscopy - SN (Bilateral)2 09/04/16 Amputation3 Foot4 Shoulder5 Skin6 Urethral7 1auto-populated from documented surgical [id number] from documented surgical wxac9Ywtgn lower qvd6Qwwhh obko5ovur shoulder ubyihdn8tcte pxcze7hvnuczi dilation Social History No data available for this section Assessment and Plan No data available for this section
--- OUTSIDE RECORDS SUMMARY | 2016-12-28 15:42 | XMS REPORT | Summary of Care ---
:1950 Author Organization [facility] Address [address] [facility] [place] [address] Care Team Providers Name Role Phone Carlos Luo Demetria Primary Care Physician Encounter Date(s): [facility]/13/16 [facility] [address] [place], [place] [address] Discharge Diagnosis: Fungus present in urine Discharge Diagnosis: Other urethral stricture Discharge Diagnosis: Other hydronephrosis Discharge Diagnosis: Encounter for screening for malignant neoplasm of prostate Discharge Disposition: Discharged to Home or Self Care Attending Physician: Jovan Hamlin MD Referring Physician: Jovan Hamlin MD Vital Signs Most recent to oldest [Reference Range]: 1 Blood Pressure [90-130/60-90 mmHg] 118/72mmHg (10/13/16 9:38 AM) Mean Arterial Pressure, Cuff 87 mmHg (10/13/16 9:38 AM) Most recent to oldest [Reference Range]: 1 Weight Dosing 96.1 kg (10/13/16 9:38 AM) Problem List Condition Effective Dates Status Health Status Informant 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 Start Date: 09/10/16 Stop Date: 10/07/16 Status: DiscontinuedDiflucan 150 mg oral tablet 1 tab(s), Oral, Daily, START ON WednesdayMARCH 23, # 3 tab(s), 0 Refill(s), Start Date: 02/18/16 11:09:00 CDT, [place] [facility] [place] Special Instructions: START ON WednesdayMARCH 23 Start Date: 02/18/16 Stop Date: 09/04/16 Status: DiscontinuedDiflucan 150 mg oral tablet 1 tab(s), Oral, Daily, # 7 tab(s), 0 Refill(s), Start Date: 09/08/16 11:19:00 DISPLAY MAKER, Pharmacy: [facility] [place], [place] Start Date: 09/08/16 Stop Date: 09/21/16 Status: CompletedDiflucan 150 mg oral tablet 1 tab(s), Oral, Daily, # 3 tab(s), 0 Refill(s), Start Date: 09/04/16 17:56:00 DISPLAY MAKER, [facility] [facility] [place] Start Date: 09/04/16 Stop Date: 09/21/16 Status: CompletedDitropan 5 mg oral tablet 1 tab(s), Oral, q12hr, PRN bladder spasm, cramping, severe stent pain, # 30 tab( s), 1 Refill(s), Start Date: 09/04/16 17:57:00 DISPLAY MAKER, Pharmacy: [facility] [place], [place] Start Date: 09/04/16 Status: Orderedfluconazole 200 mg oral tablet 2 tab(s), Oral, Daily, # 28 tab(s), 0 Refill(s), Start Date: 10/07/16 9:54:00 DISPLAY MAKER, Pharmacy: [facility] [place], [place] Start Date: 10/07/16 Stop Date: 10/21/16 Status: OrderedHYDROcodone-acetaminophen 5mg-325mg oral tablet 1 tab(s), Oral, q6hr, # 30 tab(s), 0 Refill(s), Start Date: 09/04/16 17:57:00 DISPLAY MAKER, Pharmacy: [facility] [place], [place] Start Date: 09/04/16 Status: OrderedmetFORMIN 850 mg oral tablet 1 tab(s), Oral, BID, # 180 tab(s), 0 Refill(s), Start Date: 09/04/16 15:25:00 DISPLAY MAKER Start Date: 09/04/16 Status: OrderedMiraLax oral powder for reconstitution 17 gm=, Oral, Daily, # 527 gm, 11 Refill(s), Start Date: 10/05/16 8:44:31 DISPLAY MAKER, Pharmacy: [facility] [place], [place] Start Date: 10/05/16 Status: OrderedMiraLax oral powder for reconstitution 17 gm=, Oral, Daily, # 527 gm, 0 Refill(s), Start Date: 09/04/16 17:57:00 DISPLAY MAKER, Pharmacy: [facility] [place], [place] Start Date: 09/04/16 Stop Date: 10/05/16 Status: Completednitrofurantoin macrocrystals 100 mg oral capsule 1 cap(s), Oral, BID, Start this prescription and complete, # 28 cap(s ), 0 Refill(s), Start Date: 09/10/16 13:41:00 DISPLAY MAKER, [facility] [place] [place] Special Instructions: Start this prescription and complete Start Date: 09/10/16 Stop Date: 10/07/16 Status: Discontinuednitrofurantoin macrocrystals 100 mg oral capsule 1 cap(s), Oral, Daily, Start this prescription after you've completed the 14 day treatment course, # 30 cap(s), 11 Refill(s), Start Date: 09/10/16 13:41:00 DISPLAY MAKER, Pharmacy: [facility] [place], [place] Special Instructions: Start this prescription after you've completed the 14 day treatment course Start Date: 09/10/16 Stop Date: 10/07/16 Status: DiscontinuedoxyCODONE-acetaminophen 5mg-325mg oral tablet 1 tab(s), Oral, q6hr interval, 0 Refill(s), Start Date: 09/04/16 15:25:00 DISPLAY MAKER Start Date: 09/04/16 Status: Orderedprimidone 50 mg oral tablet 1 tab(s), Oral, TID, # 90 tab(s), 0 Refill(s), Start Date: 09/21/16 9:49:00 DISPLAY MAKER Start Date: 09/21/16 Status: Orderedpropranolol 10 mg oral tablet 1 tab(s), Oral, TID, # 90 tab(s), 0 Refill(s), Start Date: 09/04/16 15:25:00 DISPLAY MAKER Start Date: 09/04/16 Status: Orderedsulfamethoxazole-trimethoprim 400 mg-80 mg oral tablet 2 tab(s), Oral, Daily, Take twice a day for 7 days then daily until completed, # 30 tab(s), 0 Refill(s), Start Date: 09/04/16 17:57:00 DISPLAY MAKER, Pharmacy: [facility] [place], [place] Special Instructions: Take twice a day for 7 days then daily until completed Start Date: 09/04/16 Stop Date: 09/21/16 Status: Completedsulfamethoxazole-trimethoprim 800 mg-160 mg oral tablet 0 Refill(s), Start Date: 09/04/16 15:24:00 DISPLAY MAKER Start Date: 09/04/16 Stop Date: 09/04/16 Status: Discontinuedtamsulosin 0.4 mg oral capsule 1 cap(s), Oral, HS, # 30 cap(s), 6 Refill(s), Start Date: 01/01/15 15:15:00 CDT , Pharmacy: [facility] [place], [place] Start Date: 01/01/15 Stop Date: 08/07/15 Status: Completedtamsulosin 0.4 mg oral capsule 1 cap(s), Oral, HS, # 30 cap(s), 11 Refill(s), Start Date: 12/08/13 14:23:00 CDT , Pharmacy: [facility] [place] [place] Start Date: 12/08/13 Stop Date: 01/01/15 Status: Completedtamsulosin 0.4 mg oral capsule 1 cap(s), Oral, HS, # 30 cap(s), 11 Refill(s), Start Date: 08/07/15 12:22:23 DISPLAY MAKER , Pharmacy: [facility] [place] [place] Start Date: 08/07/15 Stop Date: 08/11/16 Status: Completedtamsulosin 0.4 mg oral capsule 1 cap(s), Oral, HS, # 30 cap(s), 11 Refill(s), Start Date: 08/11/16 10:56:09 DISPLAY MAKER , [place] Start Date: 08/11/16 Status: Ordered Results No data available for this section Immunizations No data available for this section Procedures Procedure Date Related Diagnosis Body Site Cystoscopy - SN (Bilateral)1 09/22/16 Cystoscopy - SN (Bilateral)2 09/04/16 Amputation3 Foot4 Shoulder5 Skin6 Urethral7 1auto-populated from documented surgical [id number] from documented surgical ycya6Odsbt lower evz6Ltdtn ocna6kuqt shoulder pxjhexe2nogu whelc4tyhojsw dilation Social History No data available for this section Assessment and Plan No data available for this section
--- OUTSIDE RECORDS SUMMARY | 2016-12-28 15:42 | XMS REPORT | Summary of Care ---
:[address] [facility] Address [address] [place] [id number] Care Team Providers Name Role Phone Carlos Luo Primary Care Physician Encounter Date(s): 09/21/16 - 09/21/[address] [id number] Discharge Disposition: Discharged to Home or Self Care Attending Physician: Micheal Deal MD Vital Signs No data available for [...] 0 Refill( s), Start Date: 09/10/16 13:41:00 ELEVATOR STARTER, [facility]acy: [facility] [place] [place] Start Date: 09/10/16 Stop Date: 09/13/16 Status: OrderedDiflucan 150 mg oral tablet 1 tab(s), Oral, Daily, START ON WednesdayMARCH 23, # 3 tab(s), 0 Refill(s), Start Date: 02/18/16 11:09:00 CDT, [facility]acy: [facility] [place] [place] Start Date: 02/18/16 Stop Date: 09/04/16 Status: DiscontinuedDiflucan 150 mg oral tablet 1 tab(s), Oral, Daily, # 7 tab(s), 0 Refill(s), Start Date: 09/08/16 11:19:00 ELEVATOR STARTER, [facility] [place] Start Date: 09/08/16 Stop Date: 09/21/16 Status: CompletedDiflucan 150 mg oral tablet 1 tab(s), Oral, Daily, # 3 tab(s), 0 Refill(s), Start Date: 09/04/16 17:56:00 ELEVATOR STARTER, [facility]acy: [facility] [place] [place] Start Date: 09/04/16 Stop Date: 09/21/16 Status: CompletedDitropan 5 mg oral tablet 1 tab(s), Oral, q12hr, PRN bladder spasm, cramping, severe stent pain, # 30 tab( s), 1 Refill(s), Start Date: 09/04/16 17:57:00 ELEVATOR STARTER, [facility] Start Date: 09/04/16 Status: OrderedHYDROcodone-acetaminophen 5mg-325mg oral tablet 1 tab(s), Oral, q6hr, # 30 tab(s), 0 Refill(s), Start Date: 09/04/16 17:57:00 ELEVATOR STARTER, [facility]acy: [facility] [place] [place] Start Date: 09/04/16 Status: OrderedmetFORMIN 850 mg oral tablet 1 tab(s), Oral, BID, # 180 tab(s), 0 Refill(s), Start Date: 09/04/16 15:25:00 ELEVATOR STARTER Start Date: 09/04/16 Status: OrderedMiraLax oral powder for reconstitution 17 gm=, Oral, Daily, # 527 gm, 0 Refill(s), Start Date: 09/04/16 17:57:00 ELEVATOR STARTER, [facility]acy: [facility] [place] [place] Start Date: 09/04/16 Status: Orderednitrofurantoin macrocrystals 100 mg oral capsule 1 cap(s), Oral, BID, Start this prescription and complete, # 28 cap(s ), 0 Refill(s), Start Date: 09/10/16 13:41:00 ELEVATOR STARTER, [facility] [place] Start Date: 09/10/16 Stop Date: 09/24/16 Status: Orderednitrofurantoin macrocrystals 100 mg oral capsule 1 cap(s), Oral, Daily, Start this prescription after you've completed the 14 day treatment course, # 30 cap(s), 11 Refill(s), Start Date: 09/10/16 13:41:00 ELEVATOR STARTER, [facility]acy: [facility] [place] [place] Start Date: 09/10/16 Status: OrderedoxyCODONE-acetaminophen 5mg-325mg oral tablet 1 tab(s), Oral, q6hr interval, 0 Refill(s), Start Date: 09/04/16 15:25:00 ELEVATOR STARTER Start Date: 09/04/16 Status: Orderedprimidone 50 mg oral tablet 1 tab(s), Oral, TID, # 90 tab(s), 0 Refill(s), Start Date: 09/21/16 9:49:00 ELEVATOR STARTER Start Date: 09/21/16 Status: Orderedpropranolol 10 mg oral tablet 1 tab(s), Oral, TID, # 90 tab(s), 0 Refill(s), Start Date: 09/04/16 15:25:00 ELEVATOR STARTER Start Date: 09/04/16 Status: Orderedsulfamethoxazole-trimethoprim 400 mg-80 mg oral tablet 2 tab(s), Oral, Daily, Take twice a day for 7 days then daily until completed, # 30 tab(s), 0 Refill(s), Start Date: 09/04/16 17:57:00 ELEVATOR STARTER, [facility]acy: [facility] [place] [place] Start Date: 09/04/16 Stop Date: 09/21/16 Status: Completedsulfamethoxazole-trimethoprim 800 mg-160 mg oral tablet 0 Refill(s), Start Date: 09/04/16 15:24:00 ELEVATOR STARTER Start Date: 09/04/16 Stop Date: 09/04/16 Status: Discontinuedtamsulosin 0.4 mg oral capsule 1 cap(s), Oral, HS, # 30 cap(s), 6 Refill(s), Start Date: 01/01/15 15:15:00 CDT , [facility]acy: [facility] [place] [place] Start Date: 01/01/15 Stop Date: 08/07/15 Status: Completedtamsulosin 0.4 mg oral capsule 1 cap(s), Oral, HS, # 30 cap(s), 11 Refill(s), Start Date: 12/08/13 14:23:00 CDT , [facility] [place] [place] Start Date: 12/08/13 Stop Date: 01/01/15 Status: Completedtamsulosin 0.4 mg oral capsule 1 cap(s), Oral, HS, # 30 cap(s), 11 Refill(s), Start Date: 08/07/15 12:22:23 ELEVATOR STARTER , [facility] [place] [place] Start Date: 08/07/15 Stop Date: 08/11/16 Status: Completedtamsulosin 0.4 mg oral capsule 1 cap(s), Oral, HS, # 30 cap(s), 11 Refill(s), Start Date: 08/11/16 10:56:09 ELEVATOR STARTER , [facility] [place] Start Date: 08/11/16 Status: Ordered Results Patient Viewable Results Most recent to oldest [Reference Range]: 1 WBC [4.8-10.8 thou/mm3] 8.6 thou/mm3 (09/21/16 10:29 AM) RBC [4.60-6.00 Mil/mm3] 4.35 Mil/mm3 *LOW* (09/21/16 10:29 AM) Hgb [14.0-18.0 g/dL] 10.6 g/dL *LOW* (09/21/16 10:29 AM) Hct [42.0-52.0 %] 33.9 % *LOW* (09/21/16 10:29 AM) MCV [80.0-94.0 fL] 77.9 fL *LOW* (09/21/16 10:29 AM) MCH [25.0-38.0 pg/cell] 24.4 pg/cell *LOW* (09/21/16 10:29 AM) MCHC [31.0-37.0 g/dL] 31.3 g/dL (09/21/16 10:29 AM) RDW [1.0-48.0 fL] 48.3 fL *HI* (09/21/16 10:29 AM) Platelet [130-400 thou/mm3] 282 thou/mm3 (09/21/16 10:29 AM) Neutrophils % Auto [50.0-75.0 %] 70.0 % (09/21/16 10:29 AM) Immature Granulocyte Auto [0.1-2.0 %] 0.2 % (09/21/16 10:29 AM) Lymphocytes % Auto [15.0-41.0 %] 14.6 % *LOW* (09/21/16 10:29 AM) Monocytes % Auto [2.0-10.0 %] 10.8 % *HI* (09/21/16 10:29 AM) Eosinophils % Auto [0.0-6.0 %] 3.6 % (09/21/16 10:29 AM) Basophil % Auto [0.0-1.0 %] 0.8 % (09/21/16 10:29 AM) Neutrophils Absolute [1.5-5.9 thou/mm3] 6.0 thou/mm3 *HI* (09/21/16 10:29 AM) Immature Gran Absolute [0.01-0.03 thou/mm3] 0.02 thou/mm3 (09/21/16 10:29 AM) Lymphocytes Absolute [1.5-4.0 thou/mm3] 1.3 thou/mm3 *LOW* (09/21/16 10:29 AM) Monocytes Absolute [0.0-0.9 thou/mm3] 0.9 thou/mm3 (09/21/16 10:29 AM) Eosinophil Absolute [0.0-0.7 thou/mm3] 0.3 thou/mm3 (09/21/16 10:29 AM) Basophil Absolute [0.0-0.2 thou/mm3] 0.1 thou/mm3 (09/21/16 10:29 AM) Sodium Lvl [135-144 mEq/L] 138 mEq/L (09/21/16 10:29 AM) Potassium Lvl [3.3-4.8 mEq/L] 4.4 mEq/L (09/21/16 10:29 AM) Chloride Lvl [98-107 mEq/L] 101 mEq/L (09/21/16 10:29 AM) Bicarbonate Lvl [22-30 mmol/L] 26 mmol/L (09/21/16 10:29 AM) Anion Gap [10.0-20.0] 15.4 (09/21/16 10:29 AM) Glucose Lvl [70-108 mg/dL] 118 mg/dL *HI* (09/21/16 10:29 AM) BUN [7-21 mg/dL] 12 mg/dL (09/21/16 10:29 AM) Creatinine Lvl [0.50-1.20 mg/dL] 0.76 mg/dL (09/21/16 10:29 AM) BUN/Creat Ratio 15.8 *NA* (09/21/16 10:29 AM) eGFR AA [>=60] >60 (09/21/16 10:29 AM) eGFR ELLIS [>=60] >60 (09/21/16 10:29 AM) Calcium Lvl [8.6-10.2 mg/dL] 8.8 mg/dL (09/21/16 10:29 AM) Total Protein [6.4-8.3 g/dL] 7.0 g/dL (09/21/16 10:29 AM) Albumin Lvl [3.5-5.2 g/dL] 3.7 g/dL (09/21/16 10:29 AM) Globulin 3.3 *NA* (09/21/16 10:29 AM) A/G Ratio [0.9-1.8] 1.1 (09/21/16 10:29 AM) Bilirubin Total [0.1-1.0 mg/dL] 0.2 mg/dL (09/21/16 10:29 AM) Alkaline Phosphatase [39-129 unit/L] 101 unit/L (09/21/16 10:29 AM) AST [0-39 unit/L] 12 unit/L (09/21/16 10:29 AM) ALT [0-40 unit/L] 7 unit/L (09/21/16 10:29 AM) Estimated Creatinine Clearance 118.96 mL/min (09/21/16 11:10 AM) UA Color [Yellow] Yellow (09/21/16 10:27 AM) Urine Clarity Turbid *NA* (09/21/16 10:27 AM) Specific [place] [1.000-1.060] 1.013 (09/21/16 10:27 AM) Urine pH [5-8] 5 (09/21/16 10:27 AM) Ketones Negative (09/21/16 10:27 AM) Bilirubin [Negative] Negative (09/21/16 10:27 AM) Urine Protein [Negative] 2+ *ABN* (09/21/16 10:27 AM) Glucose [Negative] Negative (09/21/16 10:27 AM) Urine HGB [Negative] 2+ *ABN* (09/21/16 10:27 AM) Urobilinogen <2.0 *NA* (09/21/16 10:27 AM) Nitrite [Negative] Negative (09/21/16 10:27 AM) Leuk Esterase [Negative] 3+ *ABN* (09/21/16 10:27 AM) UA Ascorbic Acid [Negative] Negative (09/21/16 10:27 AM) Urine WBC [0-5] >50 *ABN* (09/21/16 10:27 AM) Urine RBC [0-2] >50 *ABN* (09/21/16 10:27 AM) Squamous Epi [0-5] None Seen (09/21/16 10:27 AM) Bacteria 2+ *ABN* (09/21/16 10:27 AM) UA WBC Clumps 11-20 *ABN* (09/21/16 10:27 AM) Immunizations No data available for this section Procedures Procedure Date Related Diagnosis Body Site Cystoscopy - SN (Bilateral)1 09/04/16 Amputation2 Foot3 Shoulder4 Skin5 Urethral6 1auto-populated from documented surgical [id number] lower dsj1Rsreo drpy7stcb shoulder [id number] [id number] dilation Social History No data available for this section Assessment and Plan No data available for this section
--- OUTSIDE RECORDS SUMMARY | 2016-12-28 15:42 | XMS REPORT | Summary of Care ---
:1950 Author Organization [facility] Address [address] [place] [address] Care Team Providers Name Role Phone Carlos Luo Demetria Primary Care Physician Encounter Date(s): 10/07/16 - 10/07/16 [facility] [address] [place], [place] [address] Discharge Diagnosis: Other urethral stricture Discharge Diagnosis: Hematospermia Discharge Diagnosis: Fungus present in urine Discharge Diagnosis: Encounter for screening for malignant neoplasm of prostate Discharge Diagnosis: Other hydronephrosis Discharge Disposition: 01 Discharged to Home or Self Care Attending Physician: Jovan Hamlin MD Referring Physician: Jovan Hamlin MD Vital Signs Most recent to oldest [Reference Range]: 1 Peripheral Pulse Rate [60-100 bpm] 66 bpm (10/07/16 8:33 AM) Blood Pressure [90-130/60-90 mmHg] 134/58mmHg *HI* (10/07/16 8:33 AM) Mean Arterial Pressure, Cuff 83 mmHg (10/07/16 8:33 AM) Most recent to oldest [Reference Range]: 1 Weight Dosing 96.1 kg (10/07/16 8:33 AM) Weight Measured 96.1 kg (10/07/16 8:33 AM) Problem List Condition Effective Dates Status [...] Refill( s), Start Date: 09/10/16 13:41:00 HAND RIVETER, [facility]acy: [facility] [place], [place] Special Instructions: start this prescription . Start Date: 09/10/16 Stop Date: 10/07/16 Status: DiscontinuedDiflucan 150 mg oral tablet 1 tab(s), Oral, Daily, START ON WednesdayMARCH 23, # 3 tab(s), 0 Refill(s), Start Date: 02/18/16 11:09:00 CDT, [place] [facility] [place] Special Instructions: START ON WednesdayMARCH 23 Start Date: 02/18/16 Stop Date: 09/04/16 Status: DiscontinuedDiflucan 150 mg oral tablet 1 tab(s), Oral, Daily, # 7 tab(s), 0 Refill(s), Start Date: 09/08/16 11:19:00 HAND RIVETER, [place] [facility] [place] Start Date: 09/08/16 Stop Date: 09/21/16 Status: CompletedDiflucan 150 mg oral tablet 1 tab(s), Oral, Daily, # 3 tab(s), 0 Refill(s), Start Date: 09/04/16 17:56:00 HAND RIVETER, [facility]acy: [facility] [place] [place] Start Date: 09/04/16 Stop Date: 09/21/16 Status: CompletedDitropan 5 mg oral tablet 1 tab(s), Oral, q12hr, PRN bladder spasm, cramping, severe stent pain, # 30 tab( s), 1 Refill(s), Start Date: 09/04/16 17:57:00 HAND RIVETER, [facility] [facility] [place] Start Date: 09/04/16 Status: Orderedfluconazole 200 mg oral tablet 2 tab(s), Oral, Daily, # 28 tab(s), 0 Refill(s), Start Date: 10/07/16 9:54:00 HAND RIVETER, [facility] [facility] [place] Start Date: 10/07/16 Stop Date: 10/21/16 Status: OrderedHYDROcodone-acetaminophen 5mg-325mg oral tablet 1 tab(s), Oral, q6hr, # 30 tab(s), 0 Refill(s), Start Date: 09/04/16 17:57:00 HAND RIVETER, [facility]acy: [facility] [place] Start Date: 09/04/16 Status: OrderedmetFORMIN 850 mg oral tablet 1 tab(s), Oral, BID, # 180 tab(s), 0 Refill(s), Start Date: 09/04/16 15:25:00 HAND RIVETER Start Date: 09/04/16 Status: OrderedMiraLax oral powder for reconstitution 17 gm=, Oral, Daily, # 527 gm, 11 Refill(s), Start Date: 10/05/16 8:44:31 HAND RIVETER, [facility]acy: [facility] [place] Start Date: 10/05/16 Status: OrderedMiraLax oral powder for reconstitution 17 gm=, Oral, Daily, # 527 gm, 0 Refill(s), Start Date: 09/04/16 17:57:00 HAND RIVETER, [facility]acy: [facility] [place] Start Date: 09/04/16 Stop Date: 10/05/16 Status: Completednitrofurantoin macrocrystals 100 mg oral capsule 1 cap(s), Oral, BID, Start this prescription and complete, # 28 cap(s ), 0 Refill(s), Start Date: 09/10/16 13:41:00 HAND RIVETER, [facility]acy: [facility] [place] [place] Special Instructions: Start this prescription and complete Start Date: 09/10/16 Stop Date: 10/07/16 Status: Discontinuednitrofurantoin macrocrystals 100 mg oral capsule 1 cap(s), Oral, Daily, Start this prescription after you've completed the 14 day treatment course, # 30 cap(s), 11 Refill(s), Start Date: 09/10/16 13:41:00 HAND RIVETER, [facility]acy: [facility] [place], [place] Special Instructions: Start this prescription after you've completed the 14 day treatment course Start Date: 09/10/16 Stop Date: 10/07/16 Status: DiscontinuedoxyCODONE-acetaminophen 5mg-325mg oral tablet 1 tab(s), Oral, q6hr interval, 0 Refill(s), Start Date: 09/04/16 15:25:00 HAND RIVETER Start Date: 09/04/16 Status: Orderedprimidone 50 mg oral tablet 1 tab(s), Oral, TID, # 90 tab(s), 0 Refill(s), Start Date: 09/21/16 9:49:00 HAND RIVETER Start Date: 09/21/16 Status: Orderedpropranolol 10 mg oral tablet 1 tab(s), Oral, TID, # 90 tab(s), 0 Refill(s), Start Date: 09/04/16 15:25:00 HAND RIVETER Start Date: 09/04/16 Status: Orderedsulfamethoxazole-trimethoprim 400 mg-80 mg oral tablet 2 tab(s), Oral, Daily, Take twice a day for 7 days then daily until completed, # 30 tab(s), 0 Refill(s), Start Date: 09/04/16 17:57:00 HAND RIVETER, Pharmacy: [facility] [place], [place] Special Instructions: Take twice a day for 7 days then daily until completed Start Date: 09/04/16 Stop Date: 09/21/16 Status: Completedsulfamethoxazole-trimethoprim 800 mg-160 mg oral tablet 0 Refill(s), Start Date: 09/04/16 15:24:00 HAND RIVETER Start Date: 09/04/16 Stop Date: 09/04/16 Status: Discontinuedtamsulosin 0.4 mg oral capsule 1 cap(s), Oral, HS, # 30 cap(s), 6 Refill(s), Start Date: 01/01/15 15:15:00 CDT , [facility]acy: [facility] [place] [place] Start Date: 01/01/15 Stop Date: 08/07/15 Status: Completedtamsulosin 0.4 mg oral capsule 1 cap(s), Oral, HS, # 30 cap(s), 11 Refill(s), Start Date: 12/08/13 14:23:00 CDT , [facility]acy: [facility] [place] [place] Start Date: 12/08/13 Stop Date: 01/01/15 Status: Completedtamsulosin 0.4 mg oral capsule 1 cap(s), Oral, HS, # 30 cap(s), 11 Refill(s), Start Date: 08/07/15 12:22:23 HAND RIVETER , [facility]acy: [facility] [place] [place] Start Date: 08/07/15 Stop Date: 08/11/16 Status: Completedtamsulosin 0.4 mg oral capsule 1 cap(s), Oral, HS, # 30 cap(s), 11 Refill(s), Start Date: 08/11/16 10:56:09 HAND RIVETER , [facility]acy: [facility] [place] [place] Start Date: 08/11/16 Status: Ordered Results No data available for this section Immunizations No data available for this section Procedures Procedure Date Related Diagnosis Body Site Cystoscopy - SN (Bilateral)1 09/22/16 Cystoscopy - SN (Bilateral)2 09/04/16 Amputation3 Foot4 Shoulder5 Skin6 Urethral7 1auto-populated from documented surgical [id number] from documented surgical hyma8Jionn lower bfs6Gdlrl lodl1nkve shoulder [id number] [id number] dilation Social History No data available for this section Assessment and Plan No data available for this section
== END 2016-12-28 15:36 | disposition home or self-care (01) ==
LOC: ER 15:26
DX: Z48.02 Encounter for removal of sutures (principal)

== ENCOUNTER 2017-01-30 16:53 | Emergency (ER) | payer MEDICARE, OTHER ==
[2017-01-30 17:02] VITALS: BP 121/70
--- NOTE | 2017-01-30 17:08 | ERNOTE ---
Medical Problem HPI - General Time Seen by Provider: 01/30/17 16:57 Source: patient Exam Limitations: no limitations - Immun/Allergies/Home Medications Immunizations: IMMUNIZATION HX Immunizations Up to Date Yes History of Influenza Vaccine No Hx Pneumococcal Vaccination No Allergies/Adverse Reactions: Allergies Influenza Virus Vaccines Adverse Reaction (Verified 09/08/16 18:07) Vomiting Home Medications: HOME MEDICATIONS Tamsulosin HCl [Flomax] 0.4 mg PO HS 11/07/13 [Last Taken Unknown] Blood Sugar Diagnostic, Drum [Accu-Chek Compact] 1 each MC DAILY 01/08/15 [Last Taken Unknown] Primidone [Mysoline] 150 mg PO TID 01/08/15 [Last Taken 09/08/16] Doxycycline Monohydrate 100 mg PO BID #28 tablet 01/30/17 [Last Taken Unknown] - History of Present History Narrative: pt complains of an insect bite to right knee. This happened in the field this morning prior to presentation to ED. He did not take any medicine for this. Denies fevers, chills or body aches Review of Systems - Review of Systems Constitutional: Present: no symptoms reported EYE: Present: no symptoms reported ENT: Present: no symptoms reported Respiratory: Present: no symptoms reported Gastrointestinal/Abdominal: Present: no symptoms reported Genitourinary: Present: no symptoms reported Musculoskeletal: Present: no symptoms reported Skin: Present: rash - round, target like lesion on anterior surface of right knee. There appears to be a central vesicle in the middle of this rash with a puncture flip central to that. No tick noted anywhere near lesion but this appears to be a typical target like rash of Tick bite - Patient's Past Medical History Patient History - Medical: Chronic Pain, Diabetes Type 2, Kidney stone, Osteoarthritis, Other Patient History - Cardiac/Respiratory: Hypertension Patient History - Cancer: No Hx of Cancer Patient History - Surgical Procedures: Amputation, Gastric Bypass, Total Knee Replacement Patient History - Other: None - Family History Mother Family History - Medical: , Diabetes Type 2 Family History - Cardiac/Respiratory: No pertinent hx Father Family History - Medical: Family History - Cardiac/Respiratory: Coronary Heart Disease, COPD Grandmother-Paternal Family History - Medical: , Diabetes Type 2 Family History - Cardiac/Respiratory: No pertinent hx Grandmother-Maternal Family History - Medical: , Diabetes Type 2 Family History - Cardiac/Respiratory: No pertinent hx - Social History Living Situations: home Abuse History: No History of abuse Psych History: No pertinent hx Alcohol Use: rarely Drug Use: none - Immunizations Immunizations Up to Date: Yes Hx Pneumococcal Vaccination: No History of Influenza Vaccine: No Physical Exam - Physical Exam General Appearance: Present: wd/wn, alert, no apparent distress Ears, Nose, Throat: Present: normal ENT inspection Neck: Present: normal inspection, nontender, supple Respiratory: Present: no respiratory distress, normal breath sounds, no accessory muscle use, chest nontender, lungs clear Cardiovascular/Chest: Present: regular rate, rhythm, no murmur, normal peripheral pulses Extremity Exam: Present: normal inspection - patient's left lower extremity is within normal limits he is at [id number] amputee on the right side. Neurological Exam: Present: alert, oriented, normal mood/affect, no motor/ sensory deficits Skin Exam: Present: other - and has a typical target-like lesion of a tick bite with a central vesicle and a central puncture wound to that. Is on the patient' s right patellar surface. No ticks noted anywhere on this patient ED Progress - Vital Signs Patient's Vital Signs:: I have reviewed the patient's vital signs. Plan - Plan Plan: While a definite tick was not observed on this patient anywhere near the rash the rash is classic for a tick bite. This patient will be treated as such with doxycycline. Departure - Departure Clinical Impression: Tick bite Qualifiers: Encounter type: initial encounter Qualified Code(s): W57.XXXA - Bitten or stung by nonvenomous insect and other nonvenomous arthropods, initial encounter Clinical Impression: (Ruled Out): Diabetes mellitus Disposition: Home Follow Up Needed Condition: Good Instructions: Preventing Mosquito-Borne Illnesses Prescriptions: Doxycycline Monohydrate 100 mg PO BID #28 tablet
--- OUTSIDE RECORDS SUMMARY | 2017-01-30 17:19 | XMS REPORT | Continuity of Care Document ---
:1950 Author Organization [facility] ([facility]) Address [address] [place] [address] Phone [phone] Care Team Providers Name Role Phone Carlos Luo Primary Care Provider [phone] Source Comments This disclosure is being made pursuant to the Care Everywhere program, applicable federal and state laws, and may not contain all informaitonavailable regarding this patient.[facility] ([facility]) Active Allergies and Adverse Reactions No Known Allergies Current Medications Prescription Sig. Disp. Refills Start Date End Date Status tamsulosin 0.4 mg Take 0.4 mg by Active ER capsule mouth at bedtime. sildenafil Take 1 Tab (100 6 Tab 11 03/12/2015 Active (VIAGRA) 100 mg mg total) by tablet mouth as needed Take 1 hour prior to sexual activity. bacitracin topical Apply topically 15 g 11 12/16/2016 Active ointment 3 times daily. sennosides 8.6 mg Take 1-2 60 tablet 10 12/16/2016 Active tablet tablets (8.6-17.2 mg total) by mouth daily. oxyCODONE-acetamin Take 1-2 90 tablet 0 12/24/2016 Active ophen 5-325 mg per tablets by tablet mouth every 4 hours as needed. docusate 100 mg Take 100 mg by Active capsule mouth 2 times daily as needed. propranolol 20 mg Take 20 mg by Active tablet mouth 3 times daily. metFORMIN Take 850 mg by Discontinued (GLUCOPHAGE) 850 mouth 2 times 7 mg tablet daily. primidone 50 mg Take 100 mg by Discontinued tablet mouth 3 times 7 daily. docusate 100 mg Take 1 capsule 60 capsule 10 12/16/2016 Discontinued capsule (100 mg total) 7 by mouth 2 times daily. oxyCODONE 5 mg Take 1-2 90 tablet 0 12/16/2016 Discontinued immediate release tablets (5-10 7 tablet mg total) by mouth every 4 hours as needed for pain. Active Problems Problem Noted Date S/P deep brain stimulator placement 01/07/2017 Essential tremor 11/26/2016 Bariatric surgery status 11/19/2016 [...] Recent Encounters Date Type Specialty Providers Description 01/20/2017 Office Visit Neurology Paola Flores, Subj: Appointment MD Scheduled 01/07/2017 Office Visit Neurology Paola Flores Dx: Spike DAWSON tremor (Primary Dx) Kristin Hoskins MD 01/07/2017 Office Visit Neurosurgery Ronny Chapa Dx: S/P radhika Tilley MD stimulator placement (Primary Dx) 12/25/2016 Nurse Triage General Surgery Ramona Prater Chief Comp: NASIR Augustin shook machine operator Follow-up Call 12/24/2016 Hospital Encounter General Surgery Ronny Chapa Dx: Spike Tilley MD tremor (Primary Dx) 12/24/2016 Surgery General Surgery Ronny Chapa MD STIMULATOR GENERATOR IMPLANTATION (STAGE 2) 12/19/2016 Hospital Encounter Emergency Medicine Gayatri Smith MD Dx: Head injury, initial encounter (Primary Dx) 12/19/2016 Telephone Neurosurgery Tad Mendez, Comp: Advice Only 12/16/2016 Anesthesia Event General Surgery Joycelyn Farnsworth, [place] 12/16/2016 Pharmacy Visit 12/15/2016 Hospital Encounter Radiology Ronny Chapa Dx: Essential MD Treva tremor Audra Boykin MD 12/15/2016 - Hospital Encounter General Care Ronny Chapa Dx: Essential 12/16/2016 Inpatient - Adult MD Treva tremor (Primary Dx) 12/15/2016 Surgery General Surgery Ronny Chapa STEREOTAXIC DEEP MD Treva BRAIN STIMULATOR, VIM THALAMUS (STAGE 1) 12/14/2016 Hospital Encounter Radiology Ernesto Jang Dx: Essential MD Demertia tremor 12/10/2016 Anesthesia Event General Surgery Joycelyn Farnsworth RN 12/02/2016 Office Visit Neurosurgery Ronny Chapa Subj: Appointment MD Treva Scheduled 11/26/2016 Office Visit Neurosurgery Ronny Chapa Dx: Essential MD Treva tremor 11/26/2016 Office Visit Neurology Paola Flores, Dx: Essential tremor (Primary Dx) 11/19/2016 Office Visit Srkatia Gonzales, Subj: Upcoming Appt Jana Hadrin PA-C Reminder Nathalia Garcia MD 11/19/2016 Office Visit Vanesa Gonzales Dx: Bariatric Jana Hardin PA-C surgery status Nathalia Garcia (Primary Dx) MD Katey Social History Tobacco Use Types Packs/Day Years Used Date Former Smoker Cigarettes, Pipe, Cigars 1.5 27 Quit: 07/28/1997 Smokeless Tobacco: Never Used Tobacco Cessation:Counseling Given: Yes Comments: Alcohol Use Drinks/Week oz/Week Comments Yes rarely Last Filed Vital Signs Vital Sign Reading Time Taken Blood Pressure 153/81 01/07/2017 10:48 AM CDT Pulse 106 01/07/2017 10:48 AM CDT Temperature 35.5 C (95.9 F) 01/07/2017 10:48 AM CDT Respiratory Rate 18 12/24/2016 8:35 AM CDT Height 1.829 m (6' 0.01") 01/07/2017 10:48 AM CDT Weight 95.4 kg (210 lb 5.1 oz) 01/07/2017 10:48 AM CDT Body Mass Index 28.52 01/07/2017 10:48 AM CDT Oxygen Saturation 96% 12/24/2016 12:30 PM CDT Plan of Care Date Type Specialty Providers Description 02/11/2017 Appointment Neurology Paola Flores MD Subj: Appointment Scheduled [address] [place] [address] [phone] (Fax) 11/17/2017 Appointment Nathalia Olson MD Subj: Appointment Scheduled [address] [place] [address] [phone] (Fax) 11/17/2017 Appointment Nathalia Olson MD [address] [place] [address] [phone] (Fax) Subj: Appointment Scheduled Lilliam Gates ARNP [address] [place] [address] [phone] (Fax) Health Maintenance Due Date Last Done [...] Priority Date/Time Associated Comments Diagnosis ABSTRACTED BY BILLING Routine 12/27/2016 8:14 Essential tremor Results for this STAFF PM CDT procedure are in the results section. ABSTRACTED BY BILLING Routine 12/27/2016 6:58 Essential tremor Results for this STAFF PM CDT procedure are in the results section. DEEP BRAIN STIMULATOR 12/24/2016 10:18 Essential tremor GENERATOR AM CDT IMPLANTATION (STAGE 2) Case Notes Implant L DBS extensions and IPG STEREOTAXIC DEEP BRAIN Req for Additional 12/15/2016 8:15 AM Essential tremor STIMULATOR, VIM Time CDT THALAMUS (STAGE 1) Case Notes Implant B VIM DBS leads for ET, coil on L Results from Last 3 Months NSG OR CASE (12/27/2016 8:14 PM) Ronny Pittman MD 12/27/20168:14 PM Post-Op Procedure Note Operation/Procedure: Procedure(s) (LRB): DEEP BRAIN STIMULATOR GENERATOR IMPLANTATION (STAGE 2) (Left) PREOPERATIVE DIAGNOSIS: Essential tremors, medically refractory POSTOPERATIVE DIAGNOSIS: Essential tremors, medically refractory General Information: Date: 12/24/16 Time: 1018 Location: MAIN OR OR Room: [place] [address] Service: Neurosurgery Log ID: [id number] Surgeon: Surgeon(s) and Role: * Ronny Chapa MD - Primary * Dalton Degroot MD - Resident - Assisting Staff Information: Scrub Nurse: Nailni Shoemaker RN Circulating Nurse: Claudia Geller RN; Kanchan Sutton, [place]; Gretchen Nolen RN Solar Thermal Installer- Scrub: Lolly Calixto Anesthesia: General Findings: No Unusual Findings Blood Loss: None Implants: Implant Name Type Inv. Item Serial No. Lacquer Shader Lot No. LRB No. Used Action EXTENSION ACTIVA 40CM W/O TUNNELER [employer] 48071-92 - [id number] ACTIVA 40CM W/O TUNNELER [employer] 83359-56 [id number] [employer]IC_NEUROLOGICLeft 1 Implanted EXTENSION ACTIVA 40CM W/O TUNNELER [employer] 19094-96 - [id number] ACTIVA 40CM W/O TUNNELER [employer] 26425-37 [id number] [employer]IC_NEUROLOGICLeft 1 Implanted GENERATOR ACTIVA PC DUAL CHANNEL [employer] 70071 - [id number] GENERATOR ACTIVA PC DUAL CHANNEL [employer] 54473 [id number] [employer]IC_NEUROLOGICLeft 1 Implanted OCC THERAPY ASST ACTIVA PC PATIENT [employer] 89444 - [id number] OCC THERAPY ASST ACTIVA PC PATIENT [employer] 02054 [id number] [employer]_NEUROLOGIC Left 1 Implanted Specimens: * No [...] the entire procedure. MD Ronny Borges MD NS OR CASE (12/27/2016 6:58 PM) Ronny Pittman MD 12/27/20166:58 PM Post-Op Procedure Note Operation/Procedure: Procedure(s) (LRB): STEREOTAXIC DEEP BRAIN STIMULATOR, VIM THALAMUS (STAGE 1) (Bilateral) PREOPERATIVE DIAGNOSIS: Essential Tremor POSTOPERATIVE DIAGNOSIS: Same. General Information: Date: 12/15/16 Time: 814 Location: MAIN OR OR Room: MAIN OR 19 Service: Neurosurgery Log ID: [id number] Surgeon: Surgeon(s) and Role: * Ronny Chapa MD - Primary * Ashutosh Hernández MD - Resident - Assisting Staff Information: Scrub Nurse: Kanchan Sutton RN; Carmencita Hager international broadcast music librarian Nurse: Candy Swenson RN; Chuyita Chavez RN Anesthesia: Monitored Anesthesia Care Findings: No Unusual Findings Blood Loss: Minimal Implants: Implant Name Type Inv. Item Serial No. Lacquer Shader Lot No. LRB No. Used Action LEAD [employer] DEEP BRAIN STIMULATION ELECTRODE KIT #3387-40 - [id number] [employer] DEEP BRAIN STIMULATION ELECTRODE KIT #3387-40[employer]TRONIC_NEUROLOGIC [id number] Left 1 Implanted LEAD [employer] DEEP BRAIN STIMULATION ELECTRODE KIT #3387-40 - [id number] LEAD [employer] DEEP BRAIN STIMULATION ELECTRODE KIT #3387-40 [employer]_NEUROLOGIC [id number] Right 1 Implanted Specimens: * No specimens in log * Complications: None, patient tolerated the procedure well Condition: Stable Operative Report Completion LOCATION: Main OR #*19. STAFF/ATTENDING SURGEON: Ronny Chapa MD. RESIDENT/MANAGER PROJECT: Ashutosh Hernández MD PREOPERATIVE DIAGNOSIS: Essential Tremor [...] and CT scan were loaded onto the [facility] station where they were merged. The coordinates [...] the operating table using a Clark head refrigeration engineer. Proposed incisional markings were placed and hair [...] our exposure. On the left side, a jalousies installer was used for rohini hole exposure. The [...] Specimen Blood, capillary CT BRAIN WO CONTRAST ([id number]) (12/19/2016 7:56 PM) Impressions Impression: Expected postoperative changes as above. This final report is in agreement with the critical and emergent preliminary findings reported by the financial institution president insulation and flooring assembler. Narrative Procedure: CT BRAIN WO CONTRAST ([id number]) Indication: Recent DBS placement. Hit head today. [...] Procedure Note Aime, Incoming Imaging Results - [place] Dec 20, 2016 9:44 AM CDT Procedure: CT BRAIN WO CONTRAST ([id number]) Indication: Recent DBS placement. Hit head today. [...] and emergent preliminary findings reported by the financial institution president insulation and flooring assembler. BASIC METABOLIC PANEL W/ CALCIUM (CHEM 8) [...] Narrative Test methodology:PCR amplification; Xpert SA Test (PAX Streamline) DIFFERENTIAL (12/15/2016 2:52 PM)Only the most recent of2 resultswithin the time period is included. Component Value Range % Neutrophils-Auto Diff 58.5 % Neutrophils-Auto Diff 3880 1435-4589 /MM3 % Lymphocytes-Auto Diff 32.6 % Lymphocytes-Auto [...] Abnormality Status --------- ------ CBC (COMPLETE BLOOD COUNT)[[id number]] AbnormalFinal result DIFFERENTIAL[[id number]] Final result Please view results for these tests on the individual orders. FLUORO C-ARM: LESS THAN ONE HOUR (12/15/2016 11:00 AM)CT STEALTH BRAIN ([id number]) (12/15/2016 7:46 AM)MRI STEALTH WITHOUT CONTRAST (88811) (12/14/2016 6:31 PM) Impressions impression: Exam was performed for pretreatment planning. There are no acute findings. Narrative Procedure: MRI STEALTH WITHOUT CONTRAST ([id number]) Indication: Lead implantation of deep brain stimulator. Essential tremor. Technique: Axial SPGR volumetric MRI of the brain performed without IV contrast. Exam is performed for evaluation of deep brain stimulator surgical planning. Comparison: None. Findings/ Procedure Note Aime, Incoming Imaging Results - TuDec 15, 2016 12:22 PM CDT Procedure: MRI STEALTH WITHOUT CONTRAST ([id number]) Indication: Lead implantation of deep brain stimulator. [...] 3+(A) Negative Nitrite, Urine Negative Negative Spec [place], Urine 1.015 1.000-1.030 Specimen Urine GLUCOSE (11/26/2016 12:18 PM)Only the most recent of2 resultswithin the time period is included. Component Value Range Glucose 96Comment: 65-99 mg/dL The Expert Committee on the Diagnosis and Classification of Diabetes has defined impaired fasting glucose as greater than or equal to 100 mg/dL but less than 126 mg/dL.(Diabetes Care 28 (Suppl 1)S41,2005) Specimen Blood CREATININE (11/26/2016 12:18 PM) Component Value Range Creatinine 0.6Comment: 0.6-1.2 mg/dL [...] D3 and 25- hydroxyvitamin D2. Endocrine Society, [place] of Medicine (IOM), and World Health Organization [...] AT 830AM Normal 211 - 946 pg/mL [id number] - 210 pg/mL Deficient<150pg/mL Specimen Blood VITAMIN [...] measured. Test developed and characteristics determined by [facility]. See Compliance Statement B: [facility] Performed by [facility], [address] [place] [address] [email or web address], Jona Hook MD, Lab. Director Specimen Blood Narrative Specimen Source: Specimen Start Date: [id number] PREALBUMIN (11/19/2016 1:28 PM) Component Value Range [...] mg/dL High: 200-499 mg/dL Very high: > hp=016 mg/dL HDL Cholesterol 68 >=41 mg/dL LDL [...]
== END 2017-01-30 17:29 | disposition home or self-care (01) ==
LOC: ER 16:53
DX: S80.261A Insect bite (nonvenomous), right knee, initial encounter (principal); Z87.442 Personal history of urinary calculi; E11.9 Type 2 diabetes mellitus without complications; W57.XXXA Bitten or stung by nonvenomous insect and other nonvenomous arthropods, initial encounter

== ENCOUNTER 2017-05-01 18:40 | Inpatient (IN) | payer MEDICARE, OTHER ==
--- NOTE | 2017-05-01 20:20 | ERNOTE ---
Lower Extremity HPI - Narrative Date of Service: 05/01/17 - General Lower Extremities Pain: hip: left, leg: left, knee: left, thigh: left Time Seen by Provider: 05/01/17 19:48 Source: patient - Immun/Allergies/Home Medications Immunizations: IMMUNIZATION HX Immunizations Up to Date Yes History of Influenza Vaccine No Hx Pneumococcal Vaccination No Allergies/Adverse Reactions: Allergies Allergy/AdvReac Type Severity Reaction Status Date / Time Influenza Virus Vaccines AdvReac Vomiting Verified 09/08/16 18:07 Home Medications: HOME MEDICATIONS Tamsulosin HCl [Flomax] 0.4 mg PO HS 11/07/13 [Last Taken Unknown] Blood Sugar Diagnostic, Drum [Accu-Chek Compact Plus Strips] 1 each MC DAILY 08/13 [Last Taken Unknown] - History of Present Illness Narrative: This is a 66-year-old male with a 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 Patient comes to the emergency department complaining of left leg swelling and pain which started on Wednesday and has been progressively worsening. The patient is a diabetic and does note that he has a small ulcer on the ventral aspect of his left great toe. The patient says that since Wednesday he has noticed increased redness, warmth, swelling. The patient says that he did not have a fever until earlier today when he had as well as a subjective fever. He has no history of DVT. The patient denies any chest pain or shortness of breath. He has noted that he has redness and tenderness on the posterior aspect of the left calf radiating up to the medial aspect of the left thigh. Patient has no other complaints beside his legs Review of Systems - Review of Systems Constitutional: Present: no symptoms reported EYE: Present: no symptoms reported ENT: Present: no symptoms reported Respiratory: Present: no symptoms reported Cardiology: Present: no symptoms reported Gastrointestinal/Abdominal: Present: no symptoms reported Genitourinary: Present: no symptoms reported Musculoskeletal: Present: See HPI Skin: Present: no symptoms reported Neurological: Present: no symptoms reported Endocrine: Present: no symptoms reported Hematologic/Lymphatic: Present: other - swelling in leg is noted welling in leg as noted Psych: Present: no symptoms reported - Patient's Past Medical History Patient History - Medical: Chronic Pain, Diabetes Type 2, Kidney stone, Osteoarthritis, Other Patient History - Cardiac/Respiratory: Hypertension Patient History - Cancer: No Hx of Cancer Patient History - Surgical Procedures: Amputation, Gastric Bypass, Total Knee Replacement Patient History - Other: None - Family History Mother Family History - Medical: , Diabetes Type 2 Family History - Cardiac/Respiratory: No pertinent hx Father Family History - Medical: Family History - Cardiac/Respiratory: Coronary Heart Disease, COPD Grandmother-Paternal Family History - Medical: , Diabetes Type 2 Family History - Cardiac/Respiratory: No pertinent hx Grandmother-Maternal Family History - Medical: , Diabetes Type 2 Family History - Cardiac/Respiratory: No pertinent hx - Social History Living Situations: home Abuse History: No History of abuse Psych History: No pertinent hx Smoking Status: Former smoker Have you smoked in the past 12 months: No Do you dip or chew tobacco: No Alcohol Use: rarely Drug Use: none - Immunizations Immunizations Up to Date: Yes Hx Pneumococcal Vaccination: No History of Influenza Vaccine: No Physical Exam - Physical Exam General Appearance: Present: wd/wn, alert, no apparent distress Head Exam: Present: normal inspection, no evidence of injury Eye Exam: Normal inspection: bilateral, PERRL: bilateral, EOMI: bilateral Ears, Nose, Throat: Present: normal ENT inspection, normal pharynx Neck: Present: normal inspection, nontender Respiratory: Present: no respiratory distress, no accessory muscle use, lungs clear Cardiovascular/Chest: Present: regular rate, rhythm, no murmur Gastrointestinal/Abdominal: Present: normal bowel sounds, nondistended, soft Back Exam: Present: normal inspection, normal range of motion, no CVA tenderness Extremity Exam: Present: other - the patient has a right BKA. Patient has a swollen erythematous left leg. There is erythema posteriorly along the entire calf and dorsally along the ankle and foot. He also has erythema of the medial aspect of the left thigh following the saphenous venous system. He has significant venous distention on the posterior aspect of his left calf. He has palpable cords in the left thigh. The patient has a tiny ulcer and chronic changes to his toes. I do not see any significantly draining lesions. Neurological Exam: Present: alert, oriented, normal mood/affect, no motor/ sensory deficits Skin Exam: Present: other - please see extremity exam. Erythema as noted. Lymphatic Exam: Present: no adenopathy ED Progress - Results and Orders Patient's Lab Results:: I have reviewed the patient's lab results. - Vital Signs Vital Signs: Vital Signs 05/01/17 18:46 Temperature 38.4 C H Pulse Rate 104 H Respiratory 18 Rate Blood Pressure 144/75 O2 Sat by Pulse 100 Oximetry - CT/Ultrasound CT/Ultrasound Narrative: Duplex ultrasound is negative for acute DVT - Progress/Reassessment Chief Complaint: Lower Extremity Pain/ Injury Plan - Plan Plan: This gentleman has all the hallmarks of a deep vein thrombosis. He has gradual onset of leg swelling with erythema following the saphenous distribution of the left leg. He has significant venous distention leading me to think that there is a proximal obstruction. He has no objective fever. He does have a tiny ulcer on his great toe but this does not seem to be the area of primary localization of the erythema or swelling. I'm treating him with Lovenox immediately. I will check his labs to see if there is any signs of cellulitis. Duplex ultrasound is going to be the treatment of diagnostic of choice This is a 66-year-old gentleman who is already lost one leg to MRSA infection. He has recurrent infection in the left foot. He has diabetes and has virtually no sensation of his foot and toes. He has an open draining wound. He does not have signs of a DVT on ultrasound. I'm going to treat this as cellulitis. Due to his diabetes and the extensive nature of bleeding needs to be admitted to the hospital. I have started vancomycin. We are obtaining cultures from the wound. Talked to Dr. Goode who will admit the patient to the hospital Departure Clinical Impression: Cellulitis - Departure Disposition: [facility] Condition: Stable Referrals: Carlos Luo DO [Primary Care Provider] -
[2017-05-01 20:30] LABS: Hematocrit 30.5 % (42.0-52.0); Hemoglobin 9.5 gm/dL (13.5-18.0); Mean Cell Volume 69.5 fl (78-100); Mean Corpuscular Hemoglobin 21.6 pg (27-31); Mean Corpuscular Hgb Conc 31.1 g/dl (32-36); Mean Platelet Volume 8.4 fl (6.0-9.5); Neutrophil % 85.5 % (42-75.0); Platelet Count 246 K/mm3 (150-450); Red Blood Count 4.39 M/mm3 (4.7-6.0); Red Cell Distribution Width 18.4 % (11.5-14.0); White Blood Count 16.4 K/mm3 (4.0-10.5)
[2017-05-01 20:43] LABS: Anion Gap 15.8 mmol/L (6.8-13.8); Bilirubin, Total 0.4 mg/dL (0.0-1.1); Ca. Corrected For Albumin 8.8 mg/dL (8.4-10.2); Calcium * 8.3 mg/dL (7.9-10.9); Carbon Dioxide 23.2 mmol/L (24-32.6); Total Protein 7.4 gm/dL (6.2-8.2)
[2017-05-01] MEDS ORDERED: VANCOMYCIN HCL 1 GM in DEXTROSE 5 % IN WATER 250 ML IV ONE ×2 (20:56)
[2017-05-01] MEDS ORDERED: NORMAL SALINE 1,000 ML IV ONE (21:45)
--- NOTE | 2017-05-02 00:18 | HP ---
Chief Complaint - Chief Complaint Date of Service: 05/01/17 Time of Service: 23:32 Chief Complaint: left foot pain, swelling ,erythema and left great toe diabetic ulcer History of Present Illness: 66 years old male adm to the hospital with reports of worsening swellings, redness and pain to left mid calf into his foot. pt stated the pain was more localized in the calf and had worsen since Wednesday. He has a draining diabetic ulcer to the left great toe,with cellulitis and swelling to the surrounding area. Pt said the ulcer would reappear despite treating with triple antibiotic. This occurrence is the longest the ulcer remain on his toe. 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 In ER Venous duplex negative for DVT, WBC >16K, febrile and cultures collected. PMH significant for diabetes, hypertension, diabetic neuropathy, PE, hydronephrosis in presence of HOWARD, and obstructive sleep apnea.Plan of care discussed with pt he verbalized understanding and agree. - Patient's Past Medical History Patient History - Medical: Diabetes Type 2 - diabetic neuropathy, Kidney stone, Osteoarthritis, UTI'S Patient History - Cardiac/Respiratory: Hypertension, Hyperlipidemia, Pulmonary Embolism, Sleep Apnea Patient History - Cancer: No Hx of Cancer Patient History - Surgical Procedures: Amputation, Gastric Bypass, Total Knee Replacement, Other Patient History - Other: None - Family History Mother Family History - Medical: , Diabetes Type 2 Family History - Cardiac/Respiratory: No pertinent hx Father Family History - Medical: Family History - Cardiac/Respiratory: Coronary Heart Disease, COPD Grandmother-Paternal Family History - Medical: , Diabetes Type 2 Family History - Cardiac/Respiratory: No pertinent hx Grandmother-Maternal Family History - Medical: , Diabetes Type 2 Family History - Cardiac/Respiratory: No pertinent hx - Social History Living Situations: spouse Abuse History: No History of abuse Psych History: No pertinent hx Smoking Status: Former smoker Have you smoked in the past 12 months: No Do you dip or chew tobacco: No Alcohol Use: rarely Drug Use: none - Immunizations Immunizations Up to Date: Yes Hx Pneumococcal Vaccination: No History of Influenza Vaccine: No Review Of Systems (GEN) - Review of Systems Generalized/Overall Review: Present: No Symptoms Reported EENTM: Present: No Symptoms Reported Respiratory: Present: No Symptoms Reported Cardiac: Present: No Symptoms Reported Abdominal: Present: No Symptoms Reported Genitourinary: Present: No Symptoms Reported Musculoskeletal: Present: Other - left leg pain Neurological: Present: No Symptoms Reported Skin: Present: Other - Posterior aspect of left foot with erythema and swelling to mid calf. left great toe with ulcer minimal drainage Endocrine: Present: No Symptoms Reported Allergies/Adverse Reactions: Allergies Allergy/AdvReac Type Severity Reaction Status Date / Time Influenza Virus Vaccines AdvReac Vomiting Verified 09/08/16 18:07 Home Medications: HOME MEDICATIONS Tamsulosin HCl [Flomax] 0.4 mg PO HS 11/07/13 [Last Taken Unknown] Blood Sugar Diagnostic, Drum [Accu-Chek Compact Plus Strips] 1 each MC DAILY 08/13 [Last Taken Unknown] Exam - Exam Vital Signs: Vital Signs - Last Taken Temp 37.4 C 05/01/17 22:53 Pulse 94 05/01/17 22:53 Resp 16 05/01/17 22:53 BP 137/65 05/01/17 22:53 Pulse Ox 99 05/01/17 22:53 Constitutional: Present: Alert, Oriented x3, Cooperative, Well developed, No distress ENT Exam: Present: hearing grossly normal Eye Exam: bilateral eye: normal inspection Neck: Present: full range of motion Back Exam: Present: normal inspection Breasts: Present: Exam deferred Respiratory: Present: chest non-tender, lungs clear, normal breath sounds, no respiratory distress Cardiovascular/Chest: Present: normal peripheral pulses, regular rate, rhythm, no chest tenderness Peripheral Pulses: dorsalis-pedis (R): 0 - Below knee amputation, dorsalis- pedis (L): 3+ Abdomen: Present: Normal bowel sounds, soft, nontender, nondistended /Rectal: Present: Exam deferred Extremity: Present: normal range of motion, lower extremity edema - Posterior aspect of left foot with erythema and swelling to mid calf. left great toe with ulcer minimal drainage, leg pain, pedal edema, slow capillary refill, swelling Skin Exam: Present: other - left foot and leg cellulitis, left great toe ulcer Lymphatic: Present: no adenopathy Neurologic: Present: oriented x 3 Appearance: Present: appropriate appearance, appropriate insight Eye contact: Present: cooperative, good eye contact Thoughts: Present: normal thought pattern Diagnostic Studies: Laboratory Results WBC 16.4 K/mm3 (4.0-10.5) H 05/01/17 20:20 RBC 4.39 M/mm3 (4.7-6.0) L 05/01/17 20:20 Hgb 9.5 gm/dL (13.5-18.0) L 05/01/17 20:20 Hct 30.5 % (42.0-52.0) L 05/01/17 20:20 MCV 69.5 fl (78-100) L 05/01/17 20:20 MCH 21.6 pg (27-31) L 05/01/17 20:20 MCHC 31.1 g/dl (32-36) L 05/01/17 20:20 RDW 18.4 % (11.5-14.0) H 05/01/17 20:20 Plt Count 246 K/mm3 (150-450) 05/01/17 20:20 MPV 8.4 fl (6.0-9.5) 05/01/17 20:20 Immature Gran % (Auto) 1.20 % (0.001-0.429) H 05/01/17 20:20 Immature Gran # (Auto) 0.19 K/mm3 (0.000-0.0310) H 05/01/17 20:20 Neutrophils % 85.5 % (42-75.0) H 05/01/17 20:20 Lymphocytes % 6.7 % (20-51) L 05/01/17 20:20 Monocytes % 6.1 % (0.0-9) 05/01/17 20:20 Eosinophils % 0.2 % (0.0-3.0) 05/01/17 20:20 Basophils % 0.3 % (0.0-1.0) 05/01/17 20:20 Nucleated RBC % 0.0 k/mm3 (0-1) 05/01/17 20:20 Neutrophils # 14.0 K/mm3 (1.3-6.0) H 05/01/17 20:20 Lymphocytes # 1.1 k/mm3 (1.5-3.5) L 05/01/17 20:20 Monocytes # 1.0 k/mm3 (0.0-1.0) 05/01/17 20:20 Eosinophils # 0.0 k/mm3 (0.0-0.7) 05/01/17 20:20 Absolute Basophils 0.1 k/mm3 (0.0-0.1) 05/01/17 20:20 Sodium 135 mmol/L (132-142) 05/01/17 20:20 Plasma Sodium 137 mmol/L (130-142) 05/01/17 20:20 Potassium 4.0 mmol/L (3.4-4.6) 05/01/17 20:20 Chloride 100 mmol/L (97-106) 05/01/17 20:20 Carbon Dioxide 23.2 mmol/L (24-32.6) L 05/01/17 20:20 Anion Gap 15.8 mmol/L (6.8-13.8) H 05/01/17 20:20 BUN 14 mg/dL (6-23) 05/01/17 20:20 Creatinine 1.00 mg/dL (0.4-1.4) 05/01/17 20:20 Est GFR (Non-Af Amer) 80 mL/min (60-130) D 05/01/17 20:20 BUN/Creatinine Ratio 14.0 (9.0-21.6) 05/01/17 20:20 Random Glucose 248 mg/dL (70-110) H 05/01/17 20:20 Lactic Acid, Venous 2.1 mmol/L (0.4-1.9) H* 05/01/17 20:20 Calcium 8.3 mg/dL (7.9-10.9) 05/01/17 20:20 Calcium Adj for Albumin 8.8 mg/dL (8.4-10.2) 05/01/17 20:20 Total Bilirubin 0.4 mg/dL (0.0-1.1) 05/01/17 20:20 AST 14 U/L (0-48) 05/01/17 20:20 ALT 14 U/L (19-67) L 05/01/17 20:20 Alkaline Phosphatase 87 U/L (50-170) 05/01/17 20:20 Total Protein 7.4 gm/dL (6.2-8.2) 05/01/17 20:20 Albumin 3.0 gm/dl (3.4-5.0) L 05/01/17 20:20 Venous duplex - for DVT Assessment/Plan - Narrative Narrative: Cellulitis- secondary to left great toe diabetic ulcer On adm pt report left great toe ulcer, that has been re-occurring. On this re-occurrence lasting over 2 weeks, he noticed increased swelling and redness along the foot and up mid calf. Venous duplex negative for DVT, pt had history of PE. s/s initially presented like a DVT and lovenox was given in ER. Blood cultures and wound cultures pending IVF was initiated and will continue Tylenol PRN for fever. On adm Temp 38.4--->38.1--->37.9 continue to monitor vital signs Vancomycin was initiated continue and pharmacy to dose Diabetic Ulcer Pt have diabetic neuropathy and diabetic ulcer to left great toe that have been re-occurring for a while. concern for osteomyelitis, this time ulcer lasting over two weeks. 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 consider consulting Podiatry [facility]- likely due to ulceration to toe On adm WBC >16k, Temp 38.4, HR 104, lactic acid 2.1 Monitor cbc, Bmp in AM Plan same as #1 and 2 Diabetes Diet control Accu-check AC+HS and Sliding scale insulin may resume home medication Consistent carb diet Hypertension- stable continue to monitor Code status: Full DVT ppx: Lovenox x1 given in ER GI ppx: Previous records reviewed Time 38 minutes - Assessment/Plan (1) Cellulitis Problem: Acute Qualifiers: Site of cellulitis: extremity Site of cellulitis of extremity: lower extremity Laterality: left Qualified Code(s): L03.116 - Cellulitis of left lower limb (2) Diabetes mellitus Problem: Chronic Qualifiers: Diabetes mellitus type: type 2 Diabetes mellitus complication detail: with unspecified neuropathy (3) HTN (hypertension) Problem: Chronic Qualifiers: Hypertension type: essential hypertension Qualified Code(s): I10 - Essential (primary) hypertension
[2017-05-02 06:20] LABS: Hemoglobin 8.5 gm/dL (13.5-18.0); Mean Cell Volume 69.2 fl (78-100); Mean Corpuscular Hemoglobin 21.8 pg (27-31); Mean Corpuscular Hgb Conc 31.5 g/dl (32-36); Mean Platelet Volume 8.6 fl (6.0-9.5); Neutrophil # 10.1 K/mm3 (1.3-6.0); Neutrophil % 76.9 % (42-75.0); Platelet Count 217 K/mm3 (150-450); Red Cell Distribution Width 18.2 % (11.5-14.0); White Blood Count 13.1 K/mm3 (4.0-10.5)
[2017-05-02 06:33] LABS: Anion Gap 14.3 mmol/L (6.8-13.8); BUN/Creatinine Ratio 11.9 (9.0-21.6); Calcium * 8.3 mg/dL (7.9-10.9); Carbon Dioxide 24.1 mmol/L (24-32.6); Estimated Creat Clear 97.5; Potassium 3.4 mmol/L (3.4-4.6)
[2017-05-02] MEDS: INSULIN LISPRO 100 UNITS/ML VIAL SC SCH ×4 (07:05→21:11)
[2017-05-02 07:19] LABS: Hemoglobin A1C 6.8 % (4.00-6.0)
[2017-05-02] MEDS: SACCHAROMYCES BOULARDII 250 MG CAPSULE PO SCH ×2 (08:50→21:09)
[2017-05-02] MEDS: PIPERACILLIN SODIUM/TAZOBACTAM 3.375 GM in DEXTROSE 5 % IN WATER 100 ML IV SCH ×6 (08:50→23:26)
[2017-05-02] MEDS: VANCOMYCIN HCL 1.75 GM in DEXTROSE 5 % IN WATER 500 ML IV SCH ×4 (12:53→23:26)
[2017-05-02] MEDS: TAMSULOSIN HCL 0.4 MG CAP.SR.24H PO SCH (21:09)
[2017-05-02] MEDS: HEPARIN SODIUM,PORCINE 5,000 UNITS/ML VIAL SC SCH (23:32)
[2017-05-03] MEDS ORDERED: chlorproMAZINE HCL 10 MG TABLET PO ONE (03:30)
[2017-05-03 05:12] LABS: Hematocrit 25.7 % (42.0-52.0); Mean Cell Volume 68.7 fl (78-100); Mean Corpuscular Hemoglobin 21.4 pg (27-31); Mean Corpuscular Hgb Conc 31.1 g/dl (32-36); Mean Platelet Volume 8.6 fl (6.0-9.5); Neutrophil # 8.6 K/mm3 (1.3-6.0); Platelet Count 226 K/mm3 (150-450); Red Blood Count 3.74 M/mm3 (4.7-6.0); Red Cell Distribution Width 18.2 % (11.5-14.0); White Blood Count 10.6 K/mm3 (4.0-10.5)
[2017-05-03] MEDS: INSULIN LISPRO 100 UNITS/ML VIAL SC SCH ×4 (07:20→21:26)
[2017-05-03] MEDS: chlorproMAZINE HCL 10 MG TABLET PO SCH ×3 (09:05→18:46)
[2017-05-03] MEDS: SACCHAROMYCES BOULARDII 250 MG CAPSULE PO SCH ×2 (09:05→21:26)
[2017-05-03] MEDS: PIPERACILLIN SODIUM/TAZOBACTAM 3.375 GM in DEXTROSE 5 % IN WATER 100 ML IV SCH ×6 (09:05→23:50)
--- NOTE | 2017-05-03 10:34 | PN ---
Subjective - Date and Time Seen Date: 05/03/17 Time: 10:21 Subjective Narrative: Hernandez reports pain is controlled. Redness is less. No nausea, vomiting, fever, or chills. Objective - Vitals Vitals: Last Vital Signs Temp 36.4 C L 05/03/17 07:09 Pulse 84 05/03/17 07:09 Resp 18 05/03/17 07:09 BP 131/64 05/03/17 07:09 Pulse Ox 94 05/03/17 07:09 - Abnormal Lab Findings Abnormal Lab Findings: Abnormal Lab Results 05/02/17 05/02/17 05/03/17 Range/Units 11:56 11:56 05:00 WBC 10.6 H (4.0-10.5) K/mm3 RBC 3.74 L (4.7-6.0) M/mm3 Hgb 8.0 L (13.5-18.0) gm/dL Hct 25.7 L (42.0-52.0) % MCV 68.7 L (78-100) fl MCH 21.4 L (27-31) pg MCHC 31.1 L (32-36) g/dl RDW 18.2 H (11.5-14.0) % Immature Gran % (Auto) 1.00 H (0.001-0.429) % Immature Gran # (Auto) 0.11 H (0.000-0.0310) K/mm3 Neutrophils % 81.0 H (42-75.0) % Lymphocytes % 10.2 L (20-51) % Neutrophils # 8.6 H (1.3-6.0) K/mm3 Lymphocytes # 1.1 L (1.5-3.5) k/mm3 ESR 82 H (0-10) mm/hr C-Reactive Prot, Quant 27.7 H (0.0-0.9) mg/dL - Exam Constitutional: Present: Alert, Oriented x3, Cooperative ENT Exam: Present: hearing grossly normal Skin Exam: Present: other - Erythema to mid foot on dorsal aspect of left foot. No active drainage. Assessment/Plan Plan Narrative: Hernandez is a 66 yo male with: 1) Cellulitis/diabetic foot ulcer/soft tissue infection, possible osteomyelitis. He has had improvement since starting vancomycin and zosyn. Will continue these until wound culture comes back with an oral substitute. Unable to perform MRI due to deep brain stimulator. Will evaluate with bone scan to help determine if ostemyelitis is present. - Problems/Diagnosis (1) Cellulitis Problem: Acute Qualifiers: Site of cellulitis: extremity Site of cellulitis of extremity: lower extremity Laterality: left Qualified Code(s): L03.116 - Cellulitis of left lower limb (2) Diabetes mellitus Problem: Chronic Qualifiers: Diabetes mellitus type: type 2 Diabetes mellitus complication detail: with unspecified neuropathy (3) Diabetic foot ulcer Problem: Acute
[2017-05-03] MEDS: HEPARIN SODIUM,PORCINE 5,000 UNITS/ML VIAL SC SCH ×2 (12:01→23:44)
[2017-05-03] MEDS: VANCOMYCIN HCL 1.75 GM in DEXTROSE 5 % IN WATER 500 ML IV SCH ×4 (12:04→23:50)
[2017-05-03] MEDS: ACETAMINOPHEN 500 MG TABLET PO PRN (15:02)
[2017-05-03] MEDS: TAMSULOSIN HCL 0.4 MG CAP.SR.24H PO SCH (21:26)
[2017-05-04] MEDS: chlorproMAZINE HCL 10 MG TABLET PO SCH ×4 (01:26→18:44)
[2017-05-04] MEDS: INSULIN LISPRO 100 UNITS/ML VIAL SC SCH ×4 (06:35→21:05)
[2017-05-04 08:12] LABS: Iron 10 mcg/dL (35-120); Transferrin Sat. (% Sat.) 3 % (15-55)
[2017-05-04] MEDS ORDERED: IRON SUCROSE COMPLEX 500 MG in NORMAL SALINE 250 ML IV ONE (08:19)
[2017-05-04] MEDS: PIPERACILLIN SODIUM/TAZOBACTAM 3.375 GM in DEXTROSE 5 % IN WATER 100 ML IV SCH ×4 (09:03→16:54)
[2017-05-04] MEDS: SACCHAROMYCES BOULARDII 250 MG CAPSULE PO SCH ×2 (09:03→21:06)
--- NOTE | 2017-05-04 10:05 | PN ---
Subjective - Date and Time Seen Date: 05/04/17 Time: 09:37 Subjective Narrative: feeling better, redness improved. no cp, no dyspnea. no fever, no chills. Objective - Review of Systems Generalized/Overall Review: Reports: No Symptoms Reported EENTM: Reports: No Symptoms Reported Respiratory: Reports: No Symptoms Reported Cardiac: Reports: No Symptoms Reported Abdominal: Reports: No Symptoms Reported Genitourinary Symptoms: Reports: No Symptoms Reported Musculoskeletal Complaints: Reports: Joint Pain, Joint Swelling, Muscle Pain Neurological: Reports: No Symptoms Reported Skin: Reports: Change in Color Endocrine: Reports: No Symptoms Reported Misc: All systems neg except as marked - Vitals Vitals: Last Vital Signs Temp 36.4 C L 05/04/17 07:54 Pulse 96 05/04/17 07:54 Resp 18 05/04/17 07:54 BP 157/72 05/04/17 07:54 Pulse Ox 96 05/04/17 07:54 - Abnormal Lab Findings Abnormal Lab Findings: Abnormal Lab Results 05/03/17 Range/Units 05:00 Iron 10 L (35-120) mcg/dL Transferrin % Sat 3 L (15-55) % - Exam Constitutional: Present: Alert, Oriented x3, Cooperative ENT Exam: Present: hearing grossly normal Neck: Present: full range of motion, supple Breasts: Present: Exam deferred Respiratory: Present: lungs clear, normal breath sounds, no respiratory distress , no accessory muscle use Cardiovascular/Chest: Present: normal peripheral pulses, regular rate, rhythm, no chest tenderness Abdomen: Present: soft, nontender, nondistended /Rectal: Present: Exam deferred Extremity: Present: inflammation - left distal foot, improved, leg pain - lower left leg into left foot, pedal edema - left, other - right lower leg amputee Skin Exam: Present: warm/dry, no cyanosis Assessment/Plan Plan Narrative: Diabetic Ulcer with surrounding cellulitis - improving with IV antibiotics - Zosyn 3.375 mg iv q 8 hours - Vancomycin 1.75 mg iv q 12 hours. - Probiotics ordered - Bone scan today to rule out osteomyelitis - unable to do MRI due to patient's brain stimulator. - Dr. Crockett to see patient for recommendations. - Prelim wound culture: - tirso mosley, streptococcus species and enterobacter cloacae - await final results Diabetes - hgba1c 6.6% - indicates good control - continue accu-checks QID with sliding scale as needed - consistent carb meals iron deficiency anemia - hgb on 05/03/17 8.0 - iron 10, TIBC 290, % sat 3 - will give 1 dose of 500 mg IV venofer today - will need dose repeated in 2 weeks outpatient in the [facility]. - likely secondary to patient's history of gastric bypass surgery. HTN - vital signs q 4 hours Discharge planning - continue abx, await results of bone scan to determine length of abx and iv versus po, await dr crockett consult. Code status: Full Code VTE: heparin GI proph: protonix po. - Problems/Diagnosis (1) Iron deficiency anemia Problem: Chronic Qualifiers: Iron deficiency anemia type: other iron deficiency Qualified Code(s): D50.8 - Other iron deficiency anemias (2) Discharge planning issues Problem: Acute (3) Cellulitis Problem: Acute Qualifiers: Site of cellulitis: extremity Site of cellulitis of extremity: lower extremity Laterality: left Qualified Code(s): L03.116 - Cellulitis of left lower limb (4) Diabetic foot ulcer Problem: Acute (5) Diabetes mellitus Problem: Chronic Qualifiers: Diabetes mellitus type: type 2 Diabetes mellitus complication status: with skin complications Diabetes mellitus complication detail: with foot ulcer Diabetes mellitus terminal press operator insulin use: without [facility] use Qualified Code( s): E11.621 - Type 2 diabetes mellitus with foot ulcer; L97.509 - Non-pressure chronic ulcer of other part of unspecified foot with unspecified severity (6) HTN (hypertension) Problem: Chronic Qualifiers: Hypertension type: essential hypertension Qualified Code(s): I10 - Essential (primary) hypertension
[2017-05-04] MEDS: HEPARIN SODIUM,PORCINE 5,000 UNITS/ML VIAL SC SCH ×2 (11:12→23:29)
--- NOTE | 2017-05-04 12:48 | CONS ---
[facility] - General Date of Service: 05/04/17 Narrative: Pt evaluated at bedside for care of a DM foot ulceration to the left great toe. He was seen in the ED on Wednesday with c/o redness extending past the level of the knee, as well as swelling and pain of the LLE. He was admitted and has made notable improvement with IV ABX, cultures pending, xrays with no clear signs of osteomyelitis. He has h/o BKA to the RLE approximately 4 years ago secondary to MRSA infection. I was consulted for wound care evaluation and treatment. Source: patient Exam Limitations: no limitations - History of Present Illness Allergies/Adverse Reactions: Allergies Influenza Virus Vaccines Adverse Reaction (Verified 09/08/16 18:07) Vomiting Home Medications: Home Medications Medication Instructions Recorded Last Taken Tamsulosin HCl [Flomax] 0.4 mg PO HS 11/07/13 Unknown Blood Sugar Diagnostic, Drum 1 each MC DAILY 01/08/15 Unknown [Accu-Chek Compact Plus Strips] - Patient's Past Medical History Patient History - Medical: Diabetes Type 2 - diabetic neuropathy, Kidney stone, Osteoarthritis, UTI'S Patient History - Cardiac/Respiratory: Hypertension, Hyperlipidemia, Pulmonary Embolism, Sleep Apnea Patient History - Cancer: No Hx of Cancer Patient History - Surgical Procedures: Amputation, Gastric Bypass, Total Knee Replacement, Other Patient History - Other: None - Family History Mother Family History - Medical: , Diabetes Type 2 Family History - Cardiac/Respiratory: No pertinent hx Father Family History - Medical: Family History - Cardiac/Respiratory: Coronary Heart Disease, COPD Grandmother-Paternal Family History - Medical: , Diabetes Type 2 Family History - Cardiac/Respiratory: No pertinent hx Grandmother-Maternal Family History - Medical: , Diabetes Type 2 Family History - Cardiac/Respiratory: No pertinent hx - Social History Living Situations: spouse Abuse History: No History of abuse Psych History: No pertinent hx Smoking Status: Former smoker Have you smoked in the past 12 months: No Do you dip or chew tobacco: No Alcohol Use: rarely Drug Use: none - Immunizations Immunizations Up to Date: Yes Hx Pneumococcal Vaccination: No History of Influenza Vaccine: No Procedures BONE BIOPSY NEC (04/22/10) CLOSURE SKIN & SUBCUTANEOUS NEC (01/29/14) DPT ADMINISTRATION (12/19/11) DRESSING OF WOUND NEC (07/23/10) EXC CHEST CAGE BONE LES (06/22/06) EXCIS DEBRIDE OF WOUND, INFECT, OR BURN (07/12/10) FREE SKIN GRAFT NEC (12/09/07) INC SOFT TISSUE HAND NEC (03/14/08) LOC EXC LES METATAR/TAR (07/12/10) NONEXCIS DEBRID OF WOUND, INFECT, OR BURN (10/18/07) OTH ARTHROTOMY-ANKLE (10/18/07) OTH ARTHROTOMY-SHOULDER (05/06/06) OTH CHEST CAGE OSTECTOMY (05/06/06) REMOV INT FIX-METAT/TAR (07/23/10) SOFT TISSUE INCISION NEC (10/18/07) SUTURE OF VEIN (10/18/07) TOTAL KNEE REPLACEMENT (01/14/15) TRIPLE ARTHRODESIS (06/30/10) ULTRASONOGRAPHY OF BLADDER (08/31/16) URETERAL CATHETERIZATION (11/08/13) URETHRAL DILATION (03/17/04) URETHROSCOPY NEC (04/23/09) VENOUS CATHETERIZATION NEC (07/12/10) Medications - Medications Current Medications: Current Medications Acetaminophen (Tylenol) 500 mg PO Q6H PRN PRN Reason: Fever Stop: 05/31/17 22:32 Last Admin: 05/03/17 15:02 Dose: 500 mg Chlorpromazine HCl (Thorazine) 10 mg PO Q6H [facility] Stop: 06/02/17 07:31 Last Admin: 05/04/17 06:35 Dose: 10 mg Heparin Sodium (Porcine) (Heparin Sodium) 5,000 units SC Q12H [facility] Stop: 06/01/17 23:16 Last Admin: 05/04/17 11:12 Dose: 5,000 units Piperacillin Sod/Tazobactam (Sod 3.375 gm/ Dextrose/Water) 100 mls @ 25 mls/hr IV Q8H [facility] PRN Reason: Protocol Stop: 06/01/17 08:01 Last Admin: 05/04/17 09:03 Dose: 25 mls/hr Vancomycin HCl 1.75 gm/ (Dextrose/Water) 500 mls @ 140 mls/hr IV Q12H [facility] Stop: 06/01/17 12:01 Last Admin: 05/03/17 23:50 Dose: 140 mls/hr Insulin Human Lispro (Humalog) 0 units SC ACHSINS [facility] PRN Reason: Protocol Stop: 06/01/17 07:01 Last Admin: 05/04/17 11:12 Dose: Not Given Saccharomyces Boulardii (Florastor) 250 mg PO BID [facility] Stop: 06/01/17 09:01 Last Admin: 05/04/17 09:03 Dose: 250 mg Tamsulosin HCl (Flomax) 0.4 mg PO HS [facility] Stop: 06/01/17 21:01 Last Admin: 05/03/17 21:26 Dose: 0.4 mg Review of Systems - Review of Systems Neurological: Present: Numbness Skin: Present: Other - redness and swelling left foot, ulceration left great toe Physical Examination - Exam Vital Signs: Vital Signs - Last Taken Temp 36.1 C L 05/04/17 10:18 Pulse 89 05/04/17 10:18 Resp 18 05/04/17 10:18 BP 154/71 05/04/17 10:18 Pulse Ox 100 05/04/17 10:18 O2 Oxygen Delivery Method Room Air Constitutional: Present: Alert, Oriented x3, Cooperative, No distress Peripheral Pulses: dorsalis-pedis (L): 1+ Extremity: Present: lower extremity edema Skin Exam: Present: other - Ulceration to the plantar left great toe measuring 0.9 x 0.7 x 0.2 cm. No tunneling or undermining. Loss of tissue to full thickness with exposure of subcutaneous fat layer. Base mostly yellow, fibrotic tissue with minimal granulation tissue intermixed. Surrounding tissue hyperkeratotic, erythema extends throughout the toe into the dorsum of the foot. Minimal serous drainage There is new blister formation in the 1st webspace draining serous fluid. Surrounding tissue erythematous. Appearance: Present: appropriate appearance Eye contact: Present: cooperative - Results and Findings: Lab/Microbiology results last 24 hrs: Abnormal/Pending Laboratory Last 24 HRS 05/03/17 05:00 Iron 10 L Transferrin % Sat 3 L - Assessments/Findings (1) Cellulitis Diagnosis(s): Continue IV ABX pending culture results. Problem: Acute Qualifiers: Site of cellulitis: extremity Site of cellulitis of extremity: lower extremity Laterality: left Qualified Code(s): L03.116 - Cellulitis of left lower limb (2) Diabetic foot ulcer Diagnosis(s): Ulceration to left great toe debrided at bedside to subcutaneous tissue with # 15 blade excising all hyperkeratotic tissue down to healthy, bleeding subcutaneous wound margins. Surface also debrided with #15 blade removing devitalized tissue revealing bleeding subcutaneous wound bed. Hemostasis with compression. Pt tolerated well. Blister to webspace deroofed. Toe/webspace dressed with dry gauze, connie, and tape. Will begin daily dressing changes with Aquacel Ag, dry gauze, connie. Foot to be washed well with soap and water daily prior to applying new dressing. Await culture results for further ABX therapy. Bone scan to assess for deeper infection. Surgical care pending results of scan. Will d/w pt when available. Problem: Acute Qualifiers: Diabetic foot ulcer location: toe Diabetes mellitus type: type 2 Laterality: left Non-pressure ulcer stage: with fat layer exposed Qualified Code(s): E11.621 - Type 2 diabetes mellitus with foot ulcer; L97.522 - Non- pressure chronic ulcer of other part of left foot with fat layer exposed
[2017-05-04] MEDS: VANCOMYCIN HCL 1.75 GM in DEXTROSE 5 % IN WATER 500 ML IV SCH ×2 (13:14)
[2017-05-04] MEDS ORDERED: METOCLOPRAMIDE HCL 10 MG TABLET PO ONE (17:00)
[2017-05-04] MEDS: TAMSULOSIN HCL 0.4 MG CAP.SR.24H PO SCH (21:06)
[2017-05-04] MEDS ORDERED: METOCLOPRAMIDE HCL 10 MG TABLET PO SCH (23:55)
[2017-05-05] MEDS: VANCOMYCIN HCL 1.75 GM in DEXTROSE 5 % IN WATER 500 ML IV SCH ×2 (00:02)
[2017-05-05] MEDS: PIPERACILLIN SODIUM/TAZOBACTAM 3.375 GM in DEXTROSE 5 % IN WATER 100 ML IV SCH ×4 (00:03→07:49)
[2017-05-05] MEDS: chlorproMAZINE HCL 10 MG TABLET PO SCH ×2 (02:03→07:49)
[2017-05-05 06:05] LABS: Hematocrit 26.3 % (42.0-52.0); Hemoglobin 8.3 gm/dL (13.5-18.0); Mean Cell Volume 69.2 fl (78-100); Mean Corpuscular Hemoglobin 21.8 pg (27-31); Mean Corpuscular Hgb Conc 31.6 g/dl (32-36); Mean Platelet Volume 8.2 fl (6.0-9.5); Neutrophil # 5.1 K/mm3 (1.3-6.0); Neutrophil % 70.3 % (42-75.0); Platelet Count 238 K/mm3 (150-450); Red Cell Distribution Width 18.1 % (11.5-14.0); White Blood Count 7.3 K/mm3 (4.0-10.5)
[2017-05-05 06:20] LABS: Calcium * 8.9 mg/dL (7.9-10.9); Carbon Dioxide 27.8 mmol/L (24-32.6); Potassium 3.8 mmol/L (3.4-4.6)
[2017-05-05] MEDS: INSULIN LISPRO 100 UNITS/ML VIAL SC SCH ×4 (06:56→20:15)
[2017-05-05] MEDS: SACCHAROMYCES BOULARDII 250 MG CAPSULE PO SCH ×2 (08:51→20:15)
[2017-05-05] MEDS ORDERED: METOCLOPRAMIDE HCL 10 MG TABLET PO PRN (10:51)
--- NOTE | 2017-05-05 10:51 | PN ---
Subjective - Date and Time Seen Date: 05/05/17 Time: 10:51 Subjective Narrative: c/o hiccups - better with po reglan. minimal foot pain. no cp/dyspnea/fever/ chills. Objective - Review of Systems Generalized/Overall Review: Reports: No Symptoms Reported EENTM: Reports: No Symptoms Reported Respiratory: Reports: No Symptoms Reported Cardiac: Reports: No Symptoms Reported Abdominal: Reports: No Symptoms Reported Genitourinary Symptoms: Reports: No Symptoms Reported Musculoskeletal Complaints: Reports: Joint Pain Neurological: Reports: No Symptoms Reported Skin: Reports: No Symptoms Reported Endocrine: Reports: No Symptoms Reported Misc: All systems neg except as marked - Vitals Vitals: Last Vital Signs Temp 37 C 05/05/17 07:45 Pulse 84 05/05/17 07:45 Resp 18 05/05/17 07:45 BP 139/62 05/05/17 07:45 Pulse Ox 98 05/05/17 07:45 - Abnormal Lab Findings Abnormal Lab Findings: Abnormal Lab Results 05/05/17 05/05/17 Range/Units 06:00 06:00 RBC 3.80 L (4.7-6.0) M/mm3 Hgb 8.3 L (13.5-18.0) gm/dL Hct 26.3 L (42.0-52.0) % MCV 69.2 L (78-100) fl MCH 21.8 L (27-31) pg MCHC 31.6 L (32-36) g/dl RDW 18.1 H (11.5-14.0) % Immature Gran % (Auto) 0.60 H (0.001-0.429) % Immature Gran # (Auto) 0.04 H (0.000-0.0310) K/mm3 Lymphocytes % 17.7 L (20-51) % Lymphocytes # 1.3 L (1.5-3.5) k/mm3 Random Glucose 162 H (70-110) mg/dL - Exam Constitutional: Present: Alert, Oriented x3, Cooperative, No distress ENT Exam: Present: hearing grossly normal Neck: Present: supple Breasts: Present: Exam deferred Respiratory: Present: lungs clear, normal breath sounds Cardiovascular/Chest: Present: regular rate, rhythm, no chest tenderness Abdomen: Present: soft, nontender, nondistended /Rectal: Present: Exam deferred Extremity: Present: no calf tenderness, inflammation - left foot Skin Exam: Present: normal color, warm/dry, no cyanosis Neurologic: Present: sensory deficit - feet Assessment/Plan Plan Narrative: Diabetic Ulcer with surrounding cellulitis - improving with IV antibiotics - currently on IV zosyn / IV vanco - Stop on 05/05/17 - final wound culture grew staph aureus (not MRSA), strep agalactiae group B, Enterobacter cloacae - spoke with Staci (pharm) recommend change abx: - Levaquin 750 mg iv daily - Day #1 - Probiotics ordered - Bone scan 05/04/17 c/w osteomyelitis - unable to do MRI due to patient's brain stimulator. - Dr. Velasco to discuss treatment options with patient Diabetes - hgba1c 6.6% - indicates good control - continue accu-checks QID with sliding scale as needed - consistent carb meals iron deficiency anemia - hgb on 05/03/17 8.0 - iron 10, TIBC 290, % sat 3 - 1 dose of 500 mg IV venofer given 05/04/17 - repeat in 2 weeks outpatient in the [facility]. - likely secondary to patient's history of gastric bypass surgery. HTN - vital signs q 4 hours Code status: Full Code VTE: heparin GI proph: protonix po. - Problems/Diagnosis (1) Iron deficiency anemia Problem: Chronic Qualifiers: Iron deficiency anemia type: other iron deficiency Qualified Code(s): D50.8 - Other iron deficiency anemias (2) Discharge planning issues Problem: Acute (3) Cellulitis Problem: Acute Qualifiers: Site of cellulitis: extremity Site of cellulitis of extremity: lower extremity Laterality: left Qualified Code(s): L03.116 - Cellulitis of left lower limb (4) Diabetic foot ulcer Problem: Acute Qualifiers: Diabetic foot ulcer location: toe Diabetes mellitus type: type 2 Laterality: left Non-pressure ulcer stage: with fat layer exposed Qualified Code(s): E11.621 - Type 2 diabetes mellitus with foot ulcer; L97.522 - Non- pressure chronic ulcer of other part of left foot with fat layer exposed (5) Diabetes mellitus Problem: Chronic Qualifiers: Diabetes mellitus type: type 2 Diabetes mellitus complication status: with skin complications Diabetes mellitus complication detail: with foot ulcer Diabetes mellitus nursing home insulin use: without nursing home use Qualified Code( s): E11.621 - Type 2 diabetes mellitus with foot ulcer; L97.509 - Non-pressure chronic ulcer of other part of unspecified foot with unspecified severity (6) HTN (hypertension) Problem: Chronic Qualifiers: Hypertension type: essential hypertension Qualified Code(s): I10 - Essential (primary) hypertension
[2017-05-05] MEDS: LEVOFLOXACIN/D5W 750 MG/150 ML BAG IV SCH (11:58)
[2017-05-05] MEDS: HEPARIN SODIUM,PORCINE 5,000 UNITS/ML VIAL SC SCH (12:01)
--- NOTE | 2017-05-05 13:03 | PN ---
Subjective - Date and Time Seen Date: 05/05/17 Time: 08:00 Subjective Narrative: Pt evaluated at bedside resting. Denies any N/V/F/C. Denies any pain in his left foot. States that he did not get much rest last night. Objective - Review of Systems Neurological: Reports: Numbness Skin: Reports: Other - ulceration left great toe, redness left foot - Vitals Vitals: Last Vital Signs Temp 36.8 C 05/05/17 10:53 Pulse 88 05/05/17 10:53 Resp 18 05/05/17 10:53 BP 144/74 05/05/17 10:53 Pulse Ox 98 05/05/17 10:53 - Abnormal Lab Findings Abnormal Lab Findings: Abnormal Lab Results 05/05/17 05/05/17 Range/Units 06:00 06:00 RBC 3.80 L (4.7-6.0) M/mm3 Hgb 8.3 L (13.5-18.0) gm/dL Hct 26.3 L (42.0-52.0) % MCV 69.2 L (78-100) fl MCH 21.8 L (27-31) pg MCHC 31.6 L (32-36) g/dl RDW 18.1 H (11.5-14.0) % Immature Gran % (Auto) 0.60 H (0.001-0.429) % Immature Gran # (Auto) 0.04 H (0.000-0.0310) K/mm3 Lymphocytes % 17.7 L (20-51) % Lymphocytes # 1.3 L (1.5-3.5) k/mm3 Random Glucose 162 H (70-110) mg/dL - Exam Exam Narrative: Bone scan reviewed. Concerning for osteomyelitis of the great toe as well as septic arthritis. Constitutional: Present: Alert, Oriented x3, Cooperative, No distress Skin Exam: Present: other - Erythema to left great toe has improved slightly from yesterday's visit. Ulceration with no change in size, decrease in drainage. Blister to 1st webspace has also decreased in drainage, still with localized erythema present. Neurologic: Present: sensory deficit Assessment/Plan - Problems/Diagnosis (1) Cellulitis Problem: Acute Qualifiers: Site of cellulitis: extremity Site of cellulitis of extremity: lower extremity Laterality: left Qualified Code(s): L03.116 - Cellulitis of left lower limb Narrative: Continue IV ABX. (2) Diabetic foot ulcer Problem: Acute Qualifiers: Diabetic foot ulcer location: toe Diabetes mellitus type: type 2 Laterality: left Non-pressure ulcer stage: with fat layer exposed Qualified Code(s): E11.621 - Type 2 diabetes mellitus with foot ulcer; L97.522 - Non- pressure chronic ulcer of other part of left foot with fat layer exposed Narrative: Discussed at length with pt and treatment options after reviewing bone scan. Options include PICC line with 6-8 weeks IV ABX with understanding that he may still require surgery at some point vs I&D with bone culture vs amputation of the great toe left foot. Educated on risks vs benefits of surgery. No guarantees given or implied. Advised that he may require further surgical care in the future should this fail. States understanding and wishes to proceed with amputation of the left great toe. Will place orders to obtain consent for left great toe amputation. Will plan for surgery this Wednesday, 05/07, pending open OR block time. Ok for d/c home following surgery on oral ABX for approximately 3 weeks.
[2017-05-05] MEDS: METOCLOPRAMIDE HCL 10 MG TABLET PO SCH ×2 (13:57→18:25)
[2017-05-05] MEDS: TAMSULOSIN HCL 0.4 MG CAP.SR.24H PO SCH (20:15)
[2017-05-06] MEDS: HEPARIN SODIUM,PORCINE 5,000 UNITS/ML VIAL SC SCH ×3 (00:20→22:49)
[2017-05-06] MEDS: METOCLOPRAMIDE HCL 10 MG TABLET PO SCH ×4 (00:20→18:26)
[2017-05-06] MEDS: INSULIN LISPRO 100 UNITS/ML VIAL SC SCH ×4 (07:31→20:02)
[2017-05-06] MEDS: SACCHAROMYCES BOULARDII 250 MG CAPSULE PO SCH ×2 (09:08→20:00)
--- NOTE | 2017-05-06 09:19 | PN ---
Subjective - Date and Time Seen Date: 05/06/17 Time: 09:14 Subjective Narrative: c/o worsening hiccups. minimal foot pain. no cp/dyspnea/fever/chills. Objective - Review of Systems Generalized/Overall Review: Reports: No Symptoms Reported EENTM: Reports: No Symptoms Reported Respiratory: Reports: No Symptoms Reported Cardiac: Reports: No Symptoms Reported Abdominal: Reports: No Symptoms Reported Genitourinary Symptoms: Reports: No Symptoms Reported Musculoskeletal Complaints: Reports: Joint Pain Neurological: Reports: Other - hiccups Skin: Reports: No Symptoms Reported Endocrine: Reports: No Symptoms Reported Misc: All systems neg except as marked - Vitals Vitals: Last Vital Signs Temp 36.8 C 05/06/17 07:01 Pulse 84 05/06/17 07:01 Resp 20 05/06/17 07:01 BP 135/77 05/06/17 07:01 Pulse Ox 99 05/06/17 07:01 - Exam Constitutional: Present: Alert, Cooperative ENT Exam: Present: hearing grossly normal Neck: Present: full range of motion, supple Breasts: Present: Exam deferred Respiratory: Present: lungs clear, normal breath sounds Cardiovascular/Chest: Present: regular rate, rhythm, no chest tenderness Abdomen: Present: soft, nontender, nondistended /Rectal: Present: Exam deferred Extremity: Present: inflammation - left foot, other - amputee right lower leg Skin Exam: Present: normal color, warm/dry, no cyanosis Assessment/Plan Plan Narrative: Diabetic Ulcer with surrounding cellulitis - improving with IV antibiotics - currently on IV zosyn / IV vanco - Stop on 05/05/17 - final wound culture grew staph aureus (not MRSA), strep agalactiae group B, Enterobacter cloacae - spoke with Staci (pharm) recommend change abx: - Levaquin 750 mg iv daily - Day #2 - Probiotics ordered - Bone scan 05/04/17 c/w osteomyelitis - unable to do MRI due to patient's brain stimulator. - Dr. Velasco discussed treatment options with patient - to have toe amputated on wednesday05/07/17 Diabetes - hgba1c 6.6% - indicates good control - continue accu-checks QID with sliding scale as needed - consistent carb meals iron deficiency anemia - hgb on 05/03/17 8.0 - iron 10, TIBC 290, % sat 3 - 1 dose of 500 mg IV venofer given 05/04/17 - repeat in 2 weeks outpatient in the [facility]. - likely secondary to patient's history of gastric bypass surgery. HTN - vital signs q 4 hours hiccups - thorazine did not work - reglan 10 mg q 6 hours - worked initially but not working this am. - try one dose of iv protonix (? aggravated by GERD) - start baclofen 10 mg tid. Code status: Full Code VTE: heparin GI proph: protonix po. - Problems/Diagnosis (1) Iron deficiency anemia Problem: Chronic Qualifiers: Iron deficiency anemia type: other iron deficiency Qualified Code(s): D50.8 - Other iron deficiency anemias (2) Discharge planning issues Problem: Acute (3) Cellulitis Problem: Acute Qualifiers: Site of cellulitis: extremity Site of cellulitis of extremity: lower extremity Laterality: left Qualified Code(s): L03.116 - Cellulitis of left lower limb (4) Diabetic foot ulcer Problem: Acute Qualifiers: Diabetic foot ulcer location: toe Diabetes mellitus type: type 2 Laterality: left Non-pressure ulcer stage: with fat layer exposed Qualified Code(s): E11.621 - Type 2 diabetes mellitus with foot ulcer; L97.522 - Non- pressure chronic ulcer of other part of left foot with fat layer exposed (5) Diabetes mellitus Problem: Chronic Qualifiers: Diabetes mellitus type: type 2 Diabetes mellitus complication status: with skin complications Diabetes mellitus complication detail: with foot ulcer Diabetes mellitus group home insulin use: without terminal operator use Qualified Code( s): E11.621 - Type 2 diabetes mellitus with foot ulcer; L97.509 - Non-pressure chronic ulcer of other part of unspecified foot with unspecified severity (6) HTN (hypertension) Problem: Chronic Qualifiers: Hypertension type: essential hypertension Qualified Code(s): I10 - Essential (primary) hypertension
[2017-05-06] MEDS ORDERED: PANTOPRAZOLE SODIUM 40 MG in NORMAL SALINE 100 ML IV ONE (10:00)
[2017-05-06] MEDS: BACLOFEN 10 MG TABLET PO SCH ×2 (10:49→14:05)
[2017-05-06] MEDS: LEVOFLOXACIN/D5W 750 MG/150 ML BAG IV SCH (10:55)
[2017-05-06] MEDS: GABAPENTIN 300 MG CAPSULE PO SCH ×2 (15:11→22:49)
[2017-05-06] MEDS ORDERED: LORazepam 2 MG/ML DISP.SYRIN IV ONE (17:45)
[2017-05-06] MEDS: TAMSULOSIN HCL 0.4 MG CAP.SR.24H PO SCH (20:00)
[2017-05-07] MEDS: METOCLOPRAMIDE HCL 10 MG TABLET PO SCH ×4 (00:52→20:23)
[2017-05-07] MEDS: INSULIN LISPRO 100 UNITS/ML VIAL SC SCH ×4 (06:47→20:23)
[2017-05-07] MEDS: GABAPENTIN 300 MG CAPSULE PO SCH ×3 (06:48→22:49)
[2017-05-07] MEDS: SACCHAROMYCES BOULARDII 250 MG CAPSULE PO SCH ×2 (09:00→20:23)
[2017-05-07] MEDS: LEVOFLOXACIN/D5W 750 MG/150 ML BAG IV SCH (10:48)
[2017-05-07] MEDS: HEPARIN SODIUM,PORCINE 5,000 UNITS/ML VIAL SC SCH ×2 (10:54→22:49)
[2017-05-07] MEDS ORDERED: RINGER'S SOLUTION,LACTATED 1,000 ML IV ONE (12:00)
[2017-05-07] MEDS ORDERED: BUPIVACAINE HCL 50 ML VIAL IJ ONE (12:15)
[2017-05-07] MEDS ORDERED: LIDOCAINE HCL 50 ML VIAL IJ ONE (12:15)
[2017-05-07] MEDS: TAMSULOSIN HCL 0.4 MG CAP.SR.24H PO SCH (20:22)
[2017-05-07] MEDS: ACETAMINOPHEN 500 MG TABLET PO PRN (22:53)
--- NOTE | 2017-05-07 23:38 | PN ---
Subjective - Date and Time Seen Date: 05/07/17 Time: 17:12 Subjective Narrative: Hernandez reports feeling tired. But otherwise doing well after surgery. No fever, chills, n/v. Had amputation of infected bone today by Dr. Velasco. Objective - Vitals Vitals: Last Vital Signs Temp 36.5 C 05/07/17 23:11 Pulse 96 05/07/17 23:11 Resp 16 05/07/17 23:11 BP 132/66 05/07/17 23:11 Pulse Ox 95 05/07/17 23:11 - Exam Constitutional: Present: Alert, Oriented x3, Cooperative ENT Exam: Present: hearing grossly normal Respiratory: Present: lungs clear, normal breath sounds Cardiovascular/Chest: Present: regular rate, rhythm, no murmur Abdomen: Present: Normal bowel sounds, soft, nontender, nondistended Assessment/Plan - Problems/Diagnosis (1) Osteomyelitis Problem: Acute Qualifiers: Osteomyelitis type: acute hematogenous Osteomyelitis location: foot Laterality: left Qualified Code(s): M86.072 - Acute hematogenous osteomyelitis , left ankle and foot Narrative: Underwent amputation of left great today today for osteomyelitis due to diabetic foot ulcer. Will monitor overnight and if doing well, plan to discharge to home tomorrow with outpatient antibiotics. (2) Cellulitis Problem: Acute Qualifiers: Site of cellulitis: extremity Site of cellulitis of extremity: lower extremity Laterality: left Qualified Code(s): L03.116 - Cellulitis of left lower limb (3) Diabetes mellitus Problem: Chronic Qualifiers: Diabetes mellitus type: type 2 Diabetes mellitus complication status: with skin complications Diabetes mellitus complication detail: with foot ulcer Diabetes mellitus ad terminal makeup operator insulin use: without ad terminal makeup operator use Qualified Code( s): E11.621 - Type 2 diabetes mellitus with foot ulcer; L97.509 - Non-pressure chronic ulcer of other part of unspecified foot with unspecified severity; L97.509 - Non-pressure chronic ulcer of other part of unspecified foot with unspecified severity; L97.509 - Non-pressure chronic ulcer of other part of unspecified foot with unspecified severity; L97.509 - Non-pressure chronic ulcer of other part of unspecified foot with unspecified severity (4) Diabetic foot ulcer Problem: Acute Qualifiers: Diabetic foot ulcer location: toe Diabetes mellitus type: type 2 Laterality: left Non-pressure ulcer stage: with fat layer exposed Qualified Code(s): E11.621 - Type 2 diabetes mellitus with foot ulcer; L97.522 - Non- pressure chronic ulcer of other part of left foot with fat layer exposed; L97.522 - Non-pressure chronic ulcer of other part of left foot with fat layer exposed; L97.522 - Non-pressure chronic ulcer of other part of left foot with fat layer exposed; L97.522 - Non-pressure chronic ulcer of other part of left foot with fat layer exposed
[2017-05-08] MEDS: METOCLOPRAMIDE HCL 10 MG TABLET PO SCH ×2 (02:19→06:39)
[2017-05-08] MEDS: GABAPENTIN 300 MG CAPSULE PO SCH (06:38)
[2017-05-08] MEDS: INSULIN LISPRO 100 UNITS/ML VIAL SC SCH ×2 (06:39→11:47)
[2017-05-08 07:58] VITALS: BP 112/54
[2017-05-08] MEDS: SACCHAROMYCES BOULARDII 250 MG CAPSULE PO SCH (08:30)
--- NOTE | 2017-05-08 09:39 | DS ---
(1) Osteomyelitis Problem: Acute Qualifiers: Osteomyelitis type: acute hematogenous Osteomyelitis location: foot Laterality: left Qualified Code(s): M86.072 - Acute hematogenous osteomyelitis , left ankle and foot (2) Cellulitis Problem: Acute Qualifiers: Site of cellulitis: extremity Site of cellulitis of extremity: lower extremity Laterality: left Qualified Code(s): L03.116 - Cellulitis of left lower limb (3) Diabetes mellitus Problem: Chronic Qualifiers: Diabetes mellitus type: type 2 Diabetes mellitus complication status: with skin complications Diabetes mellitus complication detail: with foot ulcer Diabetes mellitus ferry terminal agent insulin use: without ferry terminal agent use Qualified Code( s): E11.621 - Type 2 diabetes mellitus with foot ulcer; L97.509 - Non-pressure chronic ulcer of other part of unspecified foot with unspecified severity; L97.509 - Non-pressure chronic ulcer of other part of unspecified foot with unspecified severity; L97.509 - Non-pressure chronic ulcer of other part of unspecified foot with unspecified severity; L97.509 - Non-pressure chronic ulcer of other part of unspecified foot with unspecified severity (4) Diabetic foot ulcer Problem: Acute Qualifiers: Diabetic foot ulcer location: toe Diabetes mellitus type: type 2 Laterality: left Non-pressure ulcer stage: with fat layer exposed Qualified Code(s): E11.621 - Type 2 diabetes mellitus with foot ulcer; L97.522 - Non- pressure chronic ulcer of other part of left foot with fat layer exposed; L97.522 - Non-pressure chronic ulcer of other part of left foot with fat layer exposed; L97.522 - Non-pressure chronic ulcer of other part of left foot with fat layer exposed; L97.522 - Non-pressure chronic ulcer of other part of left foot with fat layer exposed Description of Stay: Hernandez is a 66 yo diabetic who was admitted for cellulitis of left leg with diabetic foot ulcer. He was initially started on vancomycin and zosyn. There was concern for osteomyelitis. Due to having a deep brain stimulator a MRI was unable to be performed, but a bone scan was completed which showed evidence of osteomyelitis. Podiatry was consulted and discussed with the patient chcf antibiotic treatment vs amputation of infected tissue. Patient elected for surgery and amputation was performed. He did well with surgery and was monitored overnight and discharged the following morning. Based on wound cultures antibiotics were switched to levaquin. Procedures Performed: see notes below List Procedures: 05/07/17 - Amputation of Left Great Toe for osteomyelitis Discharge Disposition: Home self care Disposition: Home self-care Condition: Stable Discharge Activity: Partial-Weight bearing - Minimize weight bearing to left foot, wear surgical shoe at all times Discharge Diet: Consistent carbs Referrals: Carlos Luo DO [Primary Care Provider] - Minoo Velasco DPM [Staff Physician] - 05/10/17 Problem Oriented Discharge Instructions to Patient/Family: Bone and Joint Infections, Adult Additional Patient Instructions (free text): Please make TCM appointment at D/C. Please call Tiffany @ [phone]. Follow up with Dr. Luo on 05-17-17 @ 2:00pm. F/U with Dr Velasco on Thursday 05/10 @ 1:30pm in the Clinic not the wound center. Limit weight to left leg, wear surgical shoe at all times. Keep dressing clean, dry, and intact until follow up with Dr. Velasco. Prescriptions (Any new or edited meds): HYDROcodone/ACETAMINOPHEN [Hydrocodon-Acetaminophen 5-325] 1 each PO Q6H #30 tablet Levofloxacin [Levaquin] 750 mg PO DAILY #14 tablet Saccharomyces Boulardii [Florastor] 250 mg PO BID #28 capsule Complete Home Medications List: Complete Home Medication List: Tamsulosin HCl [Flomax] 0.4 mg PO HS 11/07/13 Blood Sugar Diagnostic, Drum [Accu-Chek Compact Plus Strips] 1 each MC DAILY 08/13 HYDROcodone/ACETAMINOPHEN [Hydrocodon-Acetaminophen 5-325] 1 each PO Q6H #30 tablet 05/08/17 Levofloxacin [Levaquin] 750 mg PO DAILY #14 tablet 05/08/17 Saccharomyces Boulardii [Florastor] 250 mg PO BID #28 capsule 05/08/17
[2017-05-08] MEDS: LEVOFLOXACIN/D5W 750 MG/150 ML BAG IV SCH (10:28)
[2017-05-08] MEDS: HEPARIN SODIUM,PORCINE 5,000 UNITS/ML VIAL SC SCH (10:28)
== END 2017-05-08 13:00 | disposition home or self-care (01) | DRG 617 ==
LOC: ER 18:40 → MS 21:53
PROVIDERS: ADMIT Nurse Practitioner; ATTEND Family Medicine
PROC: 0JBR0ZZ Excision of Left Foot Subcutaneous Tissue and Fascia, Open Approach (ICD-10-PCS; principal; 2017-05-04)
PROC: 0Y6Q0Z0 Detachment at Left 1st Toe, Complete, Open Approach (ICD-10-PCS; 2017-05-07)
DX: E11.621 Type 2 diabetes mellitus with foot ulcer (principal); L97.422 Non-pressure chronic ulcer of left heel and midfoot with fat layer exposed; M86.072 Acute hematogenous osteomyelitis, left ankle and foot; L03.116 Cellulitis of left lower limb; B95.62 Methicillin resistant Staphylococcus aureus infection as the cause of diseases classified elsewhere; D50.8 Other iron deficiency anemias; E11.40 Type 2 diabetes mellitus with diabetic neuropathy, unspecified; I10 Essential (primary) hypertension; Z98.890 Other specified postprocedural states; Z98.0 Intestinal bypass and anastomosis status; Z98.84 Bariatric surgery status; Z89.511 Acquired absence of right leg below knee
CPT/HCPCS: 11042; 28820; 36415; 73620; 78315; 80048; 80053; 83036; 83540; 83550; 83605; 85025; 85652; 86140; 87040; 87070; 87077; 87081; 87186; 88305; 88311; 93971; 96365; 99284; A9503; J1756

== ENCOUNTER 2017-06-25 16:21 | Inpatient (IN) | payer MEDICARE, OTHER ==
--- NOTE | 2017-06-25 16:56 | ERNOTE ---
Lower Extremity HPI - Narrative Date of Service: 06/25/17 - General Lower Extremities Pain: foot: left Time Seen by Provider: 06/25/17 16:34 Source: patient, family Exam Limitations: no limitations - Immun/Allergies/Home Medications Immunizations: IMMUNIZATION HX Immunizations Up to Date Yes History of Influenza Vaccine No Hx Pneumococcal Vaccination No Allergies/Adverse Reactions: Allergies Allergy/AdvReac Type Severity Reaction Status Date / Time Influenza Virus Vaccines AdvReac Vomiting Verified 06/25/17 16:26 Home Medications: HOME MEDICATIONS Tamsulosin HCl [Flomax] 0.4 mg PO HS 11/07/13 [Last Taken Unknown] Blood Sugar Diagnostic, Drum [Accu-Chek Compact Plus Strips] 1 each MC DAILY 08/13 [Last Taken Unknown] HYDROcodone/ACETAMINOPHEN [Hydrocodon-Acetaminophen 5-325] 1 each PO Q6H #30 tablet 05/08/17 [Last Taken Unknown] Saccharomyces Boulardii [Florastor] 250 mg PO BID #28 capsule 05/08/17 [Last Taken Unknown] - History of Present Illness Narrative: Pt. comes in with c/o L foot pain for three days and increased drainage. Pt. had his L great toe removed then revised two days ago and pt. states that today pain became unbearable and the dressing is being soaked every 15 minutes. Pt. denies any SOB, CP, NVD, but does state that he had a fever and malaise. Pt. states taht he called Dr Velasco's office and they recommend he come here. Review of Systems - Review of Systems Constitutional: Present: fever, chills. Absent: recent illness, weakness, fatigue, malaise EYE: Present: no symptoms reported ENT: Present: no symptoms reported Respiratory: Present: no symptoms reported. Absent: shortness of breath, cough , wheezing Cardiology: Present: no symptoms reported. Absent: chest pain, palpitations, edema Gastrointestinal/Abdominal: Present: no symptoms reported Genitourinary: Present: no symptoms reported Musculoskeletal: Present: joint pain - L foot Skin: Present: no symptoms reported. Absent: rash, change in color Neurological: Present: no symptoms reported. Absent: headache, dizziness/light- headedness, numbness, tingling All Other Systems: All systems neg except as marked - Patient's Past Medical History Patient History - Medical: Diabetes Type 2, Kidney stone, Osteoarthritis, UTI'S Patient History - Cardiac/Respiratory: Hypertension, Hyperlipidemia, Pulmonary Embolism, Sleep Apnea Patient History - Cancer: No Hx of Cancer Patient History - Surgical Procedures: Amputation, Gastric Bypass, Total Knee Replacement, Other Patient History - Other: None - Family History Mother Family History - Medical: , Diabetes Type 2 Family History - Cardiac/Respiratory: No pertinent hx Father Family History - Medical: Family History - Cardiac/Respiratory: Coronary Heart Disease, COPD Grandmother-Paternal Family History - Medical: , Diabetes Type 2 Family History - Cardiac/Respiratory: No pertinent hx Grandmother-Maternal Family History - Medical: , Diabetes Type 2 Family History - Cardiac/Respiratory: No pertinent hx - Social History Living Situations: home Abuse History: No History of abuse Psych History: No pertinent hx Smoking Status: Former smoker - Immunizations Immunizations Up to Date: Yes Hx Pneumococcal Vaccination: No History of Influenza Vaccine: No Physical Exam - Physical Exam General Appearance: Present: wd/wn, alert, no apparent distress Head Exam: Present: normal inspection, no evidence of injury Eye Exam: Normal inspection: bilateral, PERRL: bilateral, EOMI: bilateral Neck: Present: normal inspection, nontender Respiratory: Present: no respiratory distress, normal breath sounds, no accessory muscle use, chest nontender, lungs clear. Absent: rales, rhonchi, wheezing Cardiovascular/Chest: Present: regular rate, rhythm, no murmur, normal peripheral pulses Gastrointestinal/Abdominal: Present: normal bowel sounds, nontender, nondistended, soft, no organomegaly Back Exam: Present: normal inspection Extremity Exam: Present: joint redness - L foot and ankle, joint swelling - L foot and ankle Neurological Exam: Present: alert, oriented, normal mood/affect, no motor/ sensory deficits Skin Exam: Present: warm/dry, other - redness as described above ED Progress - Date and Time Seen: Date and Time: [address] Velasco and left message on voicemail 06/25/17 18:[address] Gloria and agrees to admit pt. in hopes that Dr Velasco can operate on his foot. 06/25/17 18:39 Dr Velasco calls back and agrees to consult on pt. and move up surgery to early next week. - Results and Orders Patient's Lab Results:: I have reviewed the patient's lab results. - Vital Signs Patient's Vital Signs:: I have reviewed the patient's vital signs. Vital Signs: Vital Signs 06/25/17 16:26 Temperature 37.5 C Pulse Rate 101 H Respiratory 18 Rate Blood Pressure 116/71 O2 Sat by Pulse 99 Oximetry - X-Ray X-Ray #1 X-Ray: foot Interpretation: Reviewed by me X-ray Comments: osteomylitis L metatarsal head - Progress/Reassessment Chief Complaint: Foot Injury/Pain Progress:: Unchanged Departure Clinical Impression: Acute osteomyelitis - Departure Disposition: [facility] Condition: Serious Referrals: Minoo Vleasco DPM [Primary Care Provider] -
[2017-06-25 17:08] LABS: Hematocrit 34.4 % (42.0-52.0); Hemoglobin 11.1 gm/dL (13.5-18.0); Mean Cell Volume 76.4 fl (78-100); Mean Corpuscular Hemoglobin 24.7 pg (27-31); Mean Corpuscular Hgb Conc 32.3 g/dl (32-36); Mean Platelet Volume 7.9 fl (6.0-9.5); Neutrophil # 7.2 K/mm3 (1.3-6.0); Neutrophil % 76.4 % (42-75.0); Platelet Count 183 K/mm3 (150-450); Red Cell Distribution Width 19.2 % (11.5-14.0); White Blood Count 9.4 K/mm3 (4.0-10.5)
[2017-06-25] MEDS: SODIUM CHLORIDE IV PRN ×3 (17:14→19:56)
[2017-06-25 17:22] LABS: Albumin * 3.1 gm/dl (3.4-5.0); Anion Gap 9.7 mmol/L (6.8-13.8); BUN/Creatinine Ratio 10.3 (9.0-21.6); Bilirubin, Total 0.3 mg/dL (0.0-1.1); CRP 10.5 mg/dL (0.0-0.9); Ca. Corrected For Albumin 8.9 mg/dL (8.4-10.2); Calcium * 8.5 mg/dL (7.9-10.9); Carbon Dioxide 29.2 mmol/L (24-32.6); Potassium 3.9 mmol/L (3.4-4.6); Total Protein 7.3 gm/dL (6.2-8.2)
[2017-06-25] MEDS ORDERED: KETOROLAC TROMETHAMINE 30 MG/ML VIAL IV ONE (17:28)
[2017-06-25] MEDS ORDERED: KETOROLAC TROMETHAMINE 30 MG/ML VIAL ONE (17:40)
[2017-06-25] MEDS ORDERED: VANCOMYCIN HCL 1 GM in DEXTROSE 5 % IN WATER 250 ML IV ONE ×2 (18:34)
[2017-06-25] MEDS ORDERED: PIPERACILLIN SODIUM/TAZOBACTAM 3.375 GM in DEXTROSE 5 % IN WATER 100 ML IV ONE ×2 (18:34)
[2017-06-25] MEDS ORDERED: ACETAMINOPHEN 500 MG TABLET PO ONE (19:05)
[2017-06-25] MEDS: SACCHAROMYCES BOULARDII 250 MG CAPSULE PO SCH (21:48)
--- NOTE | 2017-06-26 00:54 | HP ---
Chief Complaint - Chief Complaint Date of Service: 06/25/17 Time of Service: 22:00 Chief Complaint: left foot pain History of Present Illness: 66 years old WM adm to the hospital with reports of left foot pain, fever and chills. PMH significant for cellulitis, osteomyelitis, right foot amputation, diabetes neuropathy,sleep apnea and PE.pt stated he had left great toe amputation 05/07/[address] Velasco. On Wednesday he had debridement of the left metatarsal head. On night he report malaise, fever and chills.He called Dr Velasco office for appt but was instructed to come ER. In ER Foot X-Ray : Osteomyelitis of the head of the first metatarsal. small radiopaque foreign density. IV antbx was initiated in ER, blood culture and wound culture obtained result pending. plan of care discussed with pt he verbalized understanding and agree. - Patient's Past Medical History Patient History - Medical: Diabetes Type 2, Kidney stone, Osteoarthritis, UTI'S Patient History - Cardiac/Respiratory: Hypertension, Hyperlipidemia, Pulmonary Embolism, Sleep Apnea Patient History - Cancer: No Hx of Cancer Patient History - Surgical Procedures: Amputation, Gastric Bypass, Total Knee Replacement, Other Patient History - Other: None - Family History Mother Family History - Medical: , Diabetes Type 2 Family History - Cardiac/Respiratory: No pertinent hx Father Family History - Medical: Family History - Cardiac/Respiratory: Coronary Heart Disease, COPD Grandmother-Paternal Family History - Medical: , Diabetes Type 2 Family History - Cardiac/Respiratory: No pertinent hx Grandmother-Maternal Family History - Medical: , Diabetes Type 2 Family History - Cardiac/Respiratory: No pertinent hx - Social History Living Situations: home Abuse History: No History of abuse Psych History: No pertinent hx Smoking Status: Former smoker Have you smoked in the past 12 months: No Do you dip or chew tobacco: No Smoking Stop Date: 06/25/96 Alcohol Use: occasionally Drug Use: none - Immunizations Immunizations Up to Date: Yes Hx Pneumococcal Vaccination: No History of Influenza Vaccine: No Review Of Systems (GEN) - Review of Systems Generalized/Overall Review: Present: Chills, Fever, Malaise EENTM: Present: No Symptoms Reported Respiratory: Present: Cough Cardiac: Present: No Symptoms Reported Abdominal: Present: No Symptoms Reported Genitourinary: Present: No Symptoms Reported Musculoskeletal: Present: Other - left foot pain Neurological: Present: Tremors Skin: Present: Other Endocrine: Present: No Symptoms Reported Allergies/Adverse Reactions: Allergies Allergy/AdvReac Type Severity Reaction Status Date / Time Influenza Virus Vaccines AdvReac Vomiting Verified 06/25/17 16:26 Home Medications: HOME MEDICATIONS Tamsulosin HCl [Flomax] 0.4 mg PO HS 11/07/13 [Last Taken Unknown] Blood Sugar Diagnostic, Drum [Accu-Chek Compact Plus Strips] 1 each MC DAILY 08/13 [Last Taken Unknown] HYDROcodone/ACETAMINOPHEN [Hydrocodon-Acetaminophen 5-325] 1 each PO Q6H #30 tablet 05/08/17 [Last Taken Unknown] Saccharomyces Boulardii [Florastor] 250 mg PO BID #28 capsule 05/08/17 [Last Taken Unknown] Exam - Exam Vital Signs: Vital Signs - Last Taken Temp 36.5 C 06/26/17 00:09 Pulse 70 06/26/17 00:09 Resp 18 06/26/17 00:09 BP 111/49 06/26/17 00:09 Pulse Ox 97 06/26/17 00:09 Constitutional: Present: Alert, Oriented x3, Cooperative, No distress, Middle aged ENT Exam: Present: hearing grossly normal Eye Exam: bilateral eye: normal inspection Neck: Present: full range of motion Back Exam: Present: normal inspection Breasts: Present: Exam deferred Respiratory: Present: chest non-tender, lungs clear, normal breath sounds, no respiratory distress Cardiovascular/Chest: Present: normal peripheral pulses, regular rate, rhythm, no chest tenderness, no edema Peripheral Pulses: dorsalis-pedis (R): 0 - amputation, dorsalis-pedis (L): 0 - pulse by doppler Abdomen: Present: Normal bowel sounds, soft, nontender, nondistended /Rectal: Present: Exam deferred Extremity: Present: lower extremity edema - left leg,, pedal edema, slow capillary refill, swelling, other - right foot amputation, left foot pulse by doppler Skin Exam: Present: no cyanosis, cool/dry Neurologic: Present: oriented x 3 Appearance: Present: appropriate appearance Eye contact: Present: cooperative Thoughts: Present: normal thought pattern Diagnostic Studies: Laboratory Results WBC 9.4 K/mm3 (4.0-10.5) 06/25/17 17:03 RBC 4.50 M/mm3 (4.7-6.0) L 06/25/17 17:03 Hgb 11.1 gm/dL (13.5-18.0) L 06/25/17 17:03 Hct 34.4 % (42.0-52.0) L 06/25/17 17:03 MCV 76.4 fl (78-100) L 06/25/17 17:03 MCH 24.7 pg (27-31) L 06/25/17 17:03 MCHC 32.3 g/dl (32-36) 06/25/17 17:03 RDW 19.2 % (11.5-14.0) H 06/25/17 17:03 Plt Count 183 K/mm3 (150-450) 06/25/17 17:03 MPV 7.9 fl (6.0-9.5) 06/25/17 17:03 Immature Gran % (Auto) 0.60 % (0.001-0.429) H 06/25/17 17:03 Immature Gran # (Auto) 0.06 K/mm3 (0.000-0.0310) H 06/25/17 17:03 Neutrophils % 76.4 % (42-75.0) H 06/25/17 17:03 Lymphocytes % 13.6 % (20-51) L 06/25/17 17:03 Monocytes % 8.6 % (0.0-9) 06/25/17 17:03 Eosinophils % 0.3 % (0.0-3.0) 06/25/17 17:03 Basophils % 0.5 % (0.0-1.0) 06/25/17 17:03 Nucleated RBC % 0.0 k/mm3 (0-1) 06/25/17 17:03 Neutrophils # 7.2 K/mm3 (1.3-6.0) H 06/25/17 17:03 Lymphocytes # 1.3 k/mm3 (1.5-3.5) L 06/25/17 17:03 Monocytes # 0.8 k/mm3 (0.0-1.0) 06/25/17 17:03 Eosinophils # 0.0 k/mm3 (0.0-0.7) 06/25/17 17:03 Absolute Basophils 0.1 k/mm3 (0.0-0.1) 06/25/17 17:03 ESR 37 mm/hr (0-10) H 06/25/17 17:03 Sodium 135 mmol/L (132-142) 06/25/17 17:03 Plasma Sodium 137 mmol/L (130-142) 06/25/17 17:03 Potassium 3.9 mmol/L (3.4-4.6) 06/25/17 17:03 Chloride 100 mmol/L (97-106) 06/25/17 17:03 Carbon Dioxide 29.2 mmol/L (24-32.6) 06/25/17 17:03 Anion Gap 9.7 mmol/L (6.8-13.8) 06/25/17 17:03 BUN 9 mg/dL (6-23) 06/25/17 17:03 Creatinine 0.87 mg/dL (0.4-1.4) 06/25/17 17:03 Est GFR (Non-Af Amer) 94 mL/min (60-130) 06/25/17 17:03 BUN/Creatinine Ratio 10.3 (9.0-21.6) 06/25/17 17:03 Random Glucose 204 mg/dL (70-110) H 06/25/17 17:03 Lactic Acid, Venous 1.8 mmol/L (0.4-1.9) 06/25/17 17:03 Calcium 8.5 mg/dL (7.9-10.9) 06/25/17 17:03 Calcium Adj for Albumin 8.9 mg/dL (8.4-10.2) 06/25/17 17:03 Total Bilirubin 0.3 mg/dL (0.0-1.1) 06/25/17 17:03 AST 14 U/L (0-48) 06/25/17 17:03 ALT 16 U/L (19-67) L 06/25/17 17:03 Alkaline Phosphatase 91 U/L (50-170) 06/25/17 17:03 C-Reactive Prot, Quant 10.5 mg/dL (0.0-0.9) H 06/25/17 17:03 Total Protein 7.3 gm/dL (6.2-8.2) 06/25/17 17:03 Albumin 3.1 gm/dl (3.4-5.0) L 06/25/17 17:03 Foot X-Ray: Osteomyelitis of the head of the first metatarsal. small radiopaque foreign density. Assessment/Plan - Narrative Narrative: Acute osteomyelitis Foot X-Ray: Osteomyelitis of the head of the first metatarsal. small radiopaque foreign density. Continue with vancomycin and Zosyn Blood cultures and wound culture pending Dr. Velasco following Diabetes Monitor Accu-check and resume home medications Consistent carb diet code status: Full GI ppx: pepcid VTE ppx: possible further amputation, holding heparin for now Time 45 minutes and case discussed with Dr Gloria - Assessment/Plan (1) Acute osteomyelitis Problem: Acute (2) Cellulitis Problem: Chronic Qualifiers: Site of cellulitis: extremity Site of cellulitis of extremity: lower extremity Laterality: left Qualified Code(s): L03.116 - Cellulitis of left lower limb (3) Diabetes mellitus Problem: Chronic Qualifiers: Diabetes mellitus type: type 2 Diabetes mellitus complication status: with skin complications Diabetes mellitus complication detail: with foot ulcer Diabetes mellitus rat exterminator insulin use: without rat exterminator use Qualified Code( s): E11.621 - Type 2 diabetes mellitus with foot ulcer; L97.509 - Non-pressure chronic ulcer of other part of unspecified foot with unspecified severity; L97.509 - Non-pressure chronic ulcer of other part of unspecified foot with unspecified severity; L97.509 - Non-pressure chronic ulcer of other part of unspecified foot with unspecified severity; L97.509 - Non-pressure chronic ulcer of other part of unspecified foot with unspecified severity (4) HTN (hypertension) Problem: Chronic Qualifiers: Hypertension type: essential hypertension Qualified Code(s): I10 - Essential (primary) hypertension
[2017-06-26] MEDS: PIPERACILLIN SODIUM/TAZOBACTAM 3.375 GM in DEXTROSE 5 % IN WATER 100 ML IV SCH ×6 (02:27→18:28)
[2017-06-26] MEDS: FAMOTIDINE 20 MG TABLET PO SCH ×2 (06:42→08:13)
[2017-06-26] MEDS: HYDROcodone/ACETAMINOPHEN 1 EACH TABLET PO SCH ×3 (06:42→17:46)
[2017-06-26] MEDS: HEPARIN SODIUM,PORCINE 5,000 UNITS/ML VIAL SC SCH ×2 (08:12→18:27)
[2017-06-26] MEDS: SACCHAROMYCES BOULARDII 250 MG CAPSULE PO SCH ×2 (08:13→20:06)
[2017-06-26] MEDS ORDERED: SACCHAROMYCES BOULARDII 250 MG CAPSULE PO SCH (09:00)
[2017-06-26] MEDS: VANCOMYCIN HCL 1.75 GM in DEXTROSE 5 % IN WATER 500 ML IV SCH ×4 (10:17→23:15)
[2017-06-26] MEDS ORDERED: VANCOMYCIN HCL 1 GM in DEXTROSE 5 % IN WATER 250 ML IV SCH ×2 (19:30)
[2017-06-26] MEDS: TAMSULOSIN HCL 0.4 MG CAP.SR.24H PO SCH (20:06)
[2017-06-27] MEDS: HYDROcodone/ACETAMINOPHEN 1 EACH TABLET PO SCH ×4 (01:57→17:59)
[2017-06-27] MEDS: PIPERACILLIN SODIUM/TAZOBACTAM 3.375 GM in DEXTROSE 5 % IN WATER 100 ML IV SCH ×6 (01:58→18:00)
[2017-06-27] MEDS: HEPARIN SODIUM,PORCINE 5,000 UNITS/ML VIAL SC SCH ×2 (08:03→17:58)
[2017-06-27] MEDS: FAMOTIDINE 20 MG TABLET PO SCH (08:04)
[2017-06-27] MEDS: SACCHAROMYCES BOULARDII 250 MG CAPSULE PO SCH ×2 (08:04→20:27)
[2017-06-27] MEDS: VANCOMYCIN HCL 1.75 GM in DEXTROSE 5 % IN WATER 500 ML IV SCH ×4 (10:02→20:28)
--- NOTE | 2017-06-27 11:04 | CONS ---
- Reason for consultation (1) Acute osteomyelitis Date of Service: 06/27/17 (2) Diabetic foot ulcer Date of Service: 06/27/17 (3) Cellulitis Date of Service: 06/27/17 HPI - General Date of Service: 06/27/17 Narrative: Pt seen at bedside resting. Called to my office on Wednesday afternoon with c/o increasing tenderness about the left foot with associated fever, chills, and nausea. Was advised to go to the ED as I was not in office that afternoon to evaluate him. On presentation, was noted to have redness to his ankle and purulent drainage. Tenderness present to distal lower leg. He was admitted. Xrays showing concern for osteomyelitis. He has already been scheduled for 1st metatarsal head resection in a few weeks due to osteomyelitis of this bone, however the condition of his foot at that time was more stable. I was consulted for surgical evaluation. Source: patient Exam Limitations: no limitations - History of Present Illness Allergies/Adverse Reactions: Allergies Influenza Virus Vaccines Adverse Reaction (Verified 06/25/17 16:26) Vomiting Home Medications: Home Medications Medication Instructions Recorded Last Taken Tamsulosin HCl [Flomax] 0.4 mg PO HS 11/07/13 Unknown Blood Sugar Diagnostic, Drum 1 each MC DAILY 01/08/15 Unknown [Accu-Chek Compact Plus Strips] - Patient's Past Medical History Patient History - Medical: Diabetes Type 2, Kidney stone, Osteoarthritis, UTI'S Patient History - Cardiac/Respiratory: Hypertension, Hyperlipidemia, Pulmonary Embolism, Sleep Apnea Patient History - Cancer: No Hx of Cancer Patient History - Surgical Procedures: Amputation, Gastric Bypass, Total Knee Replacement, Other Patient History - Other: None - Family History Mother Family History - Medical: , Diabetes Type 2 Family History - Cardiac/Respiratory: No pertinent hx Father Family History - Medical: Family History - Cardiac/Respiratory: Coronary Heart Disease, COPD Grandmother-Paternal Family History - Medical: , Diabetes Type 2 Family History - Cardiac/Respiratory: No pertinent hx Grandmother-Maternal Family History - Medical: , Diabetes Type 2 Family History - Cardiac/Respiratory: No pertinent hx - Social History Living Situations: home Abuse History: No History of abuse Psych History: No pertinent hx Smoking Status: Former smoker Have you smoked in the past 12 months: No Do you dip or chew tobacco: No Smoking Stop Date: 06/25/96 Alcohol Use: occasionally Drug Use: none - Immunizations Immunizations Up to Date: Yes Hx Pneumococcal Vaccination: No History of Influenza Vaccine: No Procedures BONE BIOPSY NEC (04/22/10) CLOSURE SKIN & SUBCUTANEOUS NEC (01/29/14) DETACHMENT AT LEFT 1ST TOE, COMPLETE, OPEN APPROACH (05/01/17) DPT ADMINISTRATION (12/19/11) DRESSING OF WOUND NEC (07/23/10) EXC CHEST CAGE BONE LES (06/22/06) EXCIS DEBRIDE OF WOUND, INFECT, OR BURN (07/12/10) EXCISION OF L FOOT SUBCU/FASCIA, OPEN APPROACH (05/01/17) FREE SKIN GRAFT NEC (12/09/07) INC SOFT TISSUE HAND NEC (03/14/08) LOC EXC LES METATAR/TAR (07/12/10) NONEXCIS DEBRID OF WOUND, INFECT, OR BURN (10/18/07) OTH ARTHROTOMY-ANKLE (10/18/07) OTH ARTHROTOMY-SHOULDER (05/06/06) OTH CHEST CAGE OSTECTOMY (05/06/06) REMOV INT FIX-METAT/TAR (07/23/10) SOFT TISSUE INCISION NEC (10/18/07) SUTURE OF VEIN (10/18/07) TOTAL KNEE REPLACEMENT (01/14/15) TRIPLE ARTHRODESIS (06/30/10) ULTRASONOGRAPHY OF BLADDER (08/31/16) URETERAL CATHETERIZATION (11/08/13) URETHRAL DILATION (03/17/04) URETHROSCOPY NEC (04/23/09) VENOUS CATHETERIZATION NEC (07/12/10) Medications - Medications Current Medications: Current Medications Acetaminophen/Hydrocodone Bitart ([place] 5-325) 1 each PO Q6H MINISTERIO Stop: 07/26/17 06:01 Last Admin: 06/27/17 07:39 Dose: 1 each Famotidine (Pepcid) 20 mg PO DAILY MINISTERIO Stop: 07/26/17 05:01 Last Admin: 06/27/17 08:04 Dose: 20 mg Heparin Sodium (Porcine) (Heparin Sodium) 5,000 units SC Q12H MINISTERIO Stop: 07/26/17 06:31 Last Admin: 06/27/17 08:03 Dose: 5,000 units Sodium Chloride (Sodium Chloride 0.9%) 2,790 mls @ 999 mls/hr IV .Q2H48M PRN PRN Reason: HYDRATION Stop: 07/25/17 16:45 Last Infusion: 06/25/17 22:44 Dose: Infused Piperacillin Sod/Tazobactam (Sod 3.375 gm/ Dextrose/Water) 100 mls @ 25 mls/hr IV Q8H MINISTERIO PRN Reason: Protocol Stop: 07/26/17 02:31 Last Admin: 06/27/17 10:01 Dose: 25 mls/hr Vancomycin HCl 1.75 gm/ (Dextrose/Water) 500 mls @ 140 mls/hr IV Q12H MINISTERIO PRN Reason: Protocol Stop: 07/26/17 09:01 Last Admin: 06/27/17 10:02 Dose: 140 mls/hr Saccharomyces Boulardii (Florastor) 250 mg PO BID MINISTERIO Stop: 07/25/17 21:01 Last Admin: 06/27/17 08:04 Dose: 250 mg Tamsulosin HCl (Flomax) 0.4 mg PO HS MINISTERIO Stop: 07/26/17 21:01 Last Admin: 06/26/17 20:06 Dose: 0.4 mg Review of Systems - Review of Systems Neurological: Present: Numbness Skin: Present: Other - Ulceration left foot, h/o BKA right LE Physical Examination - Exam Vital Signs: Vital Signs - Last Taken Temp 36.8 C 06/27/17 10:00 Pulse 71 06/27/17 10:00 Resp 18 06/27/17 10:00 BP 110/78 06/27/17 10:00 Pulse Ox 97 06/27/17 10:00 O2 Oxygen Delivery Method Room Air Constitutional: Present: Alert, Oriented x3, Cooperative, No distress Peripheral Pulses: dorsalis-pedis (L): 1+ Extremity: Present: other - Right BKA Skin Exam: Present: other - Ulceration to left foot at previous amputation site of the great toe measuring 2.2 x 1.1 x 1.5 cm. No tunneling or undermining. Loss of tissue to full thickness with exposure of subcutaneous fat layer. Base with mix of granulation and fibrinous tissue. Surrounding tissue with slight maceration and localized erythema. Moderate serosanguinous drainage, no malodor present. No exposed tendon, however bone is visible. Ulceration to medial 1st metatarsal head left foot measuring 0.8 x 0.8 x 0.3 cm. No tunneling or undermining. Loss of tissue to full thickness with exposure of subcutaneous fat layer. Base with mostly fibrinous tissue, minimal granulation intermixed. Surrounding tissue macerated, localized erythema present. Moderate serosanguinous drainage, no malodor present. No exposed tendon or bone. Neurologic: Present: sensory deficit - Results and Findings: Lab/Microbiology results last 24 hrs: Culture 06/25/17 Unknown Wound Culture - Preliminary Foot - Left No Growth - Assessments/Findings (1) Acute osteomyelitis Diagnosis(s): Discussed diagnosis and treatment plan with pt at bedside. He was already scheduled to have the 1st metatarsal head resected in a few weeks due to osteomyelitis, however at the time of scheduling, foot was stable. Now with new infection, will plan to go to OR either tomorrow or Wednesday. Will coordinate time with OR and place orders accordingly. Problem: Acute (2) Diabetic foot ulcer Diagnosis(s): Continue daily dressings with Aquacel Ag, dry gauze, connie, and ANIKA bandage. Plan for surgical debridement as discussed. Problem: Acute Qualifiers: Diabetic foot ulcer location: toe Diabetes mellitus type: type 2 Laterality: left Non-pressure ulcer stage: with fat layer exposed Qualified Code(s): E11.621 - Type 2 diabetes mellitus with foot ulcer; L97.522 - Non- pressure chronic ulcer of other part of left foot with fat layer exposed; L97.522 - Non-pressure chronic ulcer of other part of left foot with fat layer exposed; L97.522 - Non-pressure chronic ulcer of other part of left foot with fat layer exposed; L97.522 - Non-pressure chronic ulcer of other part of left foot with fat layer exposed (3) Cellulitis Diagnosis(s): Continue IV ABX. Will adjust pending OR cultures. Problem: Chronic Qualifiers: Site of cellulitis: extremity Site of cellulitis of extremity: lower extremity Laterality: left Qualified Code(s): L03.116 - Cellulitis of left lower limb
[2017-06-27] MEDS: TAMSULOSIN HCL 0.4 MG CAP.SR.24H PO SCH (20:27)
[2017-06-28] MEDS: HYDROcodone/ACETAMINOPHEN 1 EACH TABLET PO SCH ×4 (01:10→19:17)
[2017-06-28] MEDS: PIPERACILLIN SODIUM/TAZOBACTAM 3.375 GM in DEXTROSE 5 % IN WATER 100 ML IV SCH ×6 (02:11→19:02)
[2017-06-28] MEDS: HEPARIN SODIUM,PORCINE 5,000 UNITS/ML VIAL SC SCH ×2 (06:03→19:02)
[2017-06-28] MEDS ORDERED: VANCOMYCIN HCL LEVEL XX ONE (08:30)
[2017-06-28] MEDS: VANCOMYCIN HCL 1.75 GM in DEXTROSE 5 % IN WATER 500 ML IV SCH ×4 (09:22→20:56)
[2017-06-28] MEDS: SACCHAROMYCES BOULARDII 250 MG CAPSULE PO SCH ×2 (09:22→20:55)
[2017-06-28] MEDS: FAMOTIDINE 20 MG TABLET PO SCH (09:23)
[2017-06-28] MEDS ORDERED: BUPIVACAINE HCL 50 ML VIAL IJ ONE (12:29)
[2017-06-28] MEDS ORDERED: LIDOCAINE HCL 50 ML VIAL IJ ONE (12:29)
[2017-06-28] MEDS ORDERED: NORMAL SALINE 1,000 ML IV ONE (13:29)
[2017-06-28] MEDS: TAMSULOSIN HCL 0.4 MG CAP.SR.24H PO SCH (20:55)
--- NOTE | 2017-06-28 23:26 | PN ---
Subjective - Date and Time Seen Date: 06/28/17 Time: 16:23 Subjective Narrative: Hernandez reports doing well. Pain controlled. Still tired after surgery, no concerns. No fever, chills, n/v. Surgery went well. Diseased bone sent for bone culture. Objective - Vitals Vitals: Last Vital Signs Temp 36.7 C 06/28/17 21:02 Pulse 71 06/28/17 21:02 Resp 16 06/28/17 21:02 BP 144/69 06/28/17 21:02 Pulse Ox 100 06/28/17 21:02 - Exam Constitutional: Present: Alert, Oriented x3, Cooperative ENT Exam: Present: hearing grossly normal Respiratory: Present: lungs clear, normal breath sounds Cardiovascular/Chest: Present: regular rate, rhythm, no murmur Abdomen: Present: Normal bowel sounds, soft, nontender, nondistended Assessment/Plan Plan Narrative: POD#0 Amputation of infected bone. Pending bone culture results. Will continue IV antibiotics until switching to orals based on bone culture. - Problems/Diagnosis (1) Acute osteomyelitis Problem: Acute (2) Diabetic foot ulcer Problem: Acute Qualifiers: Diabetic foot ulcer location: toe Diabetes mellitus type: type 2 Laterality: left Non-pressure ulcer stage: with fat layer exposed Qualified Code(s): E11.621 - Type 2 diabetes mellitus with foot ulcer; L97.522 - Non- pressure chronic ulcer of other part of left foot with fat layer exposed; L97.522 - Non-pressure chronic ulcer of other part of left foot with fat layer exposed; L97.522 - Non-pressure chronic ulcer of other part of left foot with fat layer exposed; L97.522 - Non-pressure chronic ulcer of other part of left foot with fat layer exposed
[2017-06-29] MEDS: HYDROcodone/ACETAMINOPHEN 1 EACH TABLET PO SCH ×5 (00:09→17:46)
[2017-06-29] MEDS: PIPERACILLIN SODIUM/TAZOBACTAM 3.375 GM in DEXTROSE 5 % IN WATER 100 ML IV SCH ×6 (03:49→17:44)
[2017-06-29] MEDS: HEPARIN SODIUM,PORCINE 5,000 UNITS/ML VIAL SC SCH ×2 (05:44→17:44)
[2017-06-29] MEDS: SACCHAROMYCES BOULARDII 250 MG CAPSULE PO SCH ×2 (08:22→20:57)
[2017-06-29] MEDS: FAMOTIDINE 20 MG TABLET PO SCH (08:22)
[2017-06-29] MEDS: VANCOMYCIN HCL 1.75 GM in DEXTROSE 5 % IN WATER 500 ML IV SCH ×4 (11:15→21:02)
--- NOTE | 2017-06-29 14:29 | PN ---
Subjective - Date and Time Seen Date: 06/26/17 Time: 14:27 Subjective Narrative: Patient seen and examined at bedside. No acute issues overnight. Pain adequately controlled at the time of my exam. Objective - Review of Systems Generalized/Overall Review: Reports: No Symptoms Reported EENTM: Reports: No Symptoms Reported Respiratory: Reports: No Symptoms Reported Cardiac: Reports: No Symptoms Reported Abdominal: Reports: No Symptoms Reported Genitourinary Symptoms: Reports: No Symptoms Reported Musculoskeletal Complaints: Reports: No Symptoms Reported Neurological: Reports: No Symptoms Reported Skin: Reports: No Symptoms Reported Endocrine: Reports: No Symptoms Reported Misc: All systems neg except as marked - Vitals Vitals: Last Vital Signs Temp 36.4 C L 06/29/17 10:36 Pulse 98 06/29/17 10:36 Resp 18 06/29/17 10:36 BP 116/77 06/29/17 10:36 Pulse Ox 100 06/29/17 10:36 - Exam Constitutional: Present: Alert, Oriented x3, Cooperative, No distress ENT Exam: Present: hearing grossly normal, moist mucous membranes Respiratory: Present: lungs clear, normal breath sounds, no respiratory distress , no accessory muscle use Cardiovascular/Chest: Present: regular rate, rhythm Abdomen: Present: soft, nontender, nondistended Extremity: Present: other - Left foot with dressing in place and foot in boot Neurologic: Present: alert, normal mood/affect, oriented x 3 Appearance: Present: appropriate appearance, no memory impairment Eye contact: Present: cooperative, good eye contact Thoughts: Present: no apparent hallucination Assessment/Plan Plan Narrative: Continue current IV antibiotics. Continue dressing changes per Dr. Velasco's recommendations. Plan for OR next week. - Problems/Diagnosis (1) Acute osteomyelitis Problem: Acute (2) Diabetic foot ulcer Problem: Acute Qualifiers: Diabetic foot ulcer location: toe Diabetes mellitus type: type 2 Laterality: left Non-pressure ulcer stage: with fat layer exposed Qualified Code(s): E11.621 - Type 2 diabetes mellitus with foot ulcer; L97.522 - Non- pressure chronic ulcer of other part of left foot with fat layer exposed; L97.522 - Non-pressure chronic ulcer of other part of left foot with fat layer exposed; L97.522 - Non-pressure chronic ulcer of other part of left foot with fat layer exposed; L97.522 - Non-pressure chronic ulcer of other part of left foot with fat layer exposed (3) Cellulitis Problem: Chronic Qualifiers: Site of cellulitis: extremity Site of cellulitis of extremity: lower extremity Laterality: left Qualified Code(s): L03.116 - Cellulitis of left lower limb
--- NOTE | 2017-06-29 14:32 | PN ---
Subjective - Date and Time Seen Date: 06/27/17 Time: 14:31 Subjective Narrative: Patient seen and examined at bedside. No acute issues overnight. Pain adequately controlled at the time of my exam. Objective - Review of Systems Generalized/Overall Review: Reports: No Symptoms Reported EENTM: Reports: No Symptoms Reported Respiratory: Reports: No Symptoms Reported Cardiac: Reports: No Symptoms Reported Abdominal: Reports: No Symptoms Reported Genitourinary Symptoms: Reports: No Symptoms Reported Musculoskeletal Complaints: Reports: No Symptoms Reported Neurological: Reports: No Symptoms Reported Skin: Reports: No Symptoms Reported Endocrine: Reports: No Symptoms Reported Misc: All systems neg except as marked - Vitals Vitals: Last Vital Signs Temp 36.4 C L 06/29/17 10:36 Pulse 98 06/29/17 10:36 Resp 18 06/29/17 10:36 BP 116/77 06/29/17 10:36 Pulse Ox 100 06/29/17 10:36 - Exam Constitutional: Present: Alert, Oriented x3, Cooperative, No distress ENT Exam: Present: hearing grossly normal, moist mucous membranes Respiratory: Present: lungs clear, normal breath sounds, no respiratory distress , no accessory muscle use Cardiovascular/Chest: Present: regular rate, rhythm Abdomen: Present: soft, nontender, nondistended Neurologic: Present: alert, normal mood/affect, oriented x 3 Appearance: Present: appropriate appearance, appropriate insight, neat, no memory impairment Eye contact: Present: cooperative, good eye contact, normal speech Thoughts: Present: normal thought pattern, no apparent hallucination Assessment/Plan Plan Narrative: Continue current IV antibiotics. Continue dressing changes per Dr. Velasco's recommendations. Plan for OR next week. - Problems/Diagnosis (1) Acute osteomyelitis Problem: Acute (2) Diabetic foot ulcer Problem: Acute Qualifiers: Diabetic foot ulcer location: toe Diabetes mellitus type: type 2 Laterality: left Non-pressure ulcer stage: with fat layer exposed Qualified Code(s): E11.621 - Type 2 diabetes mellitus with foot ulcer; L97.522 - Non- pressure chronic ulcer of other part of left foot with fat layer exposed; L97.522 - Non-pressure chronic ulcer of other part of left foot with fat layer exposed; L97.522 - Non-pressure chronic ulcer of other part of left foot with fat layer exposed; L97.522 - Non-pressure chronic ulcer of other part of left foot with fat layer exposed (3) Cellulitis Problem: Chronic Qualifiers: Site of cellulitis: extremity Site of cellulitis of extremity: lower extremity Laterality: left Qualified Code(s): L03.116 - Cellulitis of left lower limb
--- NOTE | 2017-06-29 17:10 | PN ---
Subjective - Date and Time Seen Date: 06/29/17 Time: 17:10 Subjective Narrative: Pt seen at bedside resting. William pain to his left foot. States that he is ready to go home. Objective - Review of Systems Musculoskeletal Complaints: Reports: Other - history of BKA right LE Neurological: Reports: Numbness - Vitals Vitals: Last Vital Signs Temp 37.1 C 06/29/17 14:44 Pulse 84 06/29/17 14:44 Resp 18 06/29/17 14:44 BP 120/56 06/29/17 14:44 Pulse Ox 95 06/29/17 14:44 - Exam Constitutional: Present: Alert, Oriented x3, Cooperative Skin Exam: Present: other - Dressing to left foot CDI with minimal bloody following surgery. Incisions x2 to left medial foot well approximated with sutures intact. Still with some bloody drainage. Slight localized erythema, otherwise has resolved. Slight tenderness with palpation. Neurologic: Present: sensory deficit Appearance: Present: appropriate appearance Assessment/Plan - Problems/Diagnosis (1) Acute osteomyelitis Problem: Acute Narrative: Pt has undergone surgical debridement and resection of infected bone. Appears to be progressing well following surgery. New DSD applied. Will continue on ABX as outpatient per PCP. Ok for d/c home when clear per PCP. Must wear surgical boot at all times when walking. Dressing to stay CDI. I will change in my office on follow up. (2) Diabetic foot ulcer Problem: Acute Qualifiers: Diabetic foot ulcer location: toe Diabetes mellitus type: type 2 Laterality: left Non-pressure ulcer stage: with fat layer exposed Qualified Code(s): E11.621 - Type 2 diabetes mellitus with foot ulcer; L97.522 - Non- pressure chronic ulcer of other part of left foot with fat layer exposed; L97.522 - Non-pressure chronic ulcer of other part of left foot with fat layer exposed; L97.522 - Non-pressure chronic ulcer of other part of left foot with fat layer exposed; L97.522 - Non-pressure chronic ulcer of other part of left foot with fat layer exposed (3) Cellulitis Problem: Chronic Qualifiers: Site of cellulitis: extremity Site of cellulitis of extremity: lower extremity Laterality: left Qualified Code(s): L03.116 - Cellulitis of left lower limb Narrative: Has responded well to IV ABX. Will continue ABX outpatient per PCP. Likely Bactrim DS. Will f/u in office.
[2017-06-29] MEDS: TAMSULOSIN HCL 0.4 MG CAP.SR.24H PO SCH (20:57)
--- NOTE | 2017-06-29 23:33 | PN ---
Subjective - Date and Time Seen Date: 06/29/17 Time: 12:35 Subjective Narrative: No fever, chills, Nausea, or vomiting. Pain controlled. Objective - Vitals Vitals: Last Vital Signs Temp 36.9 C 06/29/17 23:09 Pulse 66 06/29/17 23:09 Resp 18 06/29/17 23:09 BP 129/56 06/29/17 23:09 Pulse Ox 96 06/29/17 23:09 - Exam Constitutional: Present: Alert, Oriented x3, Cooperative Respiratory: Present: lungs clear, normal breath sounds Cardiovascular/Chest: Present: regular rate, rhythm, no murmur Abdomen: Present: Normal bowel sounds, soft, nontender, nondistended Assessment/Plan Plan Narrative: Continue antibiotics, switching to orals antibiotics. Dressing changes per podiatry. Patient is post op day 1. Doing well. Plan to discharge tomorrow. - Problems/Diagnosis (1) Acute osteomyelitis Problem: Acute (2) Diabetic foot ulcer Problem: Acute Qualifiers: Diabetic foot ulcer location: toe Diabetes mellitus type: type 2 Laterality: left Non-pressure ulcer stage: with fat layer exposed Qualified Code(s): E11.621 - Type 2 diabetes mellitus with foot ulcer; L97.522 - Non- pressure chronic ulcer of other part of left foot with fat layer exposed; L97.522 - Non-pressure chronic ulcer of other part of left foot with fat layer exposed; L97.522 - Non-pressure chronic ulcer of other part of left foot with fat layer exposed; L97.522 - Non-pressure chronic ulcer of other part of left foot with fat layer exposed
[2017-06-30] MEDS: HYDROcodone/ACETAMINOPHEN 1 EACH TABLET PO SCH ×3 (00:33→12:34)
[2017-06-30] MEDS: PIPERACILLIN SODIUM/TAZOBACTAM 3.375 GM in DEXTROSE 5 % IN WATER 100 ML IV SCH ×4 (02:41→10:49)
[2017-06-30] MEDS: HEPARIN SODIUM,PORCINE 5,000 UNITS/ML VIAL SC SCH (06:27)
[2017-06-30] MEDS: VANCOMYCIN HCL 1.75 GM in DEXTROSE 5 % IN WATER 500 ML IV SCH ×2 (09:01)
[2017-06-30] MEDS: SACCHAROMYCES BOULARDII 250 MG CAPSULE PO SCH (09:01)
[2017-06-30] MEDS: FAMOTIDINE 20 MG TABLET PO SCH (09:01)
[2017-06-30] MEDS ORDERED: SULFAMETHOXAZOLE/TRIMETHOPRIM 1 TAB TABLET PO SCH (12:15)
[2017-06-30 14:43] VITALS: BP 92/53
--- NOTE | 2017-06-30 16:41 | DS ---
(1) Acute osteomyelitis Problem: Acute (2) Diabetic foot ulcer Problem: Acute Qualifiers: Diabetic foot ulcer location: toe Diabetes mellitus type: type 2 Laterality: left Non-pressure ulcer stage: with fat layer exposed Qualified Code(s): E11.621 - Type 2 diabetes mellitus with foot ulcer; L97.522 - Non- pressure chronic ulcer of other part of left foot with fat layer exposed; L97.522 - Non-pressure chronic ulcer of other part of left foot with fat layer exposed; L97.522 - Non-pressure chronic ulcer of other part of left foot with fat layer exposed; L97.522 - Non-pressure chronic ulcer of other part of left foot with fat layer exposed Description of Stay: Hernandez is a 66 yo male with diabetes who was admitted for worsening diabetic foot ulcer with cellulitis and concerns for osteomyelitis. Imaging confirmed osteomyelitis. He was started on vancomycin and zosyn. Podiatry was consulted. Patient was medically cleared for surgery. He had surgical debridement of infected tissue on 06/28/17. He was then monitored post operatively and switched to Bactrim DS. He was doing well and discharged to home. Procedures Performed: see notes below List Procedures: 06/28/17 - Podiatry with Incision/debridement of Left foot with excision of infected tissue and bone. Discharge Disposition: Home self care Disposition: Home self-care Condition: Good Discharge Activity: Weight bearing - May bear weight in surgical boot. Discharge Diet: Consistent carbs Referrals: Minoo Velasco DPM [Staff Physician] - 07/02/17 10:45 am Problem Oriented Discharge Instructions to Patient/Family: Bone and Joint Infections, Adult Additional Patient Instructions (free text): [facility]. Follow up with Dr. Velasco 07/02 at 10:45 in her office. Prescriptions (Any new or edited meds): HYDROcodone/ACETAMINOPHEN [[place] 5-325] 2 each PO Q6H #60 tablet Sulfamethoxazole/Trimethoprim [Bactrim Ds] 1 tab PO BID #28 tablet Complete Home Medications List: Complete Home Medication List: Tamsulosin HCl [Flomax] 0.4 mg PO HS 11/07/13 Blood Sugar Diagnostic, Drum [Accu-Chek Compact Plus Strips] 1 each MC DAILY 08/13 HYDROcodone/ACETAMINOPHEN [Hydrocodon-Acetaminophen 5-325] 1 each PO Q6H #30 tablet 05/08/17 Saccharomyces Boulardii [Florastor] 250 mg PO BID #28 capsule 05/08/17 HYDROcodone/ACETAMINOPHEN [[place] 5-325] 2 each PO Q6H #60 tablet 06/30/17 Sulfamethoxazole/Trimethoprim [Bactrim Ds] 1 tab PO BID #28 tablet 06/30/17
== END 2017-06-30 17:50 | disposition home or self-care (01) | DRG 623 ==
LOC: ER 16:21 → MS 18:47 → INTOOBSV 18:47 → OBSVTOIN 20:00
PROVIDERS: ADMIT Internal Medicine; ATTEND Family Medicine
PROC: 0JBR0ZZ Excision of Left Foot Subcutaneous Tissue and Fascia, Open Approach (ICD-10-PCS; 2017-06-28)
PROC: 0QBP0ZZ Excision of Left Metatarsal, Open Approach (ICD-10-PCS; principal; 2017-06-28 12:00)
DX: E11.621 Type 2 diabetes mellitus with foot ulcer (principal); M86.172 Other acute osteomyelitis, left ankle and foot; L03.032 Cellulitis of left toe; E11.40 Type 2 diabetes mellitus with diabetic neuropathy, unspecified; L97.522 Non-pressure chronic ulcer of other part of left foot with fat layer exposed; I10 Essential (primary) hypertension; Z98.84 Bariatric surgery status; Z89.431 Acquired absence of right foot; Z87.891 Personal history of nicotine dependence; Z79.4 Long term (current) use of insulin

== ENCOUNTER 2017-09-26 23:50 | Emergency (ER) | payer MEDICARE, OTHER ==
--- NOTE | 2017-09-27 00:16 | ERNOTE ---
Medical Problem HPI - General Chief Complaint: Altered Mental Status Time Seen by Provider: 09/26/17 23:54 Source: patient, family Exam Limitations: no limitations - Immun/Allergies/Home Medications Immunizations: IMMUNIZATION HX Immunizations Up to Date Yes History of Influenza Vaccine No Hx Pneumococcal Vaccination No Allergies/Adverse Reactions: Allergies Influenza Virus Vaccines Adverse Reaction (Verified 09/27/17 00:11) Vomiting Home Medications: HOME MEDICATIONS Blood Sugar Diagnostic, Drum [Accu-Chek Compact Plus Strips] 1 each MC DAILY 08/13 [Last Taken Unknown] HYDROcodone/ACETAMINOPHEN [[place] 5-325] 2 each PO Q6H #60 tablet 06/30/17 [Last Taken Unknown] - History of Present History Narrative: Patient and family state that when he woke up in the morning he started not feeling well. He had large amount of diarrhea twice, denies vomiting or abdominal pain. Family reports that he was also acting confused,did not make sense, speech garbled at times. He is a diabetic, his glucose was in the 180's prior to coming here He also had a brain stimulator implanted for tremors in 12/2016, when they called up to the [facility] they were told to come to the closest ER for evaluation Review of Systems - Review of Systems Constitutional: Absent: recent illness, fever, chills EYE: Absent: vision changes Respiratory: Absent: shortness of breath Cardiology: Absent: chest pain Gastrointestinal/Abdominal: Present: diarrhea. Absent: nausea, vomiting, abdominal pain Genitourinary: Present: no symptoms reported Musculoskeletal: Absent: back pain Neurological: Present: headache. Absent: weakness, numbness - Patient's Past Medical History Patient History - Medical: Diabetes Type 2, Kidney stone, Osteoarthritis, UTI'S Patient History - Cardiac/Respiratory: Hypertension, Hyperlipidemia, Pulmonary Embolism, Sleep Apnea Patient History - Cancer: No Hx of Cancer Patient History - Surgical Procedures: Amputation, Gastric Bypass, Total Knee Replacement, Other Patient History - Other: None - Family History Mother Family History - Medical: , Diabetes Type 2 Family History - Cardiac/Respiratory: No pertinent hx Father Family History - Medical: Family History - Cardiac/Respiratory: Coronary Heart Disease, COPD Grandmother-Paternal Family History - Medical: , Diabetes Type 2 Family History - Cardiac/Respiratory: No pertinent hx Grandmother-Maternal Family History - Medical: , Diabetes Type 2 Family History - Cardiac/Respiratory: No pertinent hx - Social History Living Situations: home Abuse History: No History of abuse Psych History: No pertinent hx Smoking Status: Never smoker Alcohol Use: rarely Drug Use: none - Immunizations Immunizations Up to Date: Yes Hx Pneumococcal Vaccination: No History of Influenza Vaccine: No Physical Exam - Physical Exam General Appearance: Present: wd/wn, alert, no apparent distress Head Exam: Present: normal inspection, no evidence of injury Eye Exam: Normal inspection: bilateral, PERRL: bilateral, EOMI: bilateral Ears, Nose, Throat: Present: normal ENT inspection, normal pharynx Neck: Present: normal inspection, supple Respiratory: Present: no respiratory distress, normal breath sounds, no accessory muscle use, lungs clear Cardiovascular/Chest: Present: regular rate, rhythm, no murmur Gastrointestinal/Abdominal: Present: normal bowel sounds, nontender, nondistended, soft Extremity Exam: Present: normal except - - left first toe mission, right leg BKA , no obvoius wounds or signs of infection Neurological Exam: Present: alert, oriented, normal mood/affect, no motor/ sensory deficits, 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 - Vital Signs Patient's Vital Signs:: I have reviewed the patient's vital signs. Vital Signs: Vital Signs 09/26/17 09/27/17 23:54 00:04 Temperature 37.6 C H Pulse Rate 92 72 Respiratory 14 12 Rate Blood Pressure 134/66 134/66 O2 Sat by Pulse 97 98 Oximetry - EKG EKG: NSR, unchanged from, other - intraventricular conduction delay, no acute changes EKG read: Interp. by ut - CT/Ultrasound CT/Ultrasound Narrative: CT head: no acute findings, deep brain stimulator electrodes positioned at level of sub thalamic nuclei - Progress/Reassessment Chief Complaint: Altered Mental Status Progress Note-Subjective: 09/27/17 01:08 patient sleeping, easily arousable, discussed lab results with patient and waiting for CT results 09/27/17 01:13 call to [facility] 09/27/17 01:[address] Yu (neurosurgery) no indications for emergency transfer as CT and labs are normal recommends calling neurology in the am and discussing earlier follow up appointment to adjust deep brain stimulator Departure Clinical Impression: Confusion, Status post deep brain stimulator placement - Departure Disposition: Home self-care Condition: Stable Instructions: Confusion Additional Instructions: call your neurologist at the [facility] in the morning and discuss follow and possible adjustment of stimulator Referrals: Carlos Luo DO [Primary Care Provider] -
[2017-09-27 00:20] LABS: Hematocrit 32.4 % (42.0-52.0); Hemoglobin 10.6 gm/dL (13.5-18.0); Mean Cell Volume 76.2 fl (78-100); Mean Corpuscular Hemoglobin 24.9 pg (27-31); Mean Corpuscular Hgb Conc 32.7 g/dl (32-36); Mean Platelet Volume 8.5 fl (6.0-9.5); Neutrophil # 4.9 K/mm3 (1.3-6.0); Neutrophil % 62.1 % (42-75.0); Platelet Count 236 K/mm3 (150-450); Red Blood Count 4.25 M/mm3 (4.7-6.0); Red Cell Distribution Width 15.8 % (11.5-14.0); White Blood Count 7.9 K/mm3 (4.0-10.5)
[2017-09-27 00:46] LABS: ALT 18 U/L (19-67); AST 17 U/L (0-48); Albumin * 3.3 gm/dl (3.4-5.0); Alkaline Phosphatase * 112 U/L (50-170); Anion Gap 10.5 mmol/L (6.8-13.8); BUN/Creatinine Ratio 12.8 (9.0-21.6); Bilirubin, Total 0.3 mg/dL (0.0-1.1); Blood Urea Nitrogen 11 mg/dL (6-23); Ca. Corrected For Albumin 8.8 mg/dL (8.4-10.2); Calcium * 8.6 mg/dL (7.9-10.9); Carbon Dioxide 29.2 mmol/L (24-32.6); Chloride 102 mmol/L (97-106); Glucose * 106 mg/dL (70-110); Potassium 3.7 mmol/L (3.4-4.6); Sodium 138 mmol/L (132-142); Total Protein 7.1 gm/dL (6.2-8.2)
[2017-09-27 00:47] LABS: Troponin I 0.019 ng/ml (0.00-0.10)
[2017-09-27] MEDS ORDERED: ACETAMINOPHEN 325 MG TABLET ONE (00:49)
[2017-09-27] MEDS ORDERED: ACETAMINOPHEN 325 MG TABLET PO ONE (00:49)
[2017-09-28 08:29] VITALS: BP 131/69
== END 2017-09-27 01:35 | disposition home or self-care (01) ==
LOC: ER 23:50
DX: R41.0 Disorientation, unspecified; Z96.89 Presence of other specified functional implants; Z87.442 Personal history of urinary calculi; Z87.440 Personal history of urinary (tract) infections; Z86.711 Personal history of pulmonary embolism